=== PATIENT | female | born 1950 | race Caucasian/White ===

== ENCOUNTER → 2017-06-10 11:54 | Outpatient (CLI) | payer MEDICARE, OTHER, SELFPAY ==
[2017-06-10 15:52] LABS: Absolute Neutrophil Count 4.5 X10^3/uL (2.0-7.7); Basophil# 0.03 X10^3/uL; Basophil% 0.4 % (0-1); Eosinophils% 2.7 % (0-5); Hemoglobin 13.6 g/dl (12.0-15.0); Lymphocyte % 27.2 % (19-41); Mean Corp Hgb Conc 32.4 g/gl (32-36); Mean Corpuscular Volume 89.6 fL (81-99); Mean Platelet Vol. 10.3 fl (6.2-12.0); Monocyte# 0.62 X10^3/uL; Monocyte% 8.4 % (0-10); Neutrophil # 4.48 X10^3/uL (2.7-7.7); Platelet Count 332 K/mm3 (150-450); RBC Distribution Width SD 45.7 fl (35.1-43.9); Red Blood Count 4.69 M/mm3 (4.2-5.4); White Blood Count 7.4 K/mm3 (4.4-11.0)
[2017-06-10 16:01] LABS: POSITIVE COUNT NO; POSITIVE DIFFERENTIAL NO; POSITIVE MORPHOLOGY NO
[2017-06-10 16:07] LABS: Microalbumin,Random Urine < 5.0 mg/L (NO RANGE EST.)
[2017-06-10 16:19] LABS: Hemoglobin A1c 7.5 % (4.2-6.3)
[2017-06-10 16:20] LABS: ALB/GLOB Ratio 0.9 RATIO (0.9-2.4); AST(SGOT) 15 U/L (15-37); Alanine Aminotransfer ALT/SGPT 20 U/L (13-56); Albumin, Serum 3.7 g/dL (3.2-5.0); Alkaline Phosphatase 60 U/L (45-117); Anion Gap 7 (5-15); BUN 17 mg/dL (7-18); BUN/Creat Ratio 20.8 RATIO (10-20); Chloride 98 mmol/L (98-107); Cholesterol 151 mg/dL (200); Creatinine, Serum 0.82 mg/dL (0.55-1.02); EST Glomerular Filtration Rate 74 mL/min (>60); Est Glom Filt Rate - Afr Amer 89 mL/min (>60); Globulin 3.9 g/dL (2.2-4.2); Glucose 123 mg/dL (74-106); High Density Lipoprotein 41 mg/dL; Potassium 3.7 mmol/L (3.5-5.1); Protein, Total 7.6 g/dL (6.4-8.2); Sodium Level 137 mmol/L (136-145); Triglycerides 141 mg/dL; Very Low Density Lipoprotein 28 mg/dL (5-40)
[2017-06-10 16:26] LABS: Vitamin D,25 Hydroxy 48.4 ng/mL (29.95-100.01)
== END ==
PROVIDERS: Family Provider Family Medicine; PCP Family Medicine; Visit Provider Family Medicine
DX: E11.9 Type 2 diabetes mellitus without complications (principal); I10 Essential (primary) hypertension; E78.5 Hyperlipidemia, unspecified; E55.9 Vitamin D deficiency, unspecified
CPT/HCPCS: 36415; 80053; 80061; 82043; 82306; 82570; 83036; 85025

== ENCOUNTER 2017-10-20 21:53 | Emergency (ER) | payer MEDICARE, OTHER, SELFPAY ==
[2017-10-20 21:53] VITALS: BP 157/77; PULSE 89; RESP 16; TEMP 36.9; O2SAT 93; BMI 42.3
--- NOTE | 2017-10-20 22:11 | ED.VISSUMM ---
- ER Visit Summary Date of Service: 10/20/17 Chief Complaint: [Pain and swelling to left leg] History of Present Illness: The patient is a 67 F [presents the emergency department complaint of pain and swelling the left leg that she noticed 2 days ago. Patient states that she just got home from a bus trip where she was on a bus [address] Patient is concerned about blood clot. Patient states that both her daughter and her mother have had pulmonary emboli. Patient also gives history of travel to [place] at the end of August. Patient denies any chest pain or shortness of breath. Patient denies recent surgery. She herself is never had a blood clot before. Patient denies any trauma to her leg.] Physical Examination: [HEENT-PERRLA, EOMI. Cranial nerves II through XII grossly intact. TMs clear. Mucous membranes moist. No adenopathy. Cardiovascular-regular rate and rhythm without murmur or ectopy Lungs-clear to auscultation, chest wall stable without crepitus or subcu emphysema Abdomen-normoactive bowel sounds, soft, nontender, no rebound or rigidity, no peritoneal signs. Extremities-intact ?4, normal range of motion, normal pulses, atraumatic]. Left leg-patient has some trace edema noted. Patient does have some firmness in the soft tissues of the medial left leg along the venous distribution concerning for possible superficial phlebitis versus DVT. I do not palpate any ropes or cords behind the knee. There is no cellulitis. She is neurovascularly intact. Test Results: [None available at this time] Emergency Department Course and Treatment: [Patient was given 1 dose of Xarelto p.o. 20 mg and given a prescription to have ultrasound of left leg performed tomorrow] Treatment Plan: Patient to return to the hospital tomorrow to have venous duplex of the left lower extremity [] Disposition: [Discharged home in stable condition] Impression: [Left leg pain and swelling-rule out DVT] This note was generated with [employer] dictation software. It may contain incorrect words, spelling, and punctuation that were not noted in review of the chart prior to signing ED Disposition - Plan for ED Patient: Chief Complaint: Lower Extremity Injury Referrals: Dejuan Chavez DO [Primary Care Provider] -
--- NOTE | 2017-10-20 22:14 | ED.DEP ---
ED Disposition - Plan for ED Patient: Chief Complaint: Lower Extremity Injury Instructions: ED Leg Swelling Unilateral Referrals: Dejuan Chavez DO [Primary Care Provider] - As Needed Additional Instructions: have ultrasound of leg done tomorrow morning
[2017-10-20] MEDS: Rivaroxaban 20 MG Tablet PO (22:45)
== END 2017-10-20 22:47 | disposition home or self-care (01) ==
PROVIDERS: Emergency Provider Emergency Medicine; Family Provider Family Medicine; PCP Family Medicine
DX: M79.605 Pain in left leg (principal); M79.89 Other specified soft tissue disorders; I10 Essential (primary) hypertension; I27.20 Pulmonary hypertension, unspecified; E78.00 Pure hypercholesterolemia, unspecified; E11.9 Type 2 diabetes mellitus without complications; Z79.84 Long term (current) use of oral hypoglycemic drugs; Z79.899 Other long term (current) drug therapy
CPT/HCPCS: 99283

== ENCOUNTER → 2017-10-21 11:16 | Outpatient (CLI) | payer MEDICARE, OTHER, SELFPAY ==
--- NOTE | 2017-10-21 11:19 | VDLE_ITS ---
Reason For Study: LEG PAIN AND SWELLING RIGHT LEFT CFV is compressible, spontaneous, phasic, GSV is normal. competent and demonstrates normal CFV is compressible, spontaneous, phasic, augmentation. competent, and demonstrates normal Procedure augmentation. Exam performed in department. FV is compressible, spontaneous, phasic, A preliminary report was called and/or faxed competent and demonstrates normal to Dr. Chavez. augmentation. POP V is compressible, spontaneous, phasic, competent and demonstrates normal augmentation. T/P Trunk is compressible. PTV is compressible. LT PerV is compressible. Interpretation Summary Deep veins of the left lower extremity are patent and compressible segmentally. There is no evidence of left lower extremity deep vein thrombosis. Valvular competence appears intact within the proximal deep venous system on the left . The left greater saphenous vein appears patent and compressible segmentally. Ordering Physician: Shaylee Torres Referring Physician: Dejuan Chavez Performed By: Maria Elena Mclaughlin RVT
== END ==
PROVIDERS: Family Provider Family Medicine; PCP Family Medicine; Visit Provider Emergency Medicine
DX: M79.605 Pain in left leg (principal); M79.89 Other specified soft tissue disorders
CPT/HCPCS: 93971

== ENCOUNTER → 2018-08-15 10:56 | Outpatient (CLI) | payer MEDICARE, OTHER, SELFPAY ==
[2018-08-15 12:41] LABS: Absolute Lymphocyte Count 2.24 X10^3/ul (0.83-4.51); Absolute Neutrophil Count 5.3 X10^3/uL (2.0-7.7); Basophil# 0.06 X10^3/uL; Basophil% 0.7 % (0-1); Eosinophil# 0.22 X10^3/uL; Eosinophils% 2.6 % (0-5); Hematocrit 42.5 % (37-47); Hemoglobin 10.8 g/dl (12.0-15.0); Lymphocyte # 2.24 X10^3/ul (4.0); Lymphocyte % 26.5 % (19-41); Mean Corp Hgb Conc 25.4 g/gl (32-36); Mean Corpuscular Hgb 21.8 pg (27.0-32.0); Mean Corpuscular Volume 85.9 fL (81-99); Mean Platelet Vol. 10.2 fl (6.2-12.0); Monocyte# 0.61 X10^3/uL; Monocyte% 7.2 % (0-10); Neutrophil # 5.32 X10^3/uL (2.7-7.7); Neutrophil % 62.9 % (47-70); Platelet Count 326 K/mm3 (150-450); RBC Distribution Width CV 13.5 % (11.6-14.6); RBC Distribution Width SD 41.8 fl (35.1-43.9); Red Blood Count 4.95 M/mm3 (4.2-5.4); White Blood Count 8.5 K/mm3 (4.4-11.0)
[2018-08-15 12:47] LABS: POSITIVE COUNT NO; POSITIVE DIFFERENTIAL NO; POSITIVE MORPHOLOGY NO
[2018-08-15 13:17] LABS: Microalbumin:Creatinine Ratio 6.5 mg/g CRE (<30 mg/g CRE)
[2018-08-15 13:19] LABS: Vitamin D,25 Hydroxy 73.9 ng/mL (29.95-100.01)
[2018-08-15 13:20] LABS: ALB/GLOB Ratio 0.8 RATIO (0.9-2.4); AST(SGOT) 11 U/L (15-37); Alanine Aminotransfer ALT/SGPT 19 U/L (13-56); Albumin, Serum 3.4 g/dL (3.2-5.0); Alkaline Phosphatase 65 U/L (45-117); Anion Gap 9 (5-15); BUN 18 mg/dL (7-18); BUN/Creat Ratio 21.7 RATIO (10-20); Calcium,Total 9.1 mg/dL (8.5-10.1); Chloride 101 mmol/L (98-107); Cholesterol 150 mg/dL (200); Creatinine, Serum 0.83 mg/dL (0.55-1.02); EST Glomerular Filtration Rate 72 mL/min (>60); Est Glom Filt Rate - Afr Amer 88 mL/min (>60); Globulin 4.1 g/dL (2.2-4.2); Glucose 142 mg/dL (74-106); High Density Lipoprotein 43 mg/dL; Potassium 3.2 mmol/L (3.5-5.1); Protein, Total 7.5 g/dL (6.4-8.2); Sodium Level 141 mmol/L (136-145); Triglycerides 155 mg/dL; Very Low Density Lipoprotein 31 mg/dL (5-40)
[2018-08-15 13:29] LABS: Hemoglobin A1c 7.8 % (4.2-6.3)
== END ==
LOC: LAB.FUTURE 03-02 18:31 → BFHLAB 09-01 15:21
PROVIDERS: Family Provider Family Medicine; PCP Family Medicine; Visit Provider Family Medicine
DX: E11.9 Type 2 diabetes mellitus without complications (principal); I10 Essential (primary) hypertension; E78.5 Hyperlipidemia, unspecified; E55.9 Vitamin D deficiency, unspecified
CPT/HCPCS: 36415; 80053; 80061; 82043; 82306; 82570; 83036; 85025

== ENCOUNTER → 2018-09-16 13:03 | Outpatient (CLI) | payer MEDICARE, OTHER, SELFPAY ==
[2018-09-16 14:36] LABS: Absolute Lymphocyte Count 1.97 X10^3/ul (0.83-4.51); Absolute Neutrophil Count 4.3 X10^3/uL (2.0-7.7); Basophil# 0.05 X10^3/uL; Basophil% 0.7 % (0-1); Eosinophils% 2.8 % (0-5); Hematocrit 40.8 % (37-47); Hemoglobin 13.5 g/dl (12.0-15.0); Lymphocyte # 1.97 X10^3/ul (4.0); Mean Corp Hgb Conc 33.1 g/gl (32-36); Mean Corpuscular Volume 87.7 fL (81-99); Mean Platelet Vol. 10.1 fl (6.2-12.0); Monocyte# 0.55 X10^3/uL; Monocyte% 7.8 % (0-10); Neutrophil # 4.25 X10^3/uL (2.7-7.7); Neutrophil % 60.6 % (47-70); Platelet Count 277 K/mm3 (150-450); RBC Distribution Width CV 13.6 % (11.6-14.6); RBC Distribution Width SD 42.6 fl (35.1-43.9); Red Blood Count 4.65 M/mm3 (4.2-5.4)
[2018-09-16 14:41] LABS: POSITIVE COUNT NO; POSITIVE DIFFERENTIAL NO; POSITIVE MORPHOLOGY NO
[2018-09-16 15:10] LABS: Ferritin 78 ng/mL (8-252); Iron 78 ug/dL (50-170)
[2018-09-16 15:18] LABS: Vitamin B12 227 pg/mL (211-911)
== END ==
LOC: LAB.FUTURE 03-19 00:30 → BFHLAB 09-01 15:22
PROVIDERS: Family Provider Family Medicine; PCP Family Medicine; Visit Provider Family Medicine
DX: D64.9 Anemia, unspecified (principal)
CPT/HCPCS: 36415; 82607; 82728; 83540; 85025

== ENCOUNTER → 2019-04-06 12:27 | Outpatient (CLI) | payer MEDICARE, OTHER, SELFPAY ==
--- NOTE | 2019-04-06 12:33 | BI_ITS ---
MAMMOGRAPHY - BILATERAL SCREENING REASON FOR EXAM: Female, 68 years old. Routine annual screening examination. PERTINENT HISTORY: Sister with breast cancer. Aunt with breast cancer. TECHNIQUE: Digital bilateral breast joaquín (3D mammographic acquisition) in the CC and MLO projections. 2-D mediolateral oblique (MLO) and craniocaudad (CC) views of both breasts were obtained. CAD: Full Field Digital Mammography with Computer Added Detection was performed. COMPARISON: Comparison is made with prior study dated January 23, 2017 and outside examination dated July 21, 2014. FINDINGS: Breast Composition: The breasts are almost entirely fatty. There are no dominant masses or suspicious calcifications. No other significant abnormalities are identified. There has been no significant change since the prior study. BI/SCREEN MAMM (CAD) W/JOAQUÍN BILAT IMPRESSION: Stable bilateral screening mammogram. Yearly follow-up mammogram recommended. (A) ASSESSMENT CATEGORY: BIRADS Category 1: Negative. A letter regarding these results will be sent to the patient by the facility within 30 days. Approximately 10% of breast cancers are not detected by mammography. A normal mammogram should not delay biopsy of a clinically suspicious abnormality. [id number] Electronically Signed: Richard Doe, at 13:26 EST , Service support ,
== END ==
PROVIDERS: Family Provider Family Medicine; PCP Family Medicine; Referring Provider Family Medicine; Visit Provider Family Medicine
DX: Z12.31 Encounter for screening mammogram for malignant neoplasm of breast (principal); Z80.3 Family history of malignant neoplasm of breast
CPT/HCPCS: 77063; 77067

== ENCOUNTER → 2019-08-11 11:33 | Outpatient (CLI) | payer MEDICARE, OTHER, SELFPAY ==
[2019-08-11 15:04] LABS: Absolute Lymphocyte Count 2.22 X10^3/uL (0.83-4.51); Absolute Neutrophil Count 4.9 X10^3/uL (2.0-7.7); Basophil# 0.09 X10^3/uL; Basophil% 1.1 % (0-1); Eosinophil# 0.22 X10^3/uL; Eosinophils% 2.7 % (0-5); Hematocrit 41.6 % (37-47); Hemoglobin 13.5 g/dL (12.0-15.0); Lymphocyte # 2.22 X10^3/ul (4.0); Lymphocyte % 27.3 % (19-41); Mean Corp Hgb Conc 32.5 g/dL (32-36); Mean Corpuscular Hgb 29.9 pg (27.0-32.0); Mean Corpuscular Volume 92.2 fL (81-99); Mean Platelet Vol. 10.2 fl (6.2-12.0); Monocyte# 0.72 X10^3/uL; Monocyte% 8.9 % (0-10); NRBC Flagged by Analyzer 0 % (0-5); Neutrophil # 4.85 X10^3/uL (2.7-7.7); Neutrophil % 59.6 % (47-70); Platelet Count 302 K/mm3 (150-450); RBC Distribution Width CV 13.6 % (11.6-14.6); RBC Distribution Width SD 45.7 fl (35.1-43.9); Red Blood Count 4.51 M/mm3 (4.2-5.4); White Blood Count 8.1 K/mm3 (4.4-11.0)
[2019-08-11 15:26] LABS: Vitamin B12 1052 pg/mL (211-911); Vitamin D,25 Hydroxy 81.6 ng/mL
[2019-08-11 15:28] LABS: Microalbumin,Random Urine 14.3 mg/L (NO RANGE EST.); Microalbumin:Creatinine Ratio 9.7 mg/g CRE (<30 mg/g CRE)
[2019-08-11 15:31] LABS: ALB/GLOB Ratio 0.9 RATIO (0.9-2.4); AST(SGOT) 18 U/L (15-37); Alanine Aminotransfer ALT/SGPT 26 U/L (13-56); Albumin, Serum 3.4 g/dL (3.2-5.0); Alkaline Phosphatase 58 U/L (45-117); Anion Gap 7 (5-15); BUN 14 mg/dL (7-18); BUN/Creat Ratio 17.5 RATIO (10-20); Chloride 103 mmol/L (98-107); Cholesterol 165 mg/dL (200); EST Glomerular Filtration Rate 75 mL/min (>60); Est Glom Filt Rate - Afr Amer 91 mL/min (>60); Ferritin 111 ng/mL (8-252); Globulin 3.7 g/dL (2.2-4.2); Glucose 149 mg/dL (74-106); High Density Lipoprotein 45 mg/dL; Iron 90 ug/dL (50-170); Potassium 4.1 mmol/L (3.5-5.1); Protein, Total 7.1 g/dL (6.4-8.2); Sodium Level 139 mmol/L (136-145); Thyroid Stim Hormone (TSH) 4.01 uIU/mL (0.358-3.74); Triglycerides 189 mg/dL; Very Low Density Lipoprotein 38 mg/dL (5-40)
== END ==
PROVIDERS: PCP Family Medicine; Visit Provider Family Medicine
DX: E11.9 Type 2 diabetes mellitus without complications (principal); I10 Essential (primary) hypertension; D64.9 Anemia, unspecified; E78.5 Hyperlipidemia, unspecified; E53.8 Deficiency of other specified B group vitamins; E55.9 Vitamin D deficiency, unspecified; Z51.81 Encounter for therapeutic drug level monitoring
CPT/HCPCS: 36415; 80053; 80061; 82043; 82306; 82570; 82607; 82728; 83036; 83540; 84443; 85025

== ENCOUNTER → 2020-02-23 13:00 | Outpatient (CLI) | payer MEDICARE, OTHER, SELFPAY ==
[2020-02-23 15:33] LABS: Hemoglobin A1c 6.9 % (3.8-5.6)
== END ==
PROVIDERS: PCP Family Medicine; Visit Provider Family Medicine
DX: E11.9 Type 2 diabetes mellitus without complications (principal); E55.9 Vitamin D deficiency, unspecified
CPT/HCPCS: 36415; 82306; 83036

== ENCOUNTER → 2020-03-10 06:39 | Outpatient (CLI) | payer MEDICARE, OTHER, SELFPAY ==
--- NOTE | 2020-03-10 09:46 | STRESSREP_ITS ---
Stress Test Report Date: Procedure: Pharmacologic stress nuclear imaging study Indications: Shortness of breath/dyspnea on exertion; fatigue Consent: Per the patient Procedure: The patient underwent pharmacologic (Regadenoson) evaluation with a peak heart rate of 113 beats per minute (75%predicted maximal heart rate) and a peak blood pressure of 128/84 mmHg. The baseline ECG demonstrated sinus rhythm; PVCs; nonspecific ST/T wave abnormality. The peak pharmacologic ECG demonstrated no obvious ECG changes. There were occasional PVCs pretest, during infusion, and recovery. There was no complaint of chest discomfort during pharmacologic infusion or recovery. The examination was discontinued secondary to completion of protocol. Impression: 1. Pharmacologic (Regadenoson) evaluation 2. Peak pharmacologic ECG with with no obvious ECG changes. 3. There were occasional PVCs pretest, during infusion, and recovery. 4. Nuclear images pending Myocardial perfusion imaging study: Technique: The patient was injected with 14.8 millicuries of technetium 99m Cardiolite and subsequently rest SPECT Cardiolite nuclear imaging was obtained in the horizontal long, vertical long, and short axis views. The patient underwent pharmacologic (Regadenoson) evaluation with a peak heart rate of 113 beats per minute (75% percent predicted maximal heart rate) and a peak blood pressure of 128/84 mmHg. The patient was injected with 44.5 millicuries of technetium 99m Cardiolite and subsequently stress SPECT Cardiolite nuclear imaging was obtained in the horizontal long, vertical long, and short axis views. A gated Cardiolite study at peak stress was obtained. Interpretation: Rest and stress SPECT Cardiolite nuclear imaging status post realignment, normalization, and attenuation correction demonstrate relative uniform tracer uptake and myocardial perfusion appearing within normal limits. There is end systolic thickening and brightening. The gated Cardiolite study demonstrates myocardial thickening and inward wall motion. The reported LVEF is 15%. Impression: 1. Rest and stress SPECT Cardiolite nuclear imaging demonstrate relative uniform tracer uptake and myocardial perfusion appearing within normal limits. 2. The gated Cardiolite study reports an LVEF of 15%. Comment: Gated Cardiolite study reports an LVEF 15%: Question accuracy secondary to underlying ventricular ectopy: Consider further evaluation of left ventricular wall motion, systolic function, and estimated LVEF with a transthoracic echocardiogram if clinically indicated. This note was generated with [employer] software. It may contain incorrect words, spelling, and punctuation that were not noted in checking the note before signing.
== END ==
PROVIDERS: PCP Family Medicine; Referring Provider Family Medicine; Visit Provider Family Medicine
DX: R06.00 Dyspnea, unspecified (principal); R53.83 Other fatigue; E11.9 Type 2 diabetes mellitus without complications
CPT/HCPCS: 78452; 93017; A9500; A4216; J2785

== ENCOUNTER → 2020-03-23 08:23 | Outpatient (CLI) | payer MEDICARE, OTHER, SELFPAY ==
--- NOTE | 2020-03-23 08:24 | ECHOCS_ITS ---
Reason For Study: DYSPNEA ON EXERTION Procedure This was a 2D Doppler, Color Flow transthoracic echocardiogram. The study was technically difficult. Exam performed in department. Left Ventricle Normal LV size. Left ventricular systolic function is normal. The estimated ejection fraction is 65 %. Stage 1 diastolic dysfunction. No regional wall motion abnormalities noted. Right Ventricle Normal RV size. Normal systolic function. Atria Normal left atrium. Normal right atrium. Tricuspid Valve Normal tricuspid valve. Mild (1+) tricuspid valve insufficiency. Pulmonary artery systolic pressure is 26 mmHg. Aortic Valve Normal aortic valve. Pulmonic Valve The pulmonic valve is not well visualized. Great Vessels Normal aortic root. The pulmonary artery is normal size. Normal inferior vena cava. Pericardium/Pleural No pericardial effusion. Medication 22 gauge I.V. with prn adaptor inserted into right arm. Diluted definity 2ml given slow IV push to enhance endocardial definition. MMode/2D Measurements & Calculations LVIDd: 4.4 cm IVSd: 0.98 cm Ao root diam: 3.2 cm LVIDs: 2.9 cm LVPWd: 1.0 cm RVDd: 2.9 cm FS: 33.5 % LAV(MOD-bp): 38.4 ml LVAd ap4: 20.5 cm2 SV(MOD-sp4): 33.0 ml LAV(MOD-bp) Indexed: 19.5 ml/m2 EDV(MOD-sp4): 52.0 ml LAV(MOD-sp2): 40.2 ml EDV(sp4-el): 51.9 ml LAV(MOD-sp4): 36.9 ml LVAs ap4: 10.9 cm2 ESV(MOD-sp4): 19.0 ml ESV(sp4-el): 19.3 ml EF(MOD-sp4): 63.4 % EF(sp4-el): 62.7 % SV(sp4-el): 32.5 ml LA A4 area: 15.2 cm2 LA dimension(2D): 3.5 cm RA A4 area: 9.6 cm2 Time Measurements MV dec time: 0.29 sec Doppler Measurements & Calculations MV E max yoel: 45.4 cm/sec Lat Peak E' Yoel: 5.6 cm/sec Med Peak E' Yoel: 7.2 cm/sec MV A max yoel: 75.1 cm/sec E/E' lat: 8.1 E/E' med: 6.3 MV E/A: 0.60 Ao V2 max: 123.4 cm/sec LV V1 max: 98.6 cm/sec PA V2 max: 89.8 cm/sec Ao max P.1 mmHg LV V1 max P.9 mmHg TR max yoel: 237.5 cm/sec TR max P.1 mmHg Interpretation Summary Normal LV size. Left ventricular systolic function is normal. The estimated ejection fraction is 65 %. Stage 1 diastolic dysfunction. Contrast injection was performed. Ordering Physician: Dejuan Chavez Referring Physician: Dejuan Chavez Performed By: Haleigh Baron RDCS
== END ==
PROVIDERS: PCP Family Medicine; Referring Provider Family Medicine; Visit Provider Family Medicine
DX: R06.00 Dyspnea, unspecified (principal); R94.30 Abnormal result of cardiovascular function study, unspecified
CPT/HCPCS: 93306; Q9957; A4216; C8929

== ENCOUNTER → 2020-08-26 13:55 | Outpatient (CLI) | payer MEDICARE, OTHER, SELFPAY ==
[2020-08-26 15:38] LABS: Absolute Lymphocyte Count 2.11 X10^3/uL (0.83-4.51); Absolute Neutrophil Count 4.7 X10^3/uL (2.0-7.7); Basophil# 0.08 X10^3/uL; Eosinophil# 0.16 X10^3/uL; Eosinophils% 2.1 % (0-5); Hematocrit 41.6 % (37-47); Hemoglobin 13.4 g/dL (12.0-15.0); Lymphocyte # 2.11 X10^3/ul (0.83-4.51); Lymphocyte % 27.5 % (19-41); Mean Corp Hgb Conc 32.2 g/dL (32-36); Mean Corpuscular Hgb 28.8 pg (27.0-32.0); Mean Corpuscular Volume 89.3 fL (81-99); Monocyte# 0.63 X10^3/uL; Monocyte% 8.2 % (0-10); NRBC Flagged by Analyzer 0 % (0-5); Neutrophil # 4.69 X10^3/uL (2.7-7.7); Neutrophil % 61.1 % (47-70); Platelet Count 283 K/mm3 (150-450); RBC Distribution Width CV 13.2 % (11.6-14.6); RBC Distribution Width SD 43.2 fl (35.1-43.9); Red Blood Count 4.66 M/mm3 (4.2-5.4); White Blood Count 7.7 K/mm3 (4.4-11.0)
[2020-08-26 15:48] LABS: Hemoglobin A1c 7.1 % (3.8-5.6)
[2020-08-26 15:58] LABS: Microalbumin,Random Urine 6.2 mg/L (NO RANGE EST.); Microalbumin:Creatinine Ratio 6.8 mg/g CRE (<30 mg/g CRE)
[2020-08-26 16:45] LABS: Vitamin B12 346 pg/mL (211-911); Vitamin D,25 Hydroxy 48.3 ng/mL
[2020-08-26 16:58] LABS: ALB/GLOB Ratio 0.9 RATIO (0.9-2.4); AST(SGOT) 11 U/L (15-37); Alanine Aminotransfer ALT/SGPT 14 U/L (13-56); Albumin, Serum 3.4 g/dL (3.2-5.0); Alkaline Phosphatase 65 U/L (45-117); Anion Gap 6 (5-15); BUN 18 mg/dL (7-18); Calcium,Total 9.1 mg/dL (8.5-10.1); Chloride 106 mmol/L (98-107); Cholesterol 168 mg/dL (200); Creatinine, Serum 0.82 mg/dL (0.55-1.02); EST Glomerular Filtration Rate 73 mL/min (>60); Est Glom Filt Rate - Afr Amer 88 mL/min (>60); Globulin 3.7 g/dL (2.2-4.2); Glucose 122 mg/dL (74-106); High Density Lipoprotein 49 mg/dL; Potassium 4.1 mmol/L (3.5-5.1); Protein, Total 7.1 g/dL (6.4-8.2); Sodium Level 138 mmol/L (136-145); Thyroid Stim Hormone (TSH) 2.47 uIU/mL (0.358-3.74); Triglycerides 144 mg/dL; Very Low Density Lipoprotein 29 mg/dL (5-40)
== END ==
PROVIDERS: PCP Family Medicine; Referring Provider Family Medicine; Visit Provider Family Medicine
DX: E11.9 Type 2 diabetes mellitus without complications (principal); I10 Essential (primary) hypertension; E55.9 Vitamin D deficiency, unspecified; E53.8 Deficiency of other specified B group vitamins; R53.83 Other fatigue
CPT/HCPCS: 36415; 80053; 80061; 82043; 82306; 82570; 82607; 83036; 84443; 85025

== ENCOUNTER 2020-10-22 18:35 | Observation (INO) | payer MEDICARE, OTHER, SELFPAY ==
[2020-10-22] VITALS (7 sets, daily range): BP systolic 153–200; BP diastolic 75–110; PULSE 69–88; RESP 17–20; TEMP 35.8–36.8; O2SAT 94–96; BMI 36.5; BMI 38.8
--- NOTE | 2020-10-22 18:45 | EX.ED.DYSGE1 ---
HPI History of Present Illness Chief Complaint: Allergic Reaction Detail of Chief Complaint: Swollen tongue, on lisinopril for hypertension. Informant: patient Onset/Context/Timing Onset: Today and Hours Context: Gradual Onset Timing: Continuous Current Severity: Moderate Maximum Severity: Moderate Narrative Narrative: 70-year-old female history of hypertension, diabetes and depression. She is on lisinopril and has been for years. States about 3 hours ago she noticed swelling of her tongue. She has had this happen before but not this severe normally it went away on its own. She denies any other complaints. She is able to swallow and breathe currently. She denies any itching or skin rashes. Prior similar symptoms: Yes Recent Illness/Hospitalization: No [facility] Medical History (Updated 10/22/20 @ 18:51 by Azul Ken) Hypertension Home Medications clonidine HCl 0.1 mg PO DAILY 10/20/17 [History Last Taken Unknown] metformin 500 mg PO 4X/DAY 10/20/17 [History Last Taken Unknown] potassium chloride [K-Tab ER] 20 meq PO BID 10/20/17 [History Last Taken Unknown] pravastatin 20 mg PO DAILY 10/20/17 [History Last Taken Unknown] valsartan-hydrochlorothiazide 1 tab PO DAILY 10/20/17 [History Last Taken Unknown] venlafaxine [Effexor Xr] 75 mg PO DAILY 10/20/17 [History Last Taken Unknown] lisinopril-hydrochlorothiazide tab 10/22/20 [History Last Taken Unknown] Allergy/AdvReac Type Severity Reaction Status Date / Time No Known Allergies Allergy Verified 10/22/20 18:36 Social History Smoking Status: Never smoker ROS ROS ED ROS Narrative Denies recent illness. Review of Systems ROS Unobtainable: Denies due to encephalopathy Constitutional Constitutional ED: Denies fever(s) Eyes Eyes: Denies change in vision ENT ENT ED: Denies ear pain or rhinorrhea Cardiovascular Cardiovascular: Denies chest pain Respiratory/Chest Respiratory/Chest: Denies cough or dyspnea Gastrointestinal Gastrointestinal: Denies abdominal pain, diarrhea, nausea or vomiting Genitourinary Genitourinary ED: Denies dysuria Musculoskeletal Musculoskeletal: Denies myalgias Integumentary Denies rash Neurologic Neurologic: Denies headache(s) Psychiatric Psychiatric: Denies depression Endocrine Endocrinology: Denies polyuria Allergic/Immunologic Allergic/Immunologic ED: Denies urticaria EXAM Physical Exam Narrative Exam Narrative: Shows moderate swelling of her tongue. Currently airway is patent. She is not drooling. She is not tripoding. She is in no respiratory distress. Neck nontender no lymphadenopathy. Lungs clear to auscultation. Heart regular rhythm no murmur. Abdomen soft nontender. Moving all 4 extremities. No edema. Skin no rashes. Neurologically she is awake and alert.Elderly female vital signs are stable afebrile pulse ox 95% on room air. Const Vital Signs: 10/22/20 18:38 10/22/20 19:10 10/22/20 19:27 Temperature 96.4 F L Temperature Source Temporal Pulse Rate 81 75 74 Respiratory Rate 18 17 19 H Blood Pressure 153/110 H 173/75 H Blood Pressure Mean 124 107 Pulse Ox 95 94 95 Oxygen Delivery Method Room Air Room Air Room Air Positive well nourished and well developed General Appearance ED: well developed and NAD; Negative for cyanotic or diaphoretic HEENT Reports moist mucous membranes HEENT Narrative: Moderately swollen tongue. Airway intact. No drooling. No stridor. Negative for trauma or tenderness Eyes PERRL and EOMs intact bilaterally Neck no lymphadenopathy, supple and no JVD General: Negative for tenderness Chest Wall inspection of chest normal and palpation of chest normal Resp normal respiratory effort and clear to auscultation bilaterally Cardio regular rate, regular rhythm, S1 normal heart sound, S2 normal heart sound and no murmurs GI normal to inspection, nondistended, normoactive bowel sounds, non-tender, non-distended and no masses Auscultation: normoactive bowel sounds Palpation: soft; Negative for tender Back/Spine no CVA tenderness General Back: Negative for CVA tenderness Extremity normal to inspection General Extremety ED: Negative for edema or tenderness General Extremity: Negative for edema Neuro oriented x3, CN's II-XII intact bilaterally and no sensory deficits noted Sensorium / Orientation: alert; Negative for orientation impaired, lethargic or stuporous Motor Exam: strength 5/5 throughout Psych mental status grossly normal Skin no rashes or lesions noted and no wounds MDM MDM MDM Narrative Medical decision making narrative: Patient with swollen tongue most likely secondary to RONI inhibitor induced angioneurotic edema. She will be treated with IV Solu-Medrol, Benadryl and Pepcid. She will be observed very closely because if this gets worse we may have to make a decision on protecting her airway. She does not need that at this time. If she improves there is a small chance she may well go home if it stays in the same or gets worse she will definitely be admitted. Multiple repeat exams the last one being at 8:05 PM. Patient is no worse but she is also showed no signs of improvement. Given the amount of swelling she has in her tongue she will need to be watched closely in the hospital overnight. She does not need emergent airway intervention at this time. She is in no distress. Lab Data Attestation: I reviewed the patient's lab results. Lab results narrative: CBC unremarkable white count 8. Hemoglobin 13. Chemistries unremarkable gap 7. Creatinine 0.8. Glucose 158. Labs: Laboratory Results - last 24 hr 10/22/20 10/22/20 18:50 18:50 WBC 8.6 RBC 4.65 Hgb 13.3 Hct 42.1 MCV 90.5 MCH 28.6 MCHC 31.6 L RDW Std Deviation 44.6 H RDW Coeff of Leonora 13.5 Plt Count 320 MPV 10.0 Immature Gran % (Auto) 0.500 Neut % (Auto) 55.0 Lymph % (Auto) 31.4 [place] % (Auto) 9.7 Eos % (Auto) 2.6 Baso % (Auto) 0.8 Absolute Neuts (auto) 4.7 Absolute Lymphs (auto) 2.70 Nucleated RBC % 0 Sodium 138 Potassium 4.0 Chloride 105 Carbon Dioxide 26.0 Anion Gap 7 BUN 18 Creatinine 0.86 Estim Creat Clear Calc 49.63 Est GFR (MDRD) Af Amer 83 Est GFR (MDRD) Non-Af 69 BUN/Creatinine Ratio 20.8 H Glucose 158 H Calcium 9.0 Discharge Plan Triage Chief Complaint: Allergic Reaction Other Complaint: Edema ED Provider: Eleazar Oliveira Dx/Rx/DC Orders Clinical Impression: Angioneurotic edema Prescriptions: No Action clonidine HCl 0.1 MG tablet 0.1 mg PO DAILY RF: 0 venlafaxine [Effexor XR] 75 MG capsule,extended release 24hr 75 mg PO DAILY RF: 0 pravastatin 20 MG tablet 20 mg PO DAILY RF: 0 valsartan-hydrochlorothiazide 1 EACH tablet 1 tab PO DAILY RF: 0 metformin 500 MG tablet,ER ethan.retention 24 hr 500 mg PO 4X/DAY RF: 0 potassium chloride [K-Tab] 20 MEQ Tablet.Er 20 meq PO BID RF: 0 lisinopril-hydrochlorothiazide 20-12.5 mg tablet RF: 0 Primary Care Provider: Dejuan Chavez Referrals: Dejuan Chavez DO [Primary Care Provider] - Disposition Disposition: Acute Care Hospital [facility]
[2020-10-22] MEDS: DiphenhydrAMINE 50 MG/ML Syringe 25 MG IV (18:47)
[2020-10-22] MEDS: MethylPREDNISolone 125 MG/2 ML Vial IV (18:48)
[2020-10-22] MEDS: Famotidine 200 MG/20 ML MDV 20 MG in 0.9% Normal Saline (Pres. free 8 ML 300 MG IV (18:49)
[2020-10-22 19:17] LABS: Absolute Neutrophil Count 4.7 X10^3/uL (2.0-7.7); Basophil# 0.07 X10^3/uL; Basophil% 0.8 % (0-1); Eosinophil# 0.22 X10^3/uL; Eosinophils% 2.6 % (0-5); Hematocrit 42.1 % (37-47); Hemoglobin 13.3 g/dL (12.0-15.0); Lymphocyte % 31.4 % (19-41); Mean Corp Hgb Conc 31.6 g/dL (32-36); Mean Corpuscular Hgb 28.6 pg (27.0-32.0); Mean Corpuscular Volume 90.5 fL (81-99); Monocyte# 0.83 X10^3/uL; Monocyte% 9.7 % (0-10); NRBC Flagged by Analyzer 0 % (0-5); Neutrophil # 4.73 X10^3/uL (2.7-7.7); Platelet Count 320 K/mm3 (150-450); RBC Distribution Width CV 13.5 % (11.6-14.6); RBC Distribution Width SD 44.6 fl (35.1-43.9); Red Blood Count 4.65 M/mm3 (4.2-5.4); White Blood Count 8.6 K/mm3 (4.4-11.0)
[2020-10-22 19:27] LABS: Anion Gap 7 (5-15); BUN 18 mg/dL (7-18); BUN/Creat Ratio 20.8 RATIO (10-20); Chloride 105 mmol/L (98-107); Creatinine, Serum 0.86 mg/dL (0.55-1.02); EST Glomerular Filtration Rate 69 mL/min (>60); Est Glom Filt Rate - Afr Amer 83 mL/min (>60); Estimated Creatinine Clearance 49.63 ml/min; Glucose 158 mg/dL (74-106); Sodium Level 138 mmol/L (136-145)
--- NOTE | 2020-10-22 20:37 | CT_ITS ---
STUDY: CT SOFT TISSUE NECK WITH CONTRAST REASON FOR EXAM: Female, 70 years old. Swelling of base of tongue RADIATION DOSAGE (If Supplied By Facility): CTDIvol = ( 17.14 ) mGy, DLP = ( 470.88 ) mGycm TECHNIQUE: The patient was scanned in a multi-detector CT scanner. High resolution transaxial imaging was performed following intravenous administration of IV 75mL Isovue-370. Sagittal and coronal images were reconstructed. Individualized dose optimization techniques were used for this CT. COMPARISON: None. FINDINGS: Normal bilateral parotid glands. 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 Normal bilateral parapharyngeal spaces. Normal bilateral carotid spaces. There is subcutaneous edema around the submandibular glands, left more than right. Normal visualized nasopharynx. Normal retropharyngeal space. Normal perivertebral space. Normal visualized bilateral faucial tonsils. The visualized tongue, tongue base and oropharynx are normal. The visualized cervical lymph nodes (levels I-) are within normal size limits, and maintain normal morphology. There is questionable fullness at the right side of the tongue base with slight asymmetric hypoattenuation, Image 42 series 2. A collection cannot be excluded. There is no abnormal contrast enhancement. Normal epiglottis, bilateral vallecula and hypopharynx. The pre-epiglottic and paraglottic adipose spaces are normal. There is slight soft tissue fullness at the left piriform sinus. Normal subglottic trachea. Normal bilateral lobes of the thyroid gland. Limited evaluation of the pulmonary apices due to some motion. Patchy right upper lobe infiltrates cannot be excluded. Normal visualized paranasal sinuses. Normal visualized cervical spine. CT/Soft Tissue Neck WITH Contrast IMPRESSION: There is subcutaneous edema around the submandibular glands, left more than right. Slight soft tissue fullness at the left piriform sinus. There is questionable fullness at the right side of the tongue base with slight asymmetric hypoattenuation, Image 42 series 2. A collection cannot be excluded. Electronically Signed: Damon Campos DO at 23:49 EDT Tel [phone], Service support ,
--- NOTE | 2020-10-22 20:49 | HP.PCM_ITS ---
HPI - General HPI Narrative VARGAS RODRIGUEZ, is a 70 F who presents swollen tongue with muffling of her voice and difficulty speaking and difficulty swallowing. Presumed to be having angioneurotic edema and has been treated with steroids, antihistamines and PPI therapy systemically. Patient thinks symptoms are slightly better. Patient has been on lisinopril for many years. Had similar episode about a month ago that subsided on its own without any specific treatments. Patient denies any family history of angioedema. She denies any fever or chills. Denies any difficulty breathing. [facility] Medical History (Updated 10/22/20 @ 20:[address] Uriel Osborne MD) Hypertension Home Medications clonidine HCl 0.1 mg PO DAILY 10/20/17 [History Last Taken Unknown] metformin 500 mg PO 4X/DAY 10/20/17 [History Last Taken Unknown] potassium chloride [K-Tab ER] 20 meq PO BID 10/20/17 [History Last Taken Unknown] pravastatin 20 mg PO DAILY 10/20/17 [History Last Taken Unknown] valsartan-hydrochlorothiazide 1 tab PO DAILY 10/20/17 [History Last Taken Unknown] venlafaxine [Effexor Xr] 75 mg PO DAILY 10/20/17 [History Last Taken Unknown] lisinopril-hydrochlorothiazide tab 10/22/20 [History Last Taken Unknown] Allergy/AdvReac Type Severity Reaction Status Date / Time No Known Allergies Allergy Verified 10/22/20 18:36 Social History Smoking Status: Never smoker ROS ROS Narrative Denies any chest pain or shortness of breath. All other systems reviewed and essentially negative. Vital Signs Vital Signs Vital Signs: 10/22/20 18:38 10/22/20 19:10 10/22/20 19:27 Temperature 35.8 C L Temperature Source Temporal Pulse Rate 81 75 74 Respiratory Rate 18 17 19 H Blood Pressure 153/110 H 173/75 H Blood Pressure Mean 124 107 Pulse Ox 95 94 95 Oxygen Delivery Method Room Air Room Air Room Air 10/22/20 20:07 Temperature Temperature Source Pulse Rate 69 Respiratory Rate 18 Blood Pressure 180/83 H Blood Pressure Mean 115 Pulse Ox Oxygen Delivery Method Room Air Weight Weight: 93.44 kg Body Mass Index (BMI) 36.5 Physical Exam Narrative General. Elderly woman. Not in any obvious distress. Quite pleasant. HEENT. Examination of the oral cavity reveals a tongue that itself is not swelling about the base/floor of the tongue and mouth is quite swollen and boggy and edematous. Neck. Submental and anterior submandibular region is swollen and boggy. Nontender though. Lungs. Clear to auscultation. Heart. First and second heart sounds heard no murmurs. Abdomen. Obese. Moves with respiration. Extremities. No edema in extremities. 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 Conscious and alert. Oriented x3. Power 5 out of 5 in all extremities. Gait not tested. All other organ systems examined and essentially negative. Results Lab / Micro Data Result Diagrams: 10/22/20 18:50 10/22/20 18:50 Labs: Laboratory Results - last 24 hr 10/22/20 18:50: WBC 8.6, RBC 4.65, Hgb 13.3, Hct 42.1, MCV 90.5, MCH 28.6, MCHC 31.6 L, RDW Std Deviation 44.6 H, RDW Coeff of Leonora 13.5, Plt Count 320, MPV 10.0, Immature Gran % (Auto) 0.500, Neut % (Auto) 55.0, Lymph % (Auto) 31.4, Andrew % (Auto) 9.7, Eos % (Auto) 2.6, Baso % (Auto) 0.8, Absolute Neuts (auto) 4.7, Absolute Lymphs (auto) 2.70, Nucleated RBC % 0 10/22/20 18:50: Sodium 138, Potassium 4.0, Chloride 105, Carbon Dioxide 26.0, Anion Gap 7, BUN 18, Creatinine 0.86, Estim Creat Clear Calc 49.63, Est GFR (MDRD) Af Amer 83, Est GFR (MDRD) Non-Af 69, BUN/Creatinine Ratio 20.8 H, Glucose 158 H, Calcium 9.0 Assessment & Plan Assessment/Plan (1) Severe tongue swelling: PLAN: In the absence of normal-appearing lips without any swelling, quite unusual for angioedema. Also, swelling is mainly involving not the tongue itself to the floor of the mouth and base of the tongue. Quite unusual. Nonetheless we will presume this is angioneurotic edema. Continue treatment with steroids and antihistamines chemically. CT scan of the neck with contrast. Close monitoring. Hold RONI inhibitor use. Check C1 esterase inhibitor levels. (2) Hypertension: PLAN: Poorly controlled. Markedly elevated at this time. Anxiety likely contributing. Will modify antihypertensive regimen. (3) Morbid obesity: PLAN: Lifestyle modifications as able. (4) Type 2 diabetes mellitus: PLAN: Fair control. A1c of 7.1. Hold Metformin in anticipation of contrast exposure. Basal and mealtime insulin. Charges/Coding Visit Charges Inpatient E&M: 95772 Init Hosp L3
[2020-10-22] MEDS: cloNIDine HCl 0.1 MG Tablet PO (22:24)
[2020-10-22] MEDS: amLODIPine 10 MG Tablet PO (22:24)
[2020-10-22] MEDS: Insulin Lispro 100 UNIT/ML INSULN.PEN SC (22:34)
[2020-10-22 22:35] LABS: Bedside Glucose 240 mg/dL (70-110)
[2020-10-23 00:15] VITALS: BP 130/68; PULSE 84; RESP 18; TEMP 36.3; O2SAT 93
[2020-10-23 03:11] VITALS: PULSE 81
[2020-10-23] MEDS: DiphenhydrAMINE 50 MG/ML Syringe IV (05:24)
[2020-10-23 05:30] VITALS: BP 141/96; PULSE 90; RESP 18; TEMP 36.4; O2SAT 94
[2020-10-23 06:39] LABS: Absolute Neutrophil Count 9.9 X10^3/uL (2.0-7.7); Basophil# 0.03 X10^3/uL; Basophil% 0.3 % (0-1); Hematocrit 42.6 % (37-47); Hemoglobin 13.5 g/dL (12.0-15.0); Mean Corp Hgb Conc 31.7 g/dL (32-36); Mean Corpuscular Hgb 28.8 pg (27.0-32.0); Mean Platelet Vol. 9.9 fl (6.2-12.0); Monocyte# 0.13 X10^3/uL; Monocyte% 1.2 % (0-10); NRBC Flagged by Analyzer 0 % (0-5); Neutrophil # 9.85 X10^3/uL (2.7-7.7); Neutrophil % 88.8 % (47-70); Platelet Count 299 K/mm3 (150-450); RBC Distribution Width CV 13.2 % (11.6-14.6); RBC Distribution Width SD 44.1 fl (35.1-43.9); Red Blood Count 4.68 M/mm3 (4.2-5.4); White Blood Count 11.1 K/mm3 (4.4-11.0)
[2020-10-23 07:00] VITALS: PULSE 73
[2020-10-23] MEDS: Insulin Lispro 100 UNIT/ML INSULN.PEN SC ×2 (07:00→11:27)
[2020-10-23 07:05] LABS: Bedside Glucose 256 mg/dL (70-110)
[2020-10-23 07:09] LABS: ALB/GLOB Ratio 0.8 RATIO (0.9-2.4); AST(SGOT) 12 U/L (15-37); Alanine Aminotransfer ALT/SGPT 19 U/L (13-56); Albumin, Serum 3.2 g/dL (3.2-5.0); Alkaline Phosphatase 64 U/L (45-117); Anion Gap 9 (5-15); BUN 17 mg/dL (7-18); BUN/Creat Ratio 19.1 RATIO (10-20); Chloride 103 mmol/L (98-107); Creatinine, Serum 0.89 mg/dL (0.55-1.02); EST Glomerular Filtration Rate 67 mL/min (>60); Est Glom Filt Rate - Afr Amer 80 mL/min (>60); Estimated Creatinine Clearance 45.85 ml/min; Globulin 3.9 g/dL (2.2-4.2); Glucose 245 mg/dL (74-106); Potassium 4.1 mmol/L (3.5-5.1); Protein, Total 7.1 g/dL (6.4-8.2); Sodium Level 136 mmol/L (136-145)
[2020-10-23] MEDS: amLODIPine 10 MG Tablet PO (09:11)
[2020-10-23] MEDS: Enoxaparin 40 MG/0.4 ML Syringe SC (09:12)
[2020-10-23] MEDS: Venlafaxine XR 75 MG Capsule PO (09:13)
[2020-10-23] MEDS: cloNIDine HCl 0.1 MG Tablet PO (09:13)
[2020-10-23] MEDS: hydroCHLOROthiazide 25 MG Tablet PO (09:13)
[2020-10-23 10:06] VITALS: BP 144/90; PULSE 72; RESP 16; TEMP 36.3; O2SAT 94
--- NOTE | 2020-10-23 11:36 | PCM.DC ---
Discharge Instructions Diet Discharge Diet: No restrictions Activity Discharge Activity: Return to Normal Activity Weight Bearing Status: Weight bearing as tolerated Dressing / Incision Call your doctor if you observe: Fever of 101 or Higher, Numbness or Tingling, Shortness of breath, Dizziness, Chest pain, Increased palpitations (irregular heartbeat) and Calf discomfort Follow Up Care Please Follow Up With: Primary care provider When: Within the next two weeks. Test Results: Test results from this visit will be discussed in further detail at your follow-up appointment, if applicable. Discharge Plan Admission Admit Date/Time: 10/22/20 20:38 Primary Reason for Your Visit: Angioedema Attending Provider: Tushar Martinez Primary Care Provider: Dejuan Chavez Discharge Orders/Prescriptions Prescriptions: New amlodipine 10 mg Tablet 10 mg PO DAILY Qty: 30 RF: 0 hydrochlorothiazide 25 mg Tablet 25 mg PO DAILY Qty: 30 RF: 0 prednisone 20 mg tablet 40 mg PO DAILY Qty: 10 RF: 0 Continued clonidine HCl 0.1 MG tablet 0.1 mg PO DAILY RF: 0 venlafaxine [Effexor XR] 75 MG capsule,extended release 24hr 75 mg PO DAILY RF: 0 pravastatin 20 MG tablet 20 mg PO DAILY RF: 0 metformin 500 MG tablet,ER ethan.retention 24 hr 500 mg PO 4X/DAY RF: 0 potassium chloride [K-Tab] 20 MEQ tablet extended release 20 meq PO BID RF: 0 cholecalciferol (vitamin D3) [Vitamin D3] 125 mcg (5,000 unit) Tablet 125 mcg PO QMONTH RF: 0 Discontinued lisinopril-hydrochlorothiazide 20-12.5 mg tablet 1 tab PO DAILY RF: 0 Referrals / Follow Up: Dejuan Chavez DO [Primary Care Provider] - Within 2 Weeks Disposition Disposition (needs filled in before D/C Order can be placed): Home, Self Care
[2020-10-23 11:39] VITALS: BP 117/66; PULSE 83; RESP 16; TEMP 36.6; O2SAT 99
[2020-10-23 12:05] LABS: Bedside Glucose 249 mg/dL (70-110)
--- NOTE | 2020-10-23 12:41 | DS.PCM_ITS ---
Documented by User: Omer RUIZ 10/23/20 12:52 Providers Date of Admission: 10/22/20 Primary Care Physician: Dr. Dejuan Chavez, DO Reason For Visit: ANGIOEDEMA Diagnosis Discharge Diagnosis (1) Severe tongue swelling: Status: Acute Code(s): R22.0 - Localized swelling, mass and lump, head (2) Hypertension: Status: Chronic Code(s): I10 - Essential (primary) hypertension (3) Morbid obesity: Status: Acute Code(s): E66.01 - Morbid (severe) obesity due to excess calories (4) Type 2 diabetes mellitus: Status: Acute Code(s): E11.9 - Type 2 diabetes mellitus without complications Medications at Discharge Home Medications clonidine HCl 0.1 mg PO DAILY 10/20/17 metformin 500 mg PO 4X/DAY 10/20/17 potassium chloride [K-Tab] 20 meq PO BID 10/20/17 pravastatin 20 mg PO DAILY 10/20/17 venlafaxine [Effexor XR] 75 mg PO DAILY 10/20/17 cholecalciferol (vitamin D3) [Vitamin D3] 125 mcg PO QMONTH 10/22/20 amlodipine 10 mg PO DAILY #30 tab 10/23/20 hydrochlorothiazide 25 mg PO DAILY #30 tab 10/23/20 prednisone 40 mg PO DAILY #10 tab 10/23/20 Hospital Course Summary of Care Provided Minutes Spent on Discharge: 35 Hospital Course: Disposition: Patient to be discharged home, no home health care needs or additional therapies identified. 1) angioedema Swollen tongue on admission. Tongue swelling has resolved and tongue is of normal size, throat and lips also appear of normal size. Likely related to jayden ent's prescription of lisinopril, which will be discontinued at discharge. Soft tissue neck CT demonstrated slight soft tissue fullness at the left piriform sinus and questionable fullness at the right side of the tongue. Patient was initiated on methylprednisolone, while lisinopril was withheld and tongue swelling did improve throughout admission. Plan; discontinue lisinopril/hydrochlorothiazide, initiate amlodipine and hydrochlorothiazide on discharge, prednisone 40 mg x 5 days, follow-up with primary care provider within the next 2 weeks, C1 esterase level pending 2) HTN Discontinue lisinopril/hydrochlorothiazide due to #1, initiate amlodipine and hydrochlorothiazide on discharge, continue clonidine. Patient seen by Omer Otero PA-C, under the supervision of Dr. Martinez. Physical Exam Narrative Patient is a 70-year-old female comfortably resting in bed, alert and oriented x3. Tongue and throat swelling have improved from admission. Denies chest pain, shortness of breath, palpitations, hemoptysis, sputum production, fever, chills, N/V/D. Const alert, oriented x3 and no apparent distress HEENT normocephalic, head/scalp atraumatic and hearing grossly normal bilaterally Eyes PERRL, EOMs intact bilaterally and conjunctivae normal Neck no lymphadenopathy, supple and no JVD Resp normal respiratory effort, no retractions and no use of accessory muscles Cardio regular rate, regular rhythm, no murmurs and no JVD GI normal to inspection, nondistended, normoactive bowel sounds and soft to palpation Extremity normal to inspection, full ROM and no clubbing, cyanosis or edema Skin no rashes or lesions noted and no wounds Neuro CN's II-XII intact bilaterally Psych affect normal Weight / BMI Weight Weight: 212 lb 8.41 oz Body Mass Index (BMI) 38.8 ABG / Lab / Microbiology Data Result Diagrams: 10/23/20 05:44 10/23/20 05:44 Laboratory: Laboratory Results - last 24 hr 10/22/20 18:50: WBC 8.6, RBC 4.65, Hgb 13.3, Hct 42.1, MCV 90.5, MCH 28.6, MCHC 31.6 L, RDW Std Deviation 44.6 H, RDW Coeff of Leonora 13.5, Plt Count 320, MPV 10.0, Immature Gran % (Auto) 0.500, Neut % (Auto) 55.0, Lymph % (Auto) 31.4, [place] % (Auto) 9.7, Eos % (Auto) 2.6, Baso % (Auto) 0.8, Absolute Neuts (auto) 4.7, Absolute Lymphs (auto) 2.70, Nucleated RBC % 0 10/22/20 18:50: Sodium 138, Potassium 4.0, Chloride 105, Carbon Dioxide 26.0, Anion Gap 7, BUN 18, Creatinine 0.86, Estim Creat Clear Calc 49.63, Est GFR (MDRD) Af Amer 83, Est GFR (MDRD) Non-Af 69, BUN/Creatinine Ratio 20.8 H, Glucose 158 H, Calcium 9.0 10/22/20 22:31: POC Glucose 240 H 10/23/20 05:44: WBC 11.1 H, RBC 4.68, Hgb 13.5, Hct 42.6, MCV 91.0, MCH 28.8, MCHC 31.7 L, RDW Std Deviation 44.1 H, RDW Coeff of Leonora 13.2, Plt Count 299, MPV 9.9, Immature Gran % (Auto) 0.700, Neut % (Auto) 88.8 H, Lymph % (Auto) 9.0 L, [place] % (Auto) 1.2, Eos % (Auto) 0.0, Baso % (Auto) 0.3, Absolute Neuts (auto) 9.9 H, Absolute Lymphs (auto) 1.00, Nucleated RBC % 0 10/23/20 05:44: Sodium 136, Potassium 4.1, Chloride 103, Carbon Dioxide 24.0, Anion Gap 9, BUN 17, Creatinine 0.89, Estim Creat Clear Calc 45.85, Est GFR (MDRD) Af Amer 80, Est GFR (MDRD) Non-Af 67, BUN/Creatinine Ratio 19.1, Glucose 245 H, Calcium 9.0, Total Bilirubin 0.50, AST 12 L, ALT 19, Alkaline Phosphatase 64, Total Protein 7.1, Albumin 3.2, Globulin 3.9, Albumin/Globulin Ratio 0.8 L 10/23/20 06:59: POC Glucose 256 H 10/23/20 11:27: POC Glucose 249 H Radiography Diagnostic Testing: Radiology Impression Soft Tissue Neck CT 10/22/20 20:37 IMPRESSION: There is subcutaneous edema around the submandibular glands, left more than right. Slight soft tissue fullness at the left piriform sinus. There is questionable fullness at the right side of the tongue base with slight asymmetric hypoattenuation, Image 42 series 2. A collection cannot be excluded. Electronically Signed: Damon Campos DO at 23:49 EDT Tel [phone], Service support , D/C Instructions Discharge Diet: No restrictions Weight Bearing Status: Weight bearing as tolerated Call your doctor if you observe: Fever of 101 or Higher, Numbness or Tingling, Shortness of breath, Dizziness, Chest pain, Increased palpitations (irregular heartbeat) and Calf discomfort Please Follow Up With: Primary care provider When: Within the next two weeks. Meaningful Use Info Meaningful Use Diagnoses (Choose all that apply): None applicable Discharge Plan Admission Admit Date/Time: 10/22/20 20:38 Primary Reason for Your Visit: Angioedema Attending Provider: Tushar Martinez Primary Care Provider: Dejuan Chavez Discharge Orders/Prescriptions Prescriptions: New amlodipine 10 mg Tablet 10 mg PO DAILY Qty: 30 RF: 0 hydrochlorothiazide 25 mg Tablet 25 mg PO DAILY Qty: 30 RF: 0 prednisone 20 mg tablet 40 mg PO DAILY Qty: 10 RF: 0 Continued clonidine HCl 0.1 MG tablet 0.1 mg PO DAILY RF: 0 venlafaxine [Effexor XR] 75 MG capsule,extended release 24hr 75 mg PO DAILY RF: 0 pravastatin 20 MG tablet 20 mg PO DAILY RF: 0 metformin 500 MG tablet,ER ethan.retention 24 hr 500 mg PO 4X/DAY RF: 0 potassium chloride [K-Tab] 20 MEQ tablet extended release 20 meq PO BID RF: 0 cholecalciferol (vitamin D3) [Vitamin D3] 125 mcg (5,000 unit) Tablet 125 mcg PO QMONTH RF: 0 Discontinued lisinopril-hydrochlorothiazide 20-12.5 mg tablet 1 tab PO DAILY RF: 0 Referrals / Follow Up: Dejuan Chavez DO [Primary Care Provider] - Within 2 Weeks Disposition Disposition (needs filled in before D/C Order can be placed): Home, Self Care Documented by User: Dr. Tushar Martinez DO 10/23/20 14:25 Providers Date of Admission: 10/22/20 Reason For Visit: ANGIOEDEMA Medications at Discharge Home Medications clonidine HCl 0.1 mg PO DAILY 10/20/17 metformin 500 mg PO 4X/DAY 08/05/18 potassium chloride [K-Tab] 20 meq PO BID 10/20/17 pravastatin 20 mg PO DAILY 10/20/17 venlafaxine [Effexor XR] 75 mg PO DAILY 10/20/17 cholecalciferol (vitamin D3) [Vitamin D3] 125 mcg PO QMONTH 10/22/20 amlodipine 10 mg PO DAILY #30 tab 10/23/20 hydrochlorothiazide 25 mg PO DAILY #30 tab 10/23/20 prednisone 40 mg PO DAILY #10 tab 10/23/20 ABG / Lab / Microbiology Data Result Diagrams: 10/23/20 05:44 10/23/20 05:44 Discharge Plan Admission Admit Date/Time: 10/22/20 20:38 Primary Reason for Your Visit: Angioedema Attending Provider: Tushar Martinez Primary Care Provider: Dejuan Chavez Discharge Orders/Prescriptions Prescriptions: New amlodipine 10 mg Tablet 10 mg PO DAILY Qty: 30 RF: 0 hydrochlorothiazide 25 mg Tablet 25 mg PO DAILY Qty: 30 RF: 0 prednisone 20 mg tablet 40 mg PO DAILY Qty: 10 RF: 0 Continued clonidine HCl 0.1 MG tablet 0.1 mg PO DAILY RF: 0 venlafaxine [Effexor XR] 75 MG capsule,extended release 24hr 75 mg PO DAILY RF: 0 pravastatin 20 MG tablet 20 mg PO DAILY RF: 0 metformin 500 MG tablet,ER ethan.retention 24 hr 500 mg PO 4X/DAY RF: 0 potassium chloride [K-Tab] 20 MEQ tablet extended release 20 meq PO BID RF: 0 cholecalciferol (vitamin D3) [Vitamin D3] 125 mcg (5,000 unit) Tablet 125 mcg PO QMONTH RF: 0 Discontinued lisinopril-hydrochlorothiazide 20-12.5 mg tablet 1 tab PO DAILY RF: 0 Referrals / Follow Up: Djeuan Chavez DO [Primary Care Provider] - Within 2 Weeks Disposition Disposition (needs filled in before D/C Order can be placed): Home, Self Care Charges/Coding Addendum Addendum: Patient seen and examined independently. Data and vitals reviewed. I agree with the above note by the physician assistant press operator offset. Patient had been having issues in regards to some swelling left side of her tongue but never sought attention for that. Developed into profound swelling and trismus when she presented. Patient received methylprednisolone, diphenhydramine and the swelling has completely resolved. Patient developed angioedema due to RONI inhibitor. On exam, patient oropharynx is normal. Patient has no swelling of her tongue and able see the posterior pharynx. Assessment and plan 1. Angioedema Secondary to lisinopril. Patient advised to discontinue the lisinopril pill. Patient advised never to take RONI inhibitor's nor angiotensin receptor blockers in the future. 2. Hypertension: Patient on amlodipine and HCTZ. Follow-up with PCP for furthe r adjustments antihypertensives as necessary. Visit Charges OBSV E&M: [id number] Observation care discharge
[2020-10-27 13:31] LABS: C1 Esterase Inhibitor, Quant 41 mg/dL (21-39)
== END 2020-10-23 11:39 | disposition home or self-care (01) ==
LOC: ED 20:17 → PCU 21:27
PROVIDERS: Admitting Provider Internal Medicine; Emergency Provider Emergency Medicine; PCP Family Medicine
DX: T78.3XXA Angioneurotic edema, initial encounter (principal); I10 Essential (primary) hypertension; E11.9 Type 2 diabetes mellitus without complications; F32.9 Major depressive disorder, single episode, unspecified; Z79.899 Other long term (current) drug therapy; Z79.84 Long term (current) use of oral hypoglycemic drugs; E66.01 Morbid (severe) obesity due to excess calories; F41.9 Anxiety disorder, unspecified; Z68.38 Body mass index [BMI] 38.0-38.9, adult
CPT/HCPCS: 36415; 70491; 80048; 80053; 82962; 85025; 86160; 96365; 96372; 96375; 96376; 99218; 99285; Q9967; A4216; G0378; J3490

== ENCOUNTER 2020-12-08 10:33 | Emergency (ER) | payer MEDICARE, OTHER, SELFPAY ==
[2020-12-08] VITALS (7 sets, daily range): BP systolic 124–163; BP diastolic 74–101; PULSE 70–84; RESP 12–18; TEMP 35.8; O2SAT 92–97; BMI 36.8
--- NOTE | 2020-12-08 10:54 | EDS_ITS ---
HPI History of Present Illness Chief Complaint: Allergic Reaction Informant: patient Onset/Context/Timing Onset: Today (2 hrs ago) Context: Gradual Onset Timing: Continuous Quality: Swollen tongue Location: Tongue only Current Severity: Moderate Maximum Severity: Moderate Worsened by: Nothing Relieved by: Nothing. Tried Benadryl 50 mg prior to arrival. Associated Symptoms Associated Symptoms: None Narrative Narrative: Patient states she woke up this morning without swelling, but then it started several minutes afterwards, prior to doing anything other than simply getting out. She had nothing to eat or drink prior to this. She states it has progressed somewhat despite taking Benadryl so she presents here. This is similar to what happened when she was on lisinopril in the past, she recently was started on amlodipine and HCTZ as replaced medications for her blood pressure 1 month ago. Nothing else is changed. She denies any known food allergies. At this time she denies having any trouble swallowing or trouble breathing, she was able to swallow her pills despite the swelling. She denies any recent illness. No sore throat or pain in her mouth. She has had some mild swelling in both of her ankles since starting the new medications 1 month ago, but nothing new or acute or different. No lightheadedness, palpitations, chest pain, shortness of breath. [facility] Medical History BiPAP (biphasic positive airway pressure) dependence Depression Diabetes GERD (gastroesophageal reflux disease) Hypertension Hypertension Hypertension Morbid obesity Non-smoker Sleep apnea Type 2 diabetes mellitus Home Medications clonidine HCl 0.1 mg PO DAILY 10/20/17 [History Last Taken 10/21/20] metformin 500 mg PO 4X/DAY 10/20/17 [History Last Taken 10/22/20] potassium chloride [K-Tab] 20 meq PO BID 10/20/17 [History Last Taken 10/22/20 10:00] pravastatin 20 mg PO DAILY 10/20/17 [History Last Taken 10/21/20] venlafaxine [Effexor XR] 75 mg PO DAILY 10/20/17 [History Last Taken 10/22/20] cholecalciferol (vitamin D3) [Vitamin D3] 125 mcg PO QMONTH 10/22/20 [History Last Taken 10/17/20] amlodipine 10 mg PO DAILY #30 tab 10/23/20 [Rx Last Taken Unknown] hydrochlorothiazide 25 mg PO DAILY #30 tab 10/23/20 [Rx Last Taken Unknown] prednisone 40 mg PO DAILY #6 tab 12/08/20 [Rx Last Taken Unknown] Allergy/AdvReac Type Severity Reaction Status Date / Time lisinopril Allergy Angioedema Verified 12/08/20 10:35 Surgical History History of appendectomy History of cholecystectomy Social History Smoking Status: Never smoker ROS ROS ED Constitutional Constitutional ED: Denies chills or fever(s) Eyes Eyes: Denies change in vision or diplopia ENT ENT ED: Reports tongue swelling; Denies lip swelling, loss taste/smell, rhinorrhea or sore throat Cardiovascular Cardiovascular: Denies chest pain or palpitations Respiratory/Chest Respiratory/Chest: Denies cough or dyspnea Gastrointestinal Gastrointestinal: Denies abdominal pain, diarrhea, nausea or vomiting Genitourinary Genitourinary ED: Denies dysuria or hematuria Musculoskeletal Musculoskeletal: Denies back pain or neck pain Integumentary Denies abscess or rash Neurologic Neurologic: Denies headache(s), paresthesias or weakness Psychiatric Psychiatric: Denies anxiety or suicidal thoughts EXAM Physical Exam Const Vital Signs: 12/08/20 10:33 12/08/20 11:43 12/08/20 12:09 Temperature 96.4 F L Temperature Source Temporal Pulse Rate 84 70 70 Respiratory Rate 16 12 12 Blood Pressure 163/101 H 135/82 H 124/74 H Blood Pressure Mean 121 99 90 Pulse Ox 97 94 96 Oxygen Delivery Method Room Air 12/08/20 13:09 12/08/20 13:26 12/08/20 14:41 Temperature Temperature Source Pulse Rate 72 74 77 Respiratory Rate 12 14 16 Blood Pressure 135/84 H 135/77 H 148/78 H Blood Pressure Mean 101 96 101 Pulse Ox 94 92 Oxygen Delivery Method Room Air Room Air 12/08/20 15:08 Temperature Temperature Source Pulse Rate 75 Respiratory Rate 18 Blood Pressure 140/84 H Blood Pressure Mean 102 Pulse Ox 93 Oxygen Delivery Method Room Air Positive well nourished and well developed General Appearance ED: well developed and NAD HEENT Reports moist mucous membranes HEENT Narrative: Mildly garbled voice but able to understand the patient without difficulty. No stridor. No difficulty breathing. Diffusely mildly swollen tongue. Not able to see posterior oropharynx and patient opens mouth. No trismus. normocephalic and atraumatic Eyes PERRL and EOMs intact bilaterally Neck full ROM and supple Resp normal respiratory effort and clear to auscultation bilaterally Cardio regular rate, regular rhythm and no murmurs Rate: Negative for tachycardic GI non-tender and non-distended Auscultation: normoactive bowel sounds Palpation: soft Back/Spine no CVA tenderness General Back: other FROM Extremity normal to inspection General Extremety ED: Yes edema; Negative for pulses abnormal or tenderness General Extremity: edema bilateral lower extremity Details: mild (Nonpitting); Negative for pulses abnormal Neuro oriented x3, CN's II-XII intact bilaterally and no sensory deficits noted Sensorium / Orientation: awake and alert Motor Exam: strength 5/5 throughout Skin no rashes or lesions noted and no wounds MDM MDM MDM Narrative Medical decision making narrative: Patient was given Solu-Medrol 125 IV, she had already taken Benadryl, she was observed. After couple hours she did not notice a big difference so I continue to observe her because it was unclear whether she needed to be admitted or not, and it is morning so I thought it was reasonable to observe her. After 4-5 hours, she is feeling it is better and her voice is back to normal. Objectively her tongue is less edematous and it does not look swollen to me now compared to earlier. She is comfortable going home and I am comfortable allowing her. The etiology of this is unknown. She is asking about an EpiPen, I am not sure that will be of value. If he gets worse she just needs to return to the ER immediately. I think putting her on a few days of prednisone is reasonable, and at this time since I do not know the cause I would have her stop the new medications and ask her doctor about replacements or whether to continue them or not. I think they are less likely the cause, but they are the only thing that is different. Lab Data Attestation: I reviewed the patient's lab results. Labs: Laboratory Results - last 24 hr 12/08/20 12/08/20 10:55 10:55 WBC 8.1 RBC 4.75 Hgb 13.7 Hct 42.1 MCV 88.6 MCH 28.8 MCHC 32.5 RDW Std Deviation 42.9 RDW Coeff of Leonora 13.2 Plt Count 341 MPV 9.3 Immature Gran % (Auto) 0.500 Neut % (Auto) 63.1 Lymph % (Auto) 25.2 [place] % (Auto) 9.0 Eos % (Auto) 1.2 Baso % (Auto) 1.0 Absolute Neuts (auto) 5.1 Absolute Lymphs (auto) 2.05 Nucleated RBC % 0 Sodium 137 Potassium 3.5 Chloride 99 Carbon Dioxide 31.0 Anion Gap 7 BUN 18 Creatinine 0.90 Estim Creat Clear Calc 47.43 Est GFR (MDRD) Af Amer 79 Est GFR (MDRD) Non-Af 66 BUN/Creatinine Ratio 20.0 Glucose 202 H Calcium 9.3 Discharge Plan Triage Chief Complaint: Allergic Reaction ED Provider: Darwin Perkins Dx/Rx/DC Orders Clinical Impression: Angioneurotic edema Instructions: ED Angioedema Prescriptions: New prednisone 20 mg tablet 40 mg PO DAILY Qty: 6 RF: 0 Continued clonidine HCl 0.1 MG tablet 0.1 mg PO DAILY RF: 0 venlafaxine [Effexor XR] 75 MG capsule,extended release 24hr 75 mg PO DAILY RF: 0 pravastatin 20 MG tablet 20 mg PO DAILY RF: 0 metformin 500 MG tablet,ER ethan.retention 24 hr 500 mg PO 4X/DAY RF: 0 potassium chloride [K-Tab] 20 MEQ tablet extended release 20 meq PO BID RF: 0 cholecalciferol (vitamin D3) [Vitamin D3] 125 mcg (5,000 unit) Tablet 125 mcg PO QMONTH RF: 0 Held amlodipine 10 mg Tablet 10 mg PO DAILY Qty: 30 RF: 0 Hold Instructions: Hold until you discuss with your doctor hydrochlorothiazide 25 mg Tablet 25 mg PO DAILY Qty: 30 RF: 0 Hold Instructions: Hold until you discuss with your doctor Primary Care Provider: Dejuan Chavez Referrals: Dejuan Chavez DO [Primary Care Provider] - (Call for further instructions regarding your blood pressure medications) Disposition Disposition: Home, Self Care
[2020-12-08 11:02] LABS: Absolute Lymphocyte Count 2.05 X10^3/uL (0.83-4.51); Absolute Neutrophil Count 5.1 X10^3/uL (2.0-7.7); Basophil# 0.08 X10^3/uL; Eosinophils% 1.2 % (0-5); Hematocrit 42.1 % (37-47); Hemoglobin 13.7 g/dL (12.0-15.0); Lymphocyte # 2.05 X10^3/ul (0.83-4.51); Lymphocyte % 25.2 % (19-41); Mean Corp Hgb Conc 32.5 g/dL (32-36); Mean Corpuscular Hgb 28.8 pg (27.0-32.0); Mean Corpuscular Volume 88.6 fL (81-99); Mean Platelet Vol. 9.3 fl (6.2-12.0); Monocyte# 0.73 X10^3/uL; NRBC Flagged by Analyzer 0 % (0-5); Neutrophil # 5.13 X10^3/uL (2.7-7.7); Neutrophil % 63.1 % (47-70); Platelet Count 341 K/mm3 (150-450); RBC Distribution Width CV 13.2 % (11.6-14.6); RBC Distribution Width SD 42.9 fl (35.1-43.9); Red Blood Count 4.75 M/mm3 (4.2-5.4); White Blood Count 8.1 K/mm3 (4.4-11.0)
[2020-12-08] MEDS: MethylPREDNISolone 125 MG/2 ML Vial IV (11:04)
[2020-12-08 11:13] LABS: Anion Gap 7 (5-15); BUN 18 mg/dL (7-18); Calcium,Total 9.3 mg/dL (8.5-10.1); Chloride 99 mmol/L (98-107); EST Glomerular Filtration Rate 66 mL/min (>60); Est Glom Filt Rate - Afr Amer 79 mL/min (>60); Estimated Creatinine Clearance 47.43 ml/min; Glucose 202 mg/dL (74-106); Potassium 3.5 mmol/L (3.5-5.1); Sodium Level 137 mmol/L (136-145)
== END 2020-12-08 15:56 | disposition home or self-care (01) ==
PROVIDERS: Emergency Provider Emergency Medicine; PCP Family Medicine
DX: T78.3XXA Angioneurotic edema, initial encounter (principal); I10 Essential (primary) hypertension; E11.9 Type 2 diabetes mellitus without complications; K21.9 Gastro-esophageal reflux disease without esophagitis; G47.30 Sleep apnea, unspecified; F32.9 Major depressive disorder, single episode, unspecified; E66.01 Morbid (severe) obesity due to excess calories; Z79.84 Long term (current) use of oral hypoglycemic drugs; Z79.52 Long term (current) use of systemic steroids; Z79.899 Other long term (current) drug therapy
CPT/HCPCS: 80048; 85025; 96374; 99283; A4216

== ENCOUNTER → 2020-12-21 10:59 | Outpatient (CLI) | payer MEDICARE, OTHER, SELFPAY ==
[2020-12-25 00:07] LABS: Almond <0.10 kU/L (Class 0); Barley, Whole Grain <0.10 kU/L (Class 0); Beef <0.10 kU/L (Class 0); Carrot <0.10 kU/L (Class 0); Casein <0.10 kU/L (Class 0); Cashew <0.10 kU/L (Class 0); Chicken <0.10 kU/L (Class 0); Chocolate <0.10 kU/L (Class 0); Clam <0.10 kU/L (Class 0); Codfish <0.10 kU/L (Class 0); Corn <0.10 kU/L (Class 0); Crab <0.10 kU/L (Class 0); Egg, White <0.10 kU/L (Class 0); Egg, Whole <0.10 kU/L (Class 0); Egg, Yolk <0.10 kU/L (Class 0); Garlic <0.10 kU/L (Class 0); Gluten <0.10 kU/L (Class 0); Hazelnut/Filbert <0.10 kU/L (Class 0); Lobster <0.10 kU/L (Class 0); Milk (Cow) <0.10 kU/L (Class 0); Oat <0.10 kU/L (Class 0); Onion <0.10 kU/L (Class 0); Orange <0.10 kU/L (Class 0); Pea <0.10 kU/L (Class 0); Pecan <0.10 kU/L (Class 0); Pork <0.10 kU/L (Class 0); Potato, White <0.10 kU/L (Class 0); Rice <0.10 kU/L (Class 0); Rye <0.10 kU/L (Class 0); Salmon <0.10 kU/L (Class 0); Shrimp <0.10 kU/L (Class 0); Soybean <0.10 kU/L (Class 0); Strawberry <0.10 kU/L (Class 0); Tomato <0.10 kU/L (Class 0); Tuna <0.10 kU/L (Class 0); Walnut, (Food) <0.10 kU/L (Class 0); Wheat <0.10 kU/L (Class 0); Yeast <0.10 kU/L (Class 0)
[2020-12-25 08:38] LABS: Apple <0.10 kU/L (Class 0); Peanut <0.10 kU/L (Class 0)
[2020-12-27 16:09] LABS: Banana <0.10 kU/L (Class 0); Celery <0.10 kU/L (Class 0); Cheddar Cheese <0.10 kU/L (Class 0); Lettuce <0.10 kU/L (Class 0); Peach <0.10 kU/L (Class 0)
[2020-12-27 19:53] LABS: Lactalbumin, Alpha <0.10 kU/L (Class 0); Turkey <0.10 kU/L (Class 0)
== END ==
PROVIDERS: PCP Family Medicine; Referring Provider Family Medicine; Visit Provider Family Medicine
DX: T78.3XXA Angioneurotic edema, initial encounter (principal)
CPT/HCPCS: 36415; 86003

== ENCOUNTER → 2021-03-14 13:12 | Outpatient (CLI) | payer MEDICARE, OTHER, SELFPAY ==
--- NOTE | 2021-03-16 10:03 | PFT ---
INTRODUCTION: The patient is a 70-year-old female that presents for pulmonary function studies secondary to a diagnosis of dyspnea on exertion. Respiratory therapy reported good patient effort. Bronchodilators were used during testing. INTERPRETATION: Forced expiration spirometry demonstrates no evidence of a large airways obstructive ventilatory defect. There was no significant response to aerosolized bronchodilators. Spirograms are of good quality and plateau normally. The respiratory flow volume loop is normal. Body plethysmography was performed and reveals lung volumes to be within normal limits. Diffusing capacity by single breath CO is likewise within normal limits. IMPRESSION: Grossly normal pulmonary function studies.
== END ==
PROVIDERS: PCP Family Medicine; Referring Provider Family Medicine; Visit Provider Family Medicine
DX: R06.00 Dyspnea, unspecified (principal)
CPT/HCPCS: 94060; 94726; 94729

== ENCOUNTER 2021-04-01 18:14 | Emergency (ER) | payer MEDICARE, OTHER, SELFPAY ==
[2021-04-01 18:15] VITALS: BP 217/136; PULSE 86; RESP 15; TEMP 36.4; O2SAT 96; BMI 33.3
[2021-04-01 18:20] VITALS: BP 184/86
--- NOTE | 2021-04-01 18:20 | EX.ED.DYSGE1 ---
HPI History of Present Illness Chief Complaint: Allergic Reaction Informant: patient Narrative Narrative: 70-year-old female presenting to the emergency department with tongue swelling. Patient was noted to have angioedema in October and November of last year the first requiring a hospitalization. At that time she was on lisinopril and she has not been on it since. She has not seen an devops solutions architect. She states that the symptoms of tongue swelling and difficulty swallowing began approximately 1-1/2 hours prior to arrival. She took 2 [id number] Benadryl and unknown amount of prednisone. She states that this is not helped her so she came to emergency. [facility] Medical History BiPAP (biphasic positive airway pressure) dependence Depression Diabetes GERD (gastroesophageal reflux disease) Hypertension Hypertension Hypertension Morbid obesity Non-smoker Sleep apnea Type 2 diabetes mellitus Home Medications clonidine HCl 0.1 mg PO BID 10/20/17 [History Last Taken 10/21/20] metformin 1,000 mg PO BID 10/20/17 [History Last Taken 10/22/20] potassium chloride [K-Tab] 20 meq PO DAILY 10/20/17 [History Last Taken 10/22/20 10:00] pravastatin 20 mg PO DAILY 10/20/17 [History Last Taken 10/21/20] venlafaxine [Effexor XR] 75 mg PO DAILY 10/20/17 [History Last Taken 10/22/20] cholecalciferol (vitamin D3) [Vitamin D3] 125 mcg PO QMONTH 10/22/20 [History Last Taken 10/17/20] hydrochlorothiazide 25 mg PO DAILY #30 tab 10/23/20 [Rx Last Taken Unknown] prednisone 40 mg PO DAILY PRN 04/01/21 [History Last Taken Unknown] prednisone 50 mg PO DAILY #5 tab 04/01/21 [Rx Last Taken Unknown] Allergy/AdvReac Type Severity Reaction Status Date / Time lisinopril Allergy Angioedema Verified 04/01/21 18:15 Surgical History History of appendectomy History of cholecystectomy Social History Smoking Status: Never smoker ROS ROS ED Constitutional Constitutional ED: Denies chills, fever(s) or weight loss Eyes Eyes: Denies change in vision or diplopia ENT ENT ED: Reports other Details: See history of present illness ; Denies ear pain, rhinorrhea or sore throat Cardiovascular Cardiovascular: Denies chest pain, orthopnea, palpitations or racing heartbeat Respiratory/Chest Respiratory/Chest: Denies cough, dyspnea or orthopnea Gastrointestinal Gastrointestinal: Denies abdominal pain, diarrhea, nausea or vomiting Genitourinary Genitourinary ED: Denies dysuria, hematuria or urinary frequency Musculoskeletal Musculoskeletal: Denies arthralgias or myalgias Integumentary Denies abscess or rash Neurologic Neurologic: Denies headache(s) or weakness Psychiatric Psychiatric: Denies anxiety, depression, suicidal ideation or suicidal thoughts Endocrine Endocrinology: Denies polydipsia, polyphagia or polyuria Allergic/Immunologic Allergic/Immunologic ED: Denies mouth swelling, tongue swelling or urticaria EXAM Physical Exam Const Vital Signs: 04/01/21 18:15 04/01/21 18:20 04/01/21 20:04 Temperature 97.6 F L Temperature Source Temporal Pulse Rate 86 78 Respiratory Rate 15 17 Blood Pressure 217/136 H 184/86 H 192/119 H Blood Pressure Mean 163 118 143 Pulse Ox 96 98 Oxygen Delivery Method Room Air Room Air 04/01/21 20:39 Temperature Temperature Source Pulse Rate 74 Respiratory Rate 16 Blood Pressure 186/115 H Blood Pressure Mean 138 Pulse Ox Oxygen Delivery Method Positive well nourished, well developed and obese General Appearance ED: well developed Nutritional Appearance: obese HEENT Reports normocephalic, head/scalp atraumatic, TM's clear and moist mucous membranes HEENT Narrative: There is tongue swelling left side greater than right. There is no significant lip swelling. She is not drooling. Her voice is slightly muffled. There is no stridor. Negative for trauma Tympanic Membrane ED: Yes TM's clear Eyes PERRL and EOMs intact bilaterally Neck no lymphadenopathy, supple and no JVD Resp normal respiratory effort and clear to auscultation bilaterally Cardio regular rate, regular rhythm and no murmurs GI normal to inspection, nondistended, normoactive bowel sounds and non-tender Palpation: soft Back/Spine no CVA tenderness and normal ROM Extremity normal to inspection General Extremety ED: Negative for edema General Extremity: Negative for edema Neuro oriented x3 and CN's II-XII intact bilaterally Sensorium / Orientation: alert Motor Exam: strength 5/5 throughout Psych mental status grossly normal Mood & Affect: Negative for depressed or tearful Skin no rashes or lesions noted and no wounds MDM MDM MDM Narrative Medical decision making narrative: Patient was observed for 4 hours. She received Benadryl Pepcid and Solu-Medrol. She also needed her dosing of clonidine and HCTZ. Patient was observed and her tongue swelling is significantly improved. At this point patient be discharged home. I have asked that she follow-up with her primary care or with an computer equipment installer. She notes return instructions. Lab Data Attestation: I reviewed the patient's lab results. Labs: Laboratory Results - last 24 hr 04/01/21 04/01/21 18:17 18:17 WBC 11.6 H RBC 4.94 Hgb 14.3 Hct 43.0 MCV 87.0 MCH 28.9 MCHC 33.3 RDW Std Deviation 42.1 RDW Coeff of Leonora 13.3 Plt Count 325 MPV 9.8 Immature Gran % (Auto) 0.300 Neut % (Auto) 66.6 Lymph % (Auto) 23.1 [place] % (Auto) 7.6 Eos % (Auto) 1.6 Baso % (Auto) 0.8 Absolute Neuts (auto) 7.8 H Absolute Lymphs (auto) 2.69 Nucleated RBC % 0 Sodium 138 Potassium 4.0 Chloride 103 Carbon Dioxide 28.0 Anion Gap 7 BUN 24 H Creatinine 1.06 H Estim Creat Clear Calc 45.57 Est GFR (MDRD) Af Amer 66 Est GFR (MDRD) Non-Af 54 L BUN/Creatinine Ratio 22.6 H Glucose 215 H Calcium 9.3 Total Bilirubin 0.30 AST 10 L ALT 18 Alkaline Phosphatase 68 Total Protein 7.6 Albumin 3.6 Globulin 4.0 Albumin/Globulin Ratio 0.9 Discharge Plan Triage Chief Complaint: Allergic Reaction ED Provider: Jake Atkins Dx/Rx/DC Orders Clinical Impression: Angioneurotic edema Instructions: ED Angioedema Prescriptions: New prednisone 50 mg tablet 50 mg PO DAILY Qty: 5 RF: 0 No Action clonidine HCl 0.1 MG tablet 0.1 mg PO BID RF: 0 venlafaxine [Effexor XR] 75 MG capsule,extended release 24hr 75 mg PO DAILY RF: 0 pravastatin 20 MG tablet 20 mg PO DAILY RF: 0 metformin 500 MG tablet,ER ethan.retention 24 hr 1,000 mg PO BID RF: 0 potassium chloride [K-Tab] 20 MEQ tablet extended release 20 meq PO DAILY RF: 0 cholecalciferol (vitamin D3) [Vitamin D3] 125 mcg (5,000 unit) Tablet 125 mcg PO QMONTH RF: 0 hydrochlorothiazide 25 mg Tablet 25 mg PO DAILY Qty: 30 RF: 0 Hold Instructions: Hold until you discuss with your doctor prednisone 20 mg tablet 40 mg PO DAILY PRN (Reason: swelling) RF: 0 Primary Care Provider: Dejuan Chavez Referrals: Dejuan Chavez, [Primary Care Provider] - As soon as possible Activity Restrictions/Additional Instructions: I would strongly advise you to have an evaluation from an computer equipment installer. Please continue Benadryl every 6 hours. Prednisone daily as directed Disposition Disposition: Home, Self Care
[2021-04-01 18:24] LABS: Absolute Lymphocyte Count 2.69 X10^3/uL (0.83-4.51); Absolute Neutrophil Count 7.8 X10^3/uL (2.0-7.7); Basophil# 0.09 X10^3/uL; Basophil% 0.8 % (0-1); Eosinophil# 0.19 X10^3/uL; Eosinophils% 1.6 % (0-5); Hemoglobin 14.3 g/dL (12.0-15.0); Lymphocyte # 2.69 X10^3/ul (0.83-4.51); Lymphocyte % 23.1 % (19-41); Mean Corp Hgb Conc 33.3 g/dL (32-36); Mean Corpuscular Hgb 28.9 pg (27.0-32.0); Mean Platelet Vol. 9.8 fl (6.2-12.0); Monocyte# 0.89 X10^3/uL; Monocyte% 7.6 % (0-10); NRBC Flagged by Analyzer 0 % (0-5); Neutrophil # 7.75 X10^3/uL (2.7-7.7); Neutrophil % 66.6 % (47-70); Platelet Count 325 K/mm3 (150-450); RBC Distribution Width CV 13.3 % (11.6-14.6); RBC Distribution Width SD 42.1 fl (35.1-43.9); Red Blood Count 4.94 M/mm3 (4.2-5.4); White Blood Count 11.6 K/mm3 (4.4-11.0)
[2021-04-01] MEDS: DiphenhydrAMINE 50 MG/ML Syringe 25 MG IV (18:25)
[2021-04-01] MEDS: MethylPREDNISolone 125 MG/2 ML Vial IV (18:27)
[2021-04-01] MEDS: Famotidine 200 MG/20 ML MDV 20 MG in 0.9% Normal Saline (Pres. free 8 ML 300 MG IV (18:28)
[2021-04-01 18:48] LABS: ALB/GLOB Ratio 0.9 RATIO (0.9-2.4); AST(SGOT) 10 U/L (15-37); Alanine Aminotransfer ALT/SGPT 18 U/L (13-56); Albumin, Serum 3.6 g/dL (3.2-5.0); Alkaline Phosphatase 68 U/L (45-117); Anion Gap 7 (5-15); BUN 24 mg/dL (7-18); BUN/Creat Ratio 22.6 RATIO (10-20); Calcium,Total 9.3 mg/dL (8.5-10.1); Chloride 103 mmol/L (98-107); Creatinine, Serum 1.06 mg/dL (0.55-1.02); EST Glomerular Filtration Rate 54 mL/min (>60); Est Glom Filt Rate - Afr Amer 66 mL/min (>60); Estimated Creatinine Clearance 45.57 ml/min; Glucose 215 mg/dL (74-106); Protein, Total 7.6 g/dL (6.4-8.2); Sodium Level 138 mmol/L (136-145)
[2021-04-01 20:04] VITALS: BP 192/119; PULSE 78; RESP 17; O2SAT 98
[2021-04-01] MEDS: hydroCHLOROthiazide 25 MG Tablet PO (20:20)
[2021-04-01] MEDS: cloNIDine HCl 0.1 MG Tablet PO (20:20)
[2021-04-01 20:39] VITALS: BP 186/115; PULSE 74; RESP 16
[2021-04-01 21:48] VITALS: BP 168/95; PULSE 70; RESP 18; O2SAT 95
== END 2021-04-01 21:49 | disposition home or self-care (01) ==
PROVIDERS: Emergency Provider Emergency Medicine; PCP Family Medicine; Visit Provider Emergency Medicine
DX: T78.3XXA Angioneurotic edema, initial encounter (principal); E66.01 Morbid (severe) obesity due to excess calories; E11.9 Type 2 diabetes mellitus without complications; X58.XXXA Exposure to other specified factors, initial encounter; I10 Essential (primary) hypertension; F32.A Depression, unspecified; Z68.33 Body mass index [BMI] 33.0-33.9, adult; Z79.84 Long term (current) use of oral hypoglycemic drugs; Z79.899 Other long term (current) drug therapy
CPT/HCPCS: 80053; 85025; 96365; 96366; 99284; A4216; J3490

== ENCOUNTER 2021-05-08 14:50 | Outpatient (CLI) | payer MEDICARE, OTHER, SELFPAY ==
--- NOTE | 2021-05-08 14:53 | BI_ITS ---
MAMMOGRAPHY - BILATERAL SCREENING REASON FOR EXAM: Female, 70 years old. Routine annual screening examination. PERTINENT HISTORY: Sister with breast cancer. Aunt with breast cancer. TECHNIQUE: Digital bilateral breast joaquín (3D mammographic acquisition) in the CC and MLO projections. 2-D mediolateral oblique (MLO) and craniocaudad (CC) views of both breasts were obtained. CAD: Full Field Digital Mammography with Computer Added Detection was performed. COMPARISON: Comparison is made with prior examination dated 04/06/2019. FINDINGS: Breast Composition: The breasts are almost entirely fatty. There are no dominant masses or suspicious calcifications. No other significant abnormalities are identified. There has been no significant change since the prior study. BI/SCRN MAMM (CAD)W/JOAQUÍN BILAT IMPRESSION: Stable bilateral screening mammogram. Yearly follow-up mammogram recommended. (A) ASSESSMENT CATEGORY: BIRADS Category 1: Negative. A letter regarding these results will be sent to the patient by the facility within 30 days. Approximately 10% of breast cancers are not detected by mammography. A normal mammogram should not delay biopsy of a clinically suspicious abnormality. [id number] Electronically Signed: Richard Doe MD at 15:46 EST ,
== END 2021-05-08 23:59 | disposition home or self-care (01) ==
LOC: OPBI 14:51
PROVIDERS: PCP Family Medicine; Referring Provider Family Medicine; Visit Provider Family Medicine
DX: Z12.31 Encounter for screening mammogram for malignant neoplasm of breast (principal); Z80.3 Family history of malignant neoplasm of breast
CPT/HCPCS: 77063; 77067

== ENCOUNTER 2021-05-22 13:19 | Outpatient (CLI) | payer MEDICARE, OTHER, SELFPAY ==
[2021-05-22 15:01] LABS: Absolute Lymphocyte Count 2.36 X10^3/uL (0.83-4.51); Absolute Neutrophil Count 5.3 X10^3/uL (2.0-7.7); Basophil# 0.08 X10^3/uL; Basophil% 0.9 % (0-1); Eosinophil# 0.27 X10^3/uL; Eosinophils% 3.1 % (0-5); Hematocrit 43.7 % (37-47); Hemoglobin 14.7 g/dL (12.0-15.0); Lymphocyte # 2.36 X10^3/ul (0.83-4.51); Lymphocyte % 27.3 % (19-41); Mean Corp Hgb Conc 33.6 g/dL (32-36); Mean Corpuscular Hgb 29.1 pg (27.0-32.0); Mean Corpuscular Volume 86.5 fL (81-99); Mean Platelet Vol. 11.1 fl (6.2-12.0); Monocyte# 0.66 X10^3/uL; Monocyte% 7.6 % (0-10); NRBC Flagged by Analyzer 0 % (0-5); Neutrophil # 5.26 X10^3/uL (2.7-7.7); Neutrophil % 60.8 % (47-70); Platelet Count 284 K/mm3 (150-450); RBC Distribution Width CV 13.7 % (11.6-14.6); RBC Distribution Width SD 42.6 fl (35.1-43.9); Red Blood Count 5.05 M/mm3 (4.2-5.4); White Blood Count 8.7 K/mm3 (4.4-11.0)
[2021-05-22 15:30] LABS: Vitamin D,25 Hydroxy 31.6 ng/mL
[2021-05-26 13:31] LABS: C1 EST Inhibitor, Functional >100 (.)
== END 2021-05-22 23:59 | disposition home or self-care (01) ==
LOC: LAB 13:21
PROVIDERS: PCP Family Medicine; Referring Provider Specialist; Visit Provider Specialist
DX: T78.3XXD Angioneurotic edema, subsequent encounter (principal); E55.9 Vitamin D deficiency, unspecified; X58.XXXD Exposure to other specified factors, subsequent encounter
CPT/HCPCS: 36415; 82306; 83520; 85025; 86160; 86161

== ENCOUNTER → 2021-08-21 | Outpatient (CLI) | payer MEDICARE, OTHER, SELFPAY ==
[2021-08-21 10:35] LABS: Erythrocyte Sedimentation Rate 12 mm/hr (0-30)
[2021-08-21 10:54] LABS: Microalbumin,Random Urine 20.9 mg/L (NO RANGE EST.); Microalbumin:Creatinine Ratio 8.3 mg/g CRE (<30 mg/g CRE)
[2021-08-21 10:59] LABS: Anion Gap 8 (5-15); BUN 22 mg/dL (7-18); BUN/Creat Ratio 26.9 RATIO (10-20); Calcium,Total 9.2 mg/dL (8.5-10.1); Chloride 103 mmol/L (98-107); Cholesterol 162 mg/dL (200); Creatinine, Serum 0.82 mg/dL (0.55-1.02); EST Glomerular Filtration Rate 73 mL/min (>60); Est Glom Filt Rate - Afr Amer 88 mL/min (>60); Glucose 179 mg/dL (74-106); High Density Lipoprotein 44 mg/dL; Potassium 3.8 mmol/L (3.5-5.1); Sodium Level 139 mmol/L (136-145); Triglycerides 130 mg/dL; Very Low Density Lipoprotein 26 mg/dL (5-40)
[2021-08-21 11:07] LABS: Hemoglobin A1c 7.6 % (3.8-5.6)
== END | disposition home or self-care (01) ==
LOC: LAB 09:17
PROVIDERS: PCP Family Medicine; Visit Provider Family Medicine
DX: E11.9 Type 2 diabetes mellitus without complications (principal); I10 Essential (primary) hypertension; R53.1 Weakness
CPT/HCPCS: 36415; 80048; 80061; 82043; 82570; 83036; 85652

== ENCOUNTER → 2021-08-28 | Outpatient (CLI) | payer MEDICARE, OTHER, SELFPAY ==
--- NOTE | 2021-08-28 08:01 | CT_ITS ---
STUDY: CT CHEST WITH CONTRAST REASON FOR EXAM: Female, 71 years old. DYSPNEA RADIATION DOSAGE (If Supplied By Facility): CTDIvol = ( 16.03 ) mGy, DLP = ( 525.49 ) mGycm. Individualized dose optimization techniques were used for this CT.? TECHNIQUE: 2.5 mm helical cuts were performed through the chest with 100 mL ISOVUE 300 contrast. MPR performed COMPARISON: None. FINDINGS: The lung windows show chronic interstitial changes in both lung camara with nonspecific pleural thickening and some subtle interstitial edema. There is no organized infiltrate or effusion. Soft tissue windows show normal-appearing thyroid gland. Scattered subcentimeter axillary and mediastinal lymph nodes. No pleural or pericardial effusions. Heart size is normal. No coronary artery calcifications noted. Bony structures show degenerative change. Limited cuts through the upper abdomen do not show a suspicious abnormality, there has been a previous cholecystectomy CT/Chest WITH Contrast IMPRESSION: Chronic interstitial changes in both lung camara with subtle interstitial edema. No organized infiltrate or effusion No calcified coronary vessels No suspicious adenopathy Degenerative bony changes Electronically Signed: El Wong MD at 10:34 EDT ,
== END | disposition home or self-care (01) ==
LOC: CT 08:00
PROVIDERS: PCP Family Medicine; Referring Provider Family Medicine; Visit Provider Family Medicine
DX: R06.09 Other forms of dyspnea (principal)
CPT/HCPCS: 71260; Q9967

== ENCOUNTER → 2021-09-14 | Outpatient (CLI) | payer MEDICARE, OTHER, SELFPAY ==
[2021-09-14 12:44] VITALS: PULSE 104; PULSE 116; PULSE 118; PULSE 119; PULSE 120; PULSE 83; PULSE 85; O2SAT 93; O2SAT 94; O2SAT 95; O2SAT 96; O2SAT 97
--- NOTE | 2021-09-14 12:48 | CPS ---
PATIENT DID NOT REQUEST ANY REST BREAKS DURING WALK TESTING. A BRIEF BREAK WAS TAKEN AT 2 MIN INTO TEST TO ASSESS PT'S HR/RHYTHM DUE TO SHARP INCREASE WHILE WALKING. PATIENT DID EXPERIENCE INCREASED WOB TESTING PROGRESSED, SP02 MAINTAINED ABOVE 88% AND HR REMAINED AROUND 120 FOR DURATION OF TESTING, WITH QUICK RETURN TO NORMAL RESTING HR AT CONCLUSION OF EXERCISE.
--- NOTE | 2021-09-15 06:59 | PCM.PSN.6M ---
PSN 6 Minute Walk Test 6 Minute Walk Test 6 Minute Walk Test: 6 Minute Walk Test PSN:6-Minute Walk Test Start: 09/14/21 12:44 Freq: Status: Active Protocol: RESP.6MINW Document 09/14/21 12:44 [facility] (Rec: 09/14/21 12:55 [facility] [id number]) 6 Minute Walk Test Date Performed 09/14/21 Time Performed 12:30 Height 5 ft 2 in Weight: 203 lb Weight in Pounds 203.[address]: Sriram Avalos Assistive device used: None Pre-test Oxygen Delivery Method Room Air Pulse Ox (%) 97 Pulse Rate (60-100 beats/min) 83 Dyspnea Elan Scale (0-10) 0 1st minute Oxygen Delivery Method Room Air Pulse Ox (%) 95 Pulse Rate (60-100 beats/min) 104 H Dyspnea Elan Scale (0-10) 2 Number of Rests Taken 0 Reported Symptoms Increased Work of Breathing 2nd minute Oxygen Delivery Method Room Air Pulse Ox (%) 94 Pulse Rate (60-100 beats/min) 120 H Dyspnea Elan Scale (0-10) 3 Number of Rests Taken 1 Reported Symptoms Increased Work of Breathing 3rd minute Oxygen Delivery Method Room Air Pulse Ox (%) 93 Pulse Rate (60-100 beats/min) 118 H Dyspnea Elan Scale (0-10) 5 Number of Rests Taken 0 Reported Symptoms Increased Work of Breathing 4th minute Oxygen Delivery Method Room Air Pulse Ox (%) 93 Pulse Rate (60-100 beats/min) 116 H Dyspnea Elan Scale (0-10) 4 Number of Rests Taken 0 Reported Symptoms Increased Work of Breathing 5th minute Oxygen Delivery Method Room Air Pulse Ox (%) 93 Pulse Rate (60-100 beats/min) 119 H Dyspnea Elan Scale (0-10) 4 Number of Rests Taken 0 Reported Symptoms Increased Work of Breathing 6th minute Oxygen Delivery Method Room Air Pulse Ox (%) 93 Pulse Rate (60-100 beats/min) 120 H Dyspnea Elan Scale (0-10) 5 Number of Rests Taken 0 Reported Symptoms Increased Work of Breathing Post-test Oxygen Delivery Method Room Air Pulse Ox (%) 96 Pulse Rate (60-100 beats/min) 85 Dyspnea Elan Scale (0-10) 0 Full Laps Walked 15 Partial Lap, Number of Tiles Walked 36 Total Distance Walked (ft) 921 09/14/21 12:48 Cardiopulmonary Services by Lauren Durand PATIENT DID NOT REQUEST ANY REST BREAKS DURING WALK TESTING. A BRIEF BREAK WAS TAKEN AT 2 MIN INTO TEST TO ASSESS PT'S HR/RHYTHM DUE TO SHARP INCREASE WHILE WALKING. PATIENT DID EXPERIENCE INCREASED WOB TESTING PROGRESSED, SP02 MAINTAINED ABOVE 88% AND HR REMAINED AROUND 120 FOR DURATION OF TESTING, WITH QUICK RETURN TO NORMAL RESTING HR AT CONCLUSION OF EXERCISE. Initialized on 09/14/21 12:48 - END OF NOTE Interpretation Interpretation: The patient ambulated 921 feet over the course of 6 minutes beginning on room air without assistive devices. Pretesting oxygen saturation was noted to be 97% on room air. With ambulation, the nitin oxygen saturation was 93%. There was no significant exertional oxygen desaturation. Recommendations Recommendations: There is no indication for the use of supplemental oxygen at this time.
== END | disposition home or self-care (01) ==
LOC: PSN 12:06
PROVIDERS: PCP Family Medicine; Referring Provider Internal Medicine Critical Care Medicine; Visit Provider Internal Medicine Critical Care Medicine
DX: R06.02 Shortness of breath (principal)
CPT/HCPCS: 94618

== ENCOUNTER 2021-11-01 10:55 | Outpatient (CLI) | payer MEDICARE, OTHER, SELFPAY ==
[2021-11-01 11:23] LABS: Absolute Lymphocyte Count 2.46 X10^3/uL (0.83-4.51); Absolute Neutrophil Count 5.5 X10^3/uL (2.0-7.7); Basophil# 0.09 X10^3/uL; Eosinophil# 0.23 X10^3/uL; Eosinophils% 2.5 % (0-5); Hematocrit 41.8 % (37-47); Hemoglobin 14.5 g/dL (12.0-15.0); Lymphocyte # 2.46 X10^3/ul (0.83-4.51); Lymphocyte % 27.1 % (19-41); Mean Corp Hgb Conc 34.7 g/dL (32-36); Mean Corpuscular Hgb 30.1 pg (27.0-32.0); Mean Corpuscular Volume 86.9 fL (81-99); Mean Platelet Vol. 9.5 fl (6.2-12.0); Monocyte% 8.8 % (0-10); NRBC Flagged by Analyzer 0 % (0-5); Neutrophil # 5.46 X10^3/uL (2.7-7.7); Neutrophil % 60.3 % (47-70); Platelet Count 313 K/mm3 (150-450); RBC Distribution Width CV 13.2 % (11.6-14.6); RBC Distribution Width SD 41.7 fl (35.1-43.9); Red Blood Count 4.81 M/mm3 (4.2-5.4); White Blood Count 9.1 K/mm3 (4.4-11.0)
[2021-11-01 11:51] LABS: ALB/GLOB Ratio 0.9 RATIO (0.9-2.4); AST(SGOT) 12 U/L (15-37); Alanine Aminotransfer ALT/SGPT 21 U/L (13-56); Albumin, Serum 3.6 g/dL (3.2-5.0); Alkaline Phosphatase 57 U/L (45-117); Amylase 40 U/L (25-115); Anion Gap 6 (5-15); BUN 20 mg/dL (7-18); BUN/Creat Ratio 21.8 RATIO (10-20); CRP 9.39 mg/L (0.0-3.0); Chloride 100 mmol/L (98-107); Creatinine, Serum 0.92 mg/dL (0.55-1.02); EST Glomerular Filtration Rate 64 mL/min (>60); Est Glom Filt Rate - Afr Amer 77 mL/min (>60); Globulin 4.1 g/dL (2.2-4.2); Glucose 190 mg/dL (74-106); Lipase 227 U/L (73-393); Potassium 3.4 mmol/L (3.5-5.1); Protein, Total 7.7 g/dL (6.4-8.2); Sodium Level 138 mmol/L (136-145)
[2021-11-02 12:08] LABS: Anti-Centromere B Ab <0.2 AI (0.0-0.9); Anti-Chromatin <0.2 AI (0.0-0.9); Anti-Jo <0.2 AI (0.0-0.9); Anti-Scleroderma-70 AB <0.2 AI (0.0-0.9); RNP Ab <0.2 AI (0.0-0.9); SJOGREN'S Anti-SS-A test < 0.2 AI (0.0-0.9); SJOGREN'S Anti-SS-B test < 0.2 AI (0.0-0.9); Smith Ab <0.2 AI (0.0-0.9)
[2021-11-03 11:57] LABS: Anti-dsDNA Ab <1 IU/mL (0-9)
[2021-11-03 16:09] LABS: Cytoplasmic Ab (C-ANCA) <1:20 titer (Neg:<1:20); Endomysial Antibody IgA Negative (Negative); Immunoglobulin A 172 mg/dL (64-422)
[2021-11-04 14:27] LABS: Perinuclear Ab (P-ANCA) <1:20 titer (Neg:<1:20); t-Transglutaminase IgA <2 U/mL (0-3)
== END 2021-11-01 23:59 | disposition home or self-care (01) ==
PROVIDERS: PCP Family Medicine; Referring Provider Nurse Practitioner Adult Health; Visit Provider Nurse Practitioner Adult Health
DX: R19.7 Diarrhea, unspecified (principal); K58.9 Irritable bowel syndrome, unspecified
CPT/HCPCS: 36415; 80053; 82150; 82784; 83516; 83630; 83690; 85025; 86140; 86225; 86235; 86255; 86256; 87493; 87506

== ENCOUNTER → 2021-11-10 | Outpatient (CLI) | payer MEDICARE, OTHER, SELFPAY ==
--- NOTE | 2021-11-10 12:59 | CT_ITS ---
STUDY: CT ABDOMEN AND PELVIS WITH CONTRAST REASON FOR EXAM: Female, 71 years old. Lower abd pain, diarrhea -- oral and IV RADIATION DOSAGE (If Supplied By Facility): CTDIvol = ( 17.66 ) mGy, DLP = ( 1158.46 ) mGycm TECHNIQUE: Transaxial images were obtained from the dome of the diaphragm to the symphysis pubis with oral contrast. Oral and amp; IV Readi-CAT and amp; 100mL Isovue-300 was administered. Sagittal and coronal images were reconstructed. Individualized dose optimization techniques were used for this CT. COMPARISON: None. FINDINGS: The visualized lung bases are unremarkable. Coronary artery calcification. There is decreased attenuation of the liver consistent with steatosis. There are surgical clips in the gallbladder fossa consistent with a prior cholecystectomy. Normal spleen. There is diffuse atrophy of the pancreas. Normal bilateral adrenal glands. Normal right kidney. Normal left kidney. Normal visualized stomach. There is a 2.7 cm diverticulum in the second portion of the duodenum. There is evidence of inflammatory change and thickening of the transverse colon suggestive of a colitis. There are multiple colonic diverticula consistent with diverticulosis. The appendix is visualized and appears normal. Normal abdominal aorta. Normal inferior vena cava. Normal retroperitoneum. Normal urinary bladder. Small bilateral inguinal hernias larger on the left side. Disc space narrowing and disc degeneration at the L5-S1 level. CT/Abdomen/Pelvis WITH Contrast IMPRESSION: Findings suggestive of colitis of the transverse colon. Sigmoid diverticulosis. Diffuse fatty infiltration of the liver. Electronically Signed: Richard Doe MD at 14:42 EDT ,
== END | disposition home or self-care (01) ==
LOC: CT 12:54
PROVIDERS: PCP Family Medicine; Referring Provider Nurse Practitioner Adult Health; Visit Provider Nurse Practitioner Adult Health
DX: K76.0 Fatty (change of) liver, not elsewhere classified (principal); K57.30 Diverticulosis of large intestine without perforation or abscess without bleeding; R10.30 Lower abdominal pain, unspecified; R19.7 Diarrhea, unspecified
CPT/HCPCS: 74177; Q9967; A4216

== ENCOUNTER → 2021-11-17 | Outpatient (CLI) | payer MEDICARE, OTHER, SELFPAY | END | disposition home or self-care (01) | LOC: LAB 11:12 | PROVIDERS: PCP Family Medicine; Referring Provider Nurse Practitioner Adult Health; Visit Provider Nurse Practitioner Adult Health | DX: Z00.00 Encounter for general adult medical examination without abnormal findings (principal) ==

== ENCOUNTER → 2021-11-23 | Outpatient (CLI) | payer MEDICARE, OTHER, SELFPAY ==
--- NOTE | 2021-11-23 10:28 | NM_ITS ---
CLINICAL: 71-year-old diabetic female with history of morning nausea and early satiety. SEMI-SOLID PHASE 99m Tc SULFUR COLLOID GASTRIC EMPTYING STUDY COMPARISON: CT of the abdomen-pelvis report 11/10/2021 FINDINGS: The patient was administered 1.0 mCi of 99m Tc sulfur colloid mixed with oatmeal and consumed per os. Image acquisitions in the anterior-posterior projections were obtained for 60 minutes. There is prompt visualization of the stomach. There is no gastroesophageal reflux identified. The T ? emptying was calculated to be 28.86 minutes, (Normal: 12-56 minutes). NM/Gastric Emptying Study IMPRESSION: 1. NORMAL 99m Tc sulfur colloid semi-solid phase (oatmeal) gastric emptying imaging examination. A. There is normal and preserved semi-solid phase gastric emptying compared to normal controls. (Adal et al, J Nucl Med Tech 38: 186, 2010). Electronically Signed: Jemal Loyd, at 21:18 EDT ,
== END | disposition home or self-care (01) ==
LOC: NM 10:25
PROVIDERS: PCP Family Medicine; Referring Provider Nurse Practitioner Adult Health; Visit Provider Nurse Practitioner Adult Health
DX: R68.81 Early satiety (principal)
CPT/HCPCS: 78264; A9541

== ENCOUNTER 2021-11-24 20:00 | Outpatient (CLI) | payer MEDICARE, OTHER, SELFPAY | END 2021-11-24 23:59 | disposition home or self-care (01) | LOC: SL 20:17 | PROVIDERS: PCP Family Medicine; Visit Provider Nurse Practitioner Acute Care | DX: G47.30 Sleep apnea, unspecified (principal); K76.0 Fatty (change of) liver, not elsewhere classified; Z90.49 Acquired absence of other specified parts of digestive tract | CPT/HCPCS: 76705; 76981; 95811 ==

== ENCOUNTER → 2021-11-24 | Outpatient (CLI) | payer MEDICARE, OTHER, SELFPAY ==
--- NOTE | 2021-11-24 09:50 | US_ITS ---
STUDY: ABDOMINAL ULTRASOUND - ELASTOGRAPHY REASON FOR VISIT: Female, 71 years old. Fatty infiltration of the liver. TECHNIQUE: Liver stiffness measurements were obtained on a [employer] RS 85 ultrasound machine using a CA 1-7 probe following the SRU guidelines. 3 measurements were obtained using a 2-D-SWE method. The IQR/M was 20 % suggesting a quality data set. TECHNICAL QUALITY: Adequate. COMPARISON: None. FINDINGS: Liver: Fatty infiltration of the liver. Median liver stiffness measured 9.1 kPa. US/Elastography Parenchyma/Organ IMPRESSION: Liver stiffness measures 9.1 kPa compatible with F2-F3 (Mild to moderate liver fibrosis) Metavir score. Electronically Signed: Richard Doe MD at 15:40 EDT ,
--- NOTE | 2021-11-24 09:50 | US_ITS ---
STUDY: ABDOMINAL ULTRASOUND - RIGHT UPPER QUADRANT REASON FOR VISIT: Female, 71 years old fatty liver TECHNIQUE: Ultrasound evaluation of the right upper quadrant was performed with real-time and static huddleston-scale imaging. TECHNICAL QUALITY: Adequate. COMPARISON: None. FINDINGS: Liver: The liver measures 15.9 cm. There is increased echogenicity consistent with fatty infiltration. The bile ducts are within normal limits. There is hepatic color flow. The direction of portal flow is hepatopetal. There is no demonstrated mass lesion. Gallbladder: The patient is status post cholecystectomy. Common Bile Duct (C.B.D.): The common bile duct measures 2.8 mm. Pancreas: Normal size of the head, body and tail of the pancreas. There is normal echogenicity of the pancreas. There is no demonstrated pancreatic mass or cyst. Right Kidney: Normal size of the right kidney. The right kidney measures 9.4 cm x 5 cm x 5.4 cm. Normal renal cortex. The right cortex measures 1.6 cm. There is no demonstrated renal mass or cyst. There is no right hydronephrosis. US/Abdomen Limited IMPRESSION: Fatty infiltration of the liver. Status post cholecystectomy. Electronically Signed: Richard Doe MD at 15:41 EDT ,
== END | disposition home or self-care (01) ==
PROVIDERS: PCP Family Medicine; Referring Provider Nurse Practitioner Adult Health; Visit Provider Nurse Practitioner Adult Health
DX: K76.0 Fatty (change of) liver, not elsewhere classified (principal); Z90.49 Acquired absence of other specified parts of digestive tract
CPT/HCPCS: 76705; 76981

== ENCOUNTER → 2021-12-07 | Outpatient (CLI) | payer MEDICARE, OTHER, SELFPAY ==
[2021-12-13 10:55] LABS: Pancreatic Elastase, Fecal 195 (>200)
[2021-12-17 09:08] LABS: Fats, Neutral Normal (.); Fats, Total Increased (.)
== END | disposition home or self-care (01) ==
LOC: LAB 14:57
PROVIDERS: PCP Family Medicine; Referring Provider Nurse Practitioner Adult Health; Visit Provider Nurse Practitioner Adult Health
DX: R19.7 Diarrhea, unspecified (principal)
CPT/HCPCS: 82653; 82705

== ENCOUNTER 2021-12-21 10:20 | Day surgery (SDC) | payer MEDICARE, OTHER, SELFPAY ==
[2021-12-21] VITALS (8 sets, daily range): BP systolic 136–151; BP diastolic 65–88; PULSE 68–86; RESP 16–18; TEMP 36.6–37; O2SAT 92–98; BMI 36.3
--- NOTE | 2021-12-21 | GASB_PTH ---
PATIENT: VARGAS RODRIGUEZ LOC: EN U#:[id number] AGE/SX: 71/F ROOM: RE12/21/[address]: Dr. Constantine Piña DO : 1950 BED: DIS: 12/21/2021 SPEC #: [id number] RECD: 12/21/21 15:04 STATUS: ANNIA MUJICA #: [id number] SHAN: 12/21/21 00:[address]: Constantine Piña DEPT: SURGICAL PATHOLOGY RECD BY: Ismael Ascencio ENTERED: 12/22/21 10:36 SP TYPE: Gastric Bx OTHR DR: Dr. Dejuan Chavez DO Tissues: A - Gastric mucous membrane B - Duodenum, NOS C - Ascending colon D - COLON BIOPSY Procedures: Surgery Specimen Level IV HEADER OPERATION: Colonoscopy, EGD ([facility] [place]), biopsies, polypectomy PRE-OP DIAGNOSIS: Diarrhea, early satiety, heartburn, nausea TISSUE SUBMITTED: A ? Gastric body biopsy, B ? Duodenum biopsy, C ? Ascending colon polyp, D ? Random colonic biopsies MICROSCOPIC DIAGNOSIS A. Gastric body, biopsy: Chronic gastritis. See comment. B. 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 Minimal nonspecific chronic inflammation. C. Ascending colon polyp, biopsy: Fragments of tubular adenoma. D. Colon, random biopsy: No pathologic change. AM:shahida 12/25/2021 COMMENT A. The results of immunohistochemistry for Helicobacter pylori will be reported separately ([id number]). MICROSCOPIC DESCRIPTION Slides are reviewed. GROSS DESCRIPTION A - Received in fixative is one container labeled with the patient's name and designated gastric body biopsy. The specimen consists of two irregular fragments of light green soft tissue that in aggregate measure 0.8 x 0.4 x 0.1 cm. The specimen is totally submitted in one cassette. B - Received in fixative is one container labeled with the patient's name and designated duodenum biopsy. The specimen consists of multiple irregular fragments of light green soft tissue that in aggregate measure 1.5 x 0.4 x 0.1 cm. The specimen is totally submitted in one cassette. C - Received in fixative is one container labeled with the patient's name and designated ascending colon polyp. The specimen consists of multiple irregular fragments of light green soft tissue that in aggregate measure 1.5 x 1 x 0.3 cm. The specimen is totally submitted in one cassette. D - Received in fixative is one container labeled with the patient's name and designated random colonic biopsy. The specimen consists of multiple irregular fragments of light green soft tissue that in aggregate measure 2 x 0.5 x 0.1 cm. The specimen is totally submitted in one cassette. / SJ:rg 12/22/2021 TC:5 CPT: 64645 x4
--- NOTE | 2021-12-21 10:43 | HP.PCM_ITS ---
History and Physical Date of Admission: 12/21/21 71 F who presents to the office today for heartburn, loose stools Heartburn bothers her when she lies down, this has gotten more bothersome, approx 4 nights a week, takes TUMS prn which relieves the burning. Wonders about a hiatal hernia. No prior EGD. No hx prescription medication for acid reflux. Denies cough, hoarse voice, dysphagia. No vomiting. She has nausea about 2x per month when she wakes up, then it resolves when she sneezes.? Occas gets full quickly. Normal appetite. For several years her bowels have been loose, urgent, has accidents, might start soft (but never formed) and then watery, has to have BM soon after eating, 3 BMs in a row then in quick succession, cramping across lower abd before BM. No nocturnal BMs. Uses to be only after eating, now first thing in morning too. No melena or hematochezia. No treatment for the bowels. Can also have pain in the back when she eats, between the shoulder blades. Last colonoscopy about [address] Fernandes at [facility]. Hx one polyp on her first colonoscopy about 20 yrs ago, no polyps since. She reports she has diverticula. Daughter used to work as GI nurse Comorbidities include anxiety, depression, angioedema (prn benedryl and prednisone), DM2, hyperlipidemia, HTN, obesity, CLARY PSH appy, cholecystectomy ROS Const Constitutional: No fatigue ENT ENT: No difficulty swallowing Gastro GI: Positive for bloating, diarrhea, heartburn and excessive flatus; No abdominal pain, belching, change in bowel habits, change in stool character, coffee ground emesis, constipation, cramping, difficulty swallowing, feeling full early, incontinent of stools, Vomiting blood/hematemesis, Blood in stool, loose stools, Black,tarry stools, nausea/dyspepsia, pain with swallowing, vomiting or other Musc Musculoskeletal: No joint pain Skin Skin: No yellowing of the eye or itchy eyes Psych Psychiatric: No anxiety and No depression Endo Endocrine: No fatigue Aller/Imm Allergy/Immunologic: No itchy eyes Hemant/Lymp Hematologic/Lymphatic: No easy bleeding or easy bruising Exam Const General: cooperative and comfortable Nutritional Appearance: obese Orientation: alert, awake and oriented x3 HENMT Head: normal to inspection Eyes General: appearance normal, both eyes and all related structures Resp Effort & Inspection: normal respiratory effort GI Palpation: soft, no masses and nontender Skin General: no jaundice Neuro Speech: speech normal Gait: normal gait Quality Reporting Tobacco Screening ([facility] 138) Smoking Status: Never smoker Assessment and Plan Assessment and Plan (1) Diarrhea: ?Status:?Acute (2) Early satiety: ?Status:?Acute (3) Heartburn: ?Status:?Acute (4) Nausea: ?Status:?Acute ?Plan: 71 yr old female with heartburn, morning nausea, early satiety, post prandial infrascapular pain, lower abdominal cramping, diarrhea Pantoprazole 40 mg QAM for heartburn Creon samples 1 with snack, 2 with meals for ?EPI, will check fecal elastase Gastric emptying test to eval for gastroparesis that could cause her early satiety, nausea, increased acid reflux CT abd pel w/ oral and IV to evaluate lower abd pain, chronic diarrhea, and check pancreas considering postprandial infrascapular pain in the setting of DM Stool tests for infection, inflammation, pancreas insufficiency Blood tests today, will notify her of results as available EGD and colonoscopy f/u 2 wks after endoscopy ? ? ? Orders: Orders Pancreatic Elastase, Fecal Today R19.7 - Diarrhea, unspecified ? Fecal Fat, Qualitative Today R19.7 - Diarrhea, unspecified ? Ova and Parasites 8623 Today K58.9 - Irritable bowel syndrome without diarrhea, R19.7 - Diarrhea, unspecified ? Stool Lactoferrin/WBC Today K58.9 - Irritable bowel syndrome without diarrhea, R19.7 - Diarrhea, unspecified ? ENTERIC PATHOGEN PANEL STOOL Today D84.9 - Immunodeficiency, unspecified, K58.9 - Irritable bowel syndrome without diarrhea, R19.7 - Diarrhea, unspecified ? CDIFF (PCR) Today R19.7 - Diarrhea, unspecified ? Calprotectin, Stool Today R19.7 - Diarrhea, unspecified ? Gastric Emptying Study Today R68.81 - Early satiety ? CRP Today R19.7 - Diarrhea, unspecified ? Amylase Today R19.7 - Diarrhea, unspecified ? Comprehensive Metabolic Profil Today R19.7 - Diarrhea, unspecified ? Lipase Today R19.7 - Diarrhea, unspecified ? CBC W/Diff, Automated Today K58.9 - Irritable bowel syndrome without diarrhea, R19.7 - Diarrhea, unspecified ? RUY Comprehensive Panel Today R19.7 - Diarrhea, unspecified ? Celiac Disease Profile Today R19.7 - Diarrhea, unspecified ? ANCA Today R19.7 - Diarrhea, unspecified ? Abdomen/Pelvis WITH Contrast Today R10.30 - Lower abdominal pain, unspecified ? Medications: New pantoprazole 40 mg? PO QAM 90 tabs 1RF ? ? I have re-examined the patient. There are no clinical changes since date of exam.
[2021-12-21] MEDS: Lactated Ringers 1,000 ML 15 ML IV (11:02)
[2021-12-21 11:25] LABS: Bedside Glucose 168 mg/dL (74-106)
--- NOTE | 2021-12-21 11:45 | IMM_PTH ---
PATIENT: VARGAS RODRIGUEZ LOC: EN U#:[id number] AGE/SX: 71/F ROOM: RE12/21/[address]: Dr. Constantine Piña DO : 1950 BED: DIS: 12/21/2021 SPEC #: [id number] RECD: 12/22/21 09:34 STATUS: ANNIA REQ #: [id number] SHAN: 12/21/21 11:[address]: Constantine Piña DEPT: IMMUNOHISTOCHEMISTRY RECD BY: Laura Rubio ENTERED: 12/22/21 09:35 SP TYPE: IMMUNO OTHR DR: Dr. Dejuan Chavez DO Tissues: A - Stomach, NOS Procedures: H Pylori (initial) PHYSICIAN & INSTITUTION [place] [id number] SPECIMEN INFORMATION: Tissue Source: A ? Gastric body biopsy Clinical Info: Diarrhea, early satiety, heartburn, nausea Specimen Number: [id number] CPT code: 01772 METHODOLOGY: Deparaffinized sections of prefer/formalin-fixed tissue or PAP/DQ stained slides are incubated with monoclonal/polyclonal antibodies/oligonucleotide probes. Localization is made via biotin free immunoperoxidase method. Appropriate controls are performed and reacted as expected. Results on target cell population are indicated in the following table: RESULTS: ANTIBODY / CLONE RESULT Block A H Pylori (polyclonal) negative These tests were developed and their performance characteristics determined by [facility]. They may not have been cleared or approved by the U.S. Food and Drug Administration. The FDA has determined that such clearance or approval is not necessary. The above immunohistochemical/dualISH markers are ordered and reviewed by the Pathologist. INTERPRETATION: A. Gastric body, biopsy: Negative for Helicobacter pylori organisms. AM:shahida 12/25/2021
--- NOTE | 2021-12-21 12:58 | OP.EGD_ITS ---
Patient Name: Magda Arciniega Procedure Date: 12/21/2021 12:02 PM Date of : 1950 Age: 71 Procedure: Upper GI endoscopy Indications: Epigastric abdominal pain, Functional Dyspepsia Providers: Constantine Piña DO Medicines: Monitored Anesthesia Care Patient Profile: This is a 71 year old female. Refer to note in patient chart for documentation of history and physical. Patient has symptoms of chronic abdominal cramping, chronic abdominal distention, chronic epigastric abdominal pain and chronic dyspepsia. Complications: No immediate complications. Procedure: Pre-Anesthesia Assessment: - Prior to the procedure, a History and Physical was performed, and patient medications and allergies were reviewed. The risks and benefits of the procedure and the sedation options and risks were discussed with the patient. All questions were answered and informed consent was obtained. Patient identification and proposed procedure were verified by the physician in the pre-procedure area. Mental Status Examination: alert and oriented. Airway Examination: normal oropharyngeal airway and neck mobility. Respiratory Examination: clear to auscultation. CV Examination: normal. Prophylactic Antibiotics: The patient does not require prophylactic antibiotics. Prior Anticoagulants: The patient has taken no previous anticoagulant or antiplatelet agents. ASA Grade Assessment: II - A patient with mild systemic disease. After reviewing the risks and benefits, the patient was deemed in satisfactory condition to undergo the procedure. The anesthesia plan was to use monitored anesthesia care (MAC). Immediately prior to administration of medications, the patient was re-assessed for adequacy to receive sedatives. The heart rate, respiratory rate, oxygen saturations, blood pressure, adequacy of pulmonary ventilation, and response to care were monitored throughout the procedure. The physical status of the patient was re-assessed after the procedure. After obtaining informed consent, the endoscope was passed under direct vision. Throughout the procedure, the patient's blood pressure, pulse, and oxygen saturations were monitored continuously. The colonoscope was introduced through the mouth, and advanced to the second part of duodenum. The upper GI endoscopy was accomplished without difficulty. The patient tolerated the procedure well. Scope In: 12:12:41 PM Scope Out: 12:16:26 PM Total Procedure Duration Time 0 hours 3 minutes 45 seconds Findings: The examined esophagus was normal. A small hiatal hernia was present. Patchy mild inflammation characterized by erosions and erythema was found in the gastric body. Biopsies were taken with a cold forceps for histology. Verification of patient identification for the specimen was done. Estimated blood loss was minimal. Patchy mildly erythematous mucosa without active bleeding and with no stigmata of bleeding was found in the duodenal bulb. Biopsies were taken with a cold forceps for histology. Verification of patient identification for the specimen was done. Estimated blood loss was minimal. Impression: - Normal esophagus. - Small hiatal hernia. - Gastritis. Biopsied. - Erythematous duodenopathy. Biopsied. Recommendation: - Discharge patient to home. - Resume previous diet. - Continue present medications. - Await pathology results. Procedure Code(s): --- Professional --- 88666, Esophagogastroduodenoscopy, flexible, transoral; with biopsy, single or multiple CPT copyright 2017 [employer]. All rights reserved. The codes documented in this report are preliminary and upon equipment maint tech review may be revised to meet current compliance requirements. Constantine Piña DO 12/21/2021 12:58:12 PM This report has been signed electronically. Number of Addenda: 0 Note Initiated On: 12/21/2021 12:02 PM
--- NOTE | 2021-12-21 12:59 | OP.CCLET_ITS ---
12/21/2021 Dejuan Chavez [address] [facility] [place] [address] Re : Upper GI endoscopy procedure for Magda Arciniega Dear Dr. Chavez This procedure was performed on December. My impressions and recommendations are as follows: Impressions : - Normal esophagus. - Small hiatal hernia. - Gastritis. Biopsied. - Erythematous duodenopathy. Biopsied. Recommendations : - Discharge patient to home. - Resume previous diet. - Continue present medications. - Await pathology results. My findings are described in the full procedure note, which is enclosed. If I can be of further assistance, please feel free to contact me at . Sincerely, Constantine Friend, 12/21/2021 12:58:12 PM This report has been signed electronically.
--- NOTE | 2021-12-21 13:05 | SUR.PHASEI ---
QUESTIONABLE SINUS ARRHYTHMIA VS. ATRIAL FIB. PATIENT STATES SHE HAS Hx OF ARRHYTHMIA. DENIES ANY CHEST PAIN, SOB, DIFFICULTY BREATHING, PALPITATIONS, NAUSEA, OR ANY OTHER C/O. DR KANG NOTIFIED. 12-LEAD EKG OBTAINED & REVIEWED BY DR KANG WHO WILL SHARE WITH CLEANER.
--- NOTE | 2021-12-21 13:05 | OP.COLON_ITS ---
Patient Name: Magda Arciniega Procedure Date: 12/21/2021 12:16 PM Date of : 1950 Age: 71 Procedure: Colonoscopy Indications: Chronic diarrhea Providers: Constantine Piña DO Medicines: Monitored Anesthesia Care Patient Profile: This is a 71 year old female. Refer to note in patient chart for documentation of history and physical. Patient has symptoms of chronic abdominal cramping, chronic abdominal distention, chronic epigastric abdominal pain and chronic dyspepsia. Last Colonoscopy: date unknown. Unable to locate last colonoscopy report. Complications: No immediate complications. Procedure: Pre-Anesthesia Assessment: - Prior to the procedure, a History and Physical was performed, and patient medications and allergies were reviewed. The risks and benefits of the procedure and the sedation options and risks were discussed with the patient. All questions were answered and informed consent was obtained. Patient identification and proposed procedure were verified by the physician in the pre-procedure area. Mental Status Examination: alert and oriented. Airway Examination: normal oropharyngeal airway and neck mobility. Respiratory Examination: clear to auscultation. CV Examination: normal. Prophylactic Antibiotics: The patient does not require prophylactic antibiotics. Prior Anticoagulants: The patient has taken no previous anticoagulant or antiplatelet agents. ASA Grade Assessment: II - A patient with mild systemic disease. After reviewing the risks and benefits, the patient was deemed in satisfactory condition to undergo the procedure. The anesthesia plan was to use monitored anesthesia care (MAC). Immediately prior to administration of medications, the patient was re-assessed for adequacy to receive sedatives. The heart rate, respiratory rate, oxygen saturations, blood pressure, adequacy of pulmonary ventilation, and response to care were monitored throughout the procedure. The physical status of the patient was re-assessed after the procedure. After I obtained informed consent, the scope was passed under direct vision. Throughout the procedure, the patient's blood pressure, pulse, and oxygen saturations were monitored continuously. The colonoscope was introduced through the anus and advanced to the terminal ileum. The colonoscopy was performed without difficulty. The patient tolerated the procedure well. The quality of the bowel preparation was good. Moderate Sedation: Moderate (conscious) sedation was personally administered by an anesthesia professional. The following parameters were monitored: oxygen saturation, heart rate, blood pressure, respiratory rate, EKG, adequacy of pulmonary ventilation, and response to care. Scope In: 12:19:24 PM Scope Withdrawal Time 0 hours 26 minutes 43 seconds Scope Out: 12:51:51 PM Total Procedure Duration Time 0 hours 32 minutes 27 seconds Findings: The perianal and digital rectal examinations were normal. Multiple small and large-mouthed diverticula were found in the entire colon. There was no evidence of diverticular bleeding. A 25 mm polyp was found in the ascending colon. The polyp was sessile. The polyp was removed with a hot snare. The polyp was removed with a saline injection-lift technique using a hot snare. The polyp was removed with a piecemeal technique using a hot snare. Resection and retrieval were complete. Area was successfully injected with 5 mL of a 1:10,000 solution of epinephrine for lesion assessment, and this injection appeared to lift the lesion adequately. Estimated blood loss was minimal. An area of mildly congested mucosa was found in the descending colon, at the splenic flexure, in the transverse colon and at the hepatic flexure. Biopsies were taken with a cold forceps for histology. Verification of patient identification for the specimen was done. Estimated blood loss was minimal. Impression: - Severe diverticulosis in the entire examined colon. There was no evidence of diverticular bleeding. - One 25 mm polyp in the ascending colon, removed with a hot snare, removed using injection-lift and a hot snare and removed piecemeal using a hot snare. Resected and retrieved. Injected. - Congested mucosa in the descending colon, at the splenic flexure, in the transverse colon and at the hepatic flexure. Biopsied. Recommendation: - Discharge patient to home. - Resume previous diet. - Continue present medications. - Await pathology results. - Repeat colonoscopy in 1 year for surveillance after piecemeal polypectomy. Procedure Code(s): --- Professional --- 71274, Colonoscopy, flexible; with removal of tumor(s), polyp(s), or other lesion(s) by snare technique 35792, Colonoscopy, flexible; with directed submucosal injection(s), any substance 72970, 59, Colonoscopy, flexible; with biopsy, single or multiple CPT copyright 2017 [employer]. All rights reserved. The codes documented in this report are preliminary and upon director of academic support review may be revised to meet current compliance requirements. Constantine Piña DO 12/21/2021 1:05:05 PM This report has been signed electronically. Number of Addenda: 0 Note Initiated On: 12/21/2021 12:16 PM
--- NOTE | 2021-12-21 13:06 | OP.CCLET_ITS ---
12/21/2021 Dejuan Chavez [address] [facility] [place] [address] Re : Colonoscopy procedure for Magda Arciniega Dear Dr. Chavez This procedure was performed on December. My impressions and recommendations are as follows: Impressions : - Severe diverticulosis in the entire examined colon. There was no evidence of diverticular bleeding. - One 25 mm polyp in the ascending colon, removed with a hot snare, removed using injection-lift and a hot snare and removed piecemeal using a hot snare. Resected and retrieved. Injected. - Congested mucosa in the descending colon, at the splenic flexure, in the transverse colon and at the hepatic flexure. Biopsied. Recommendations : - Discharge patient to home. - Resume previous diet. - Continue present medications. - Await pathology results. - Repeat colonoscopy in 1 year for surveillance after piecemeal polypectomy. My findings are described in the full procedure note, which is enclosed. If I can be of further assistance, please feel free to contact me at . Sincerely, Constantine Piña, 12/21/2021 1:05:05 PM This report has been signed electronically.
== END 2021-12-21 12:47 | disposition home or self-care (01) ==
LOC: EN 10:21 → AC 10:27
PROVIDERS: PCP Family Medicine; Referring Provider Family Medicine; Visit Provider Internal Medicine Gastroenterology
PROC: 0DJD8ZZ Inspection of Lower Intestinal Tract, Via Natural or Artificial Opening Endoscopic (ICD-10-PCS; CPT 45378; principal; 2021-12-21 11:40)
DX: D12.2 Benign neoplasm of ascending colon (principal); E66.01 Morbid (severe) obesity due to excess calories; E11.9 Type 2 diabetes mellitus without complications; K57.30 Diverticulosis of large intestine without perforation or abscess without bleeding; K58.0 Irritable bowel syndrome with diarrhea; K44.9 Diaphragmatic hernia without obstruction or gangrene; K30 Functional dyspepsia; K31.89 Other diseases of stomach and duodenum; K29.50 Unspecified chronic gastritis without bleeding; K21.9 Gastro-esophageal reflux disease without esophagitis; I10 Essential (primary) hypertension; E78.5 Hyperlipidemia, unspecified; E55.9 Vitamin D deficiency, unspecified; G47.33 Obstructive sleep apnea (adult) (pediatric); R68.81 Early satiety; Z68.36 Body mass index [BMI] 36.0-36.9, adult; Z90.49 Acquired absence of other specified parts of digestive tract; Z79.84 Long term (current) use of oral hypoglycemic drugs; Z79.899 Other long term (current) drug therapy
CPT/HCPCS: 45385; 45380; 45381; 43239; 82962; 88305; 88342; 93005; J7120; A4648; J2405; J3490

== ENCOUNTER → 2022-06-14 | Outpatient (CLI) | payer MEDICARE, OTHER, SELFPAY ==
--- NOTE | 2022-06-14 10:04 | BI_ITS ---
MAMMOGRAPHY - BILATERAL SCREENING REASON FOR EXAM: Female, 72 years old. Routine annual screening examination. PERTINENT HISTORY: Sister with breast cancer. Aunt with breast cancer. TECHNIQUE: Digital bilateral breast joaquín (3D mammographic acquisition) in the CC and MLO projections. 2-D mediolateral oblique (MLO) and craniocaudad (CC) views of both breasts were obtained. CAD: Full Field Digital Mammography with Computer Added Detection was performed. COMPARISON: Comparison is made with prior study dated May 08, 2021 and April 06, 2019. FINDINGS: Breast Composition: The breasts are almost entirely fatty. There are no dominant masses or suspicious calcifications. Stable small benign-appearing bilateral axillary lymph nodes. No other significant abnormalities are identified. There has been no significant change since the prior study. BI/SCRN MAMM (CAD)W/JOAQUÍN BILAT IMPRESSION: Stable bilateral screening mammogram. Yearly follow-up mammogram recommended. (A) ASSESSMENT CATEGORY: BIRADS Category 2: Benign. A letter regarding these results will be sent to the patient by the facility within 30 days. Approximately 10% of breast cancers are not detected by mammography. A normal mammogram should not delay biopsy of a clinically suspicious abnormality. [id number] Electronically Signed: Richard Doe MD at 12:17 EDT ,
== END | disposition home or self-care (01) ==
LOC: OPBI 10:02
PROVIDERS: PCP Family Medicine; Referring Provider Family Medicine; Visit Provider Family Medicine
DX: Z12.31 Encounter for screening mammogram for malignant neoplasm of breast (principal); Z80.3 Family history of malignant neoplasm of breast
CPT/HCPCS: 77063; 77067

== ENCOUNTER → 2022-07-12 | Outpatient (CLI) | payer MEDICARE, OTHER, SELFPAY ==
--- NOTE | 2022-07-12 09:57 | US_ITS ---
STUDY: ABDOMINAL ULTRASOUND - RIGHT UPPER QUADRANT REASON FOR VISIT: Female, 72 years old elastography, fatty liver TECHNIQUE: Ultrasound evaluation of the right upper quadrant was performed with real-time and static huddleston-scale imaging. TECHNICAL QUALITY: Adequate. COMPARISON: Comparison is made with prior study of November 24, 2021. FINDINGS: Liver: The liver measures 16 cm. There is increased echogenicity consistent with fatty infiltration. The bile ducts are within normal limits. There is hepatic color flow. The direction of portal flow is hepatopetal. There is no demonstrated mass lesion. Gallbladder: The patient is status post cholecystectomy. Common Bile Duct (C.B.D.): The common bile duct measures 5 mm. Pancreas: Normal size of the head, body and tail of the pancreas. There is normal echogenicity of the pancreas. There is no demonstrated pancreatic mass or cyst. Right Kidney: Normal size of the right kidney. The right kidney measures 10.2 cm x 5.2 cm x 4.8 cm. Normal renal cortex. The right cortex measures 1.2 cm. There is no demonstrated renal mass or cyst. There is no right hydronephrosis. IMPRESSION: Fatty infiltration of the liver. Status post cholecystectomy. Electronically Signed: Richard Doe MD at 11:05 EDT , STUDY: ABDOMINAL ULTRASOUND - ELASTOGRAPHY REASON FOR VISIT: Female, 72 years old. Fatty infiltration of the liver. TECHNIQUE: Liver stiffness measurements were obtained on a [employer] 85 ultrasound machine using a CA 1-7 probe following the SRU guidelines. 3 measurements were obtained using a 2-D-SWE method. TheIQR/M was 18 % suggesting a quality data set. TECHNICAL QUALITY: Adequate. COMPARISON: Comparison is made with prior study done earlier in the day. FINDINGS: Liver: Fatty infiltration of the liver. Median liver stiffness measured 8.2 kPa. Abdomen: There is no demonstrated mass lesion. US/ABD Limited w/ Elastography IMPRESSION: Liver stiffness measures 8.2 kPa compatible with F2-F3 (Mild to moderate liver fibrosis) Metavir score. Electronically Signed: Richard Doe MD at 11:06 EDT ,
== END | disposition home or self-care (01) ==
LOC: US 09:56
PROVIDERS: PCP Family Medicine; Referring Provider Nurse Practitioner Adult Health; Visit Provider Nurse Practitioner Adult Health
DX: K76.0 Fatty (change of) liver, not elsewhere classified (principal); Z90.49 Acquired absence of other specified parts of digestive tract
CPT/HCPCS: 76705; 76981

== ENCOUNTER → 2022-08-10 | Outpatient (CLI) | payer MEDICARE, SELFPAY | END | disposition home or self-care (01) | PROVIDERS: PCP Family Medicine; Referring Provider Nurse Practitioner Acute Care; Visit Provider Nurse Practitioner Acute Care | DX: G47.30 Sleep apnea, unspecified (principal) | CPT/HCPCS: 95811 ==

== ENCOUNTER → 2022-08-27 | Outpatient (CLI) | payer MEDICARE, SELFPAY ==
[2022-08-27 12:23] LABS: Absolute Lymphocyte Count 2.11 X10^3/uL (0.83-4.51); Absolute Neutrophil Count 4.4 X10^3/uL (2.0-7.7); Basophil# 0.08 X10^3/uL; Basophil% 1.1 % (0-1); Eosinophil# 0.24 X10^3/uL; Eosinophils% 3.2 % (0-5); Hematocrit 41.1 % (37-47); Hemoglobin 13.3 g/dL (12.0-15.0); Lymphocyte # 2.11 X10^3/ul (0.83-4.51); Lymphocyte % 27.9 % (19-41); Mean Corp Hgb Conc 32.4 g/dL (32-36); Mean Corpuscular Hgb 29.4 pg (27.0-32.0); Mean Corpuscular Volume 90.7 fL (81-99); Mean Platelet Vol. 9.8 fl (6.2-12.0); Monocyte# 0.73 X10^3/uL; Monocyte% 9.7 % (0-10); NRBC Flagged by Analyzer 0 % (0-5); Neutrophil # 4.39 X10^3/uL (2.7-7.7); Platelet Count 315 K/mm3 (150-450); RBC Distribution Width CV 13.5 % (11.6-14.6); RBC Distribution Width SD 44.7 fl (35.1-43.9); Red Blood Count 4.53 M/mm3 (4.2-5.4); White Blood Count 7.6 K/mm3 (4.4-11.0)
[2022-08-27 13:07] LABS: AST(SGOT) 13 U/L (15-37); Alanine Aminotransfer ALT/SGPT 16 U/L (13-56); Albumin, Serum 3.5 g/dL (3.2-5.0); Alkaline Phosphatase 51 U/L (45-117); Anion Gap 7 (5-15); BUN 17 mg/dL (7-18); BUN/Creat Ratio 20.5 RATIO (10-20); Calcium,Total 8.8 mg/dL (8.5-10.1); Chloride 103 mmol/L (98-107); Cholesterol 156 mg/dL (200); Creatinine, Serum 0.83 mg/dL (0.55-1.02); EST Glomerular Filtration Rate 72 mL/min (>60); Est Glom Filt Rate - Afr Amer 87 mL/min (>60); Globulin 3.6 g/dL (2.2-4.2); Glucose 174 mg/dL (74-106); High Density Lipoprotein 44 mg/dL; Potassium 3.3 mmol/L (3.5-5.1); Protein, Total 7.1 g/dL (6.4-8.2); Sodium Level 140 mmol/L (136-145); Triglycerides 241 mg/dL; Very Low Density Lipoprotein 48 mg/dL (5-40)
[2022-08-27 13:15] LABS: Microalbumin,Random Urine 34.6 mg/L (NO RANGE EST.); Microalbumin:Creatinine Ratio 13.4 mg/g CRE (<30 mg/g CRE)
== END | disposition home or self-care (01) ==
LOC: BFHLAB 09:45
PROVIDERS: PCP Family Medicine; Referring Provider Family Medicine; Visit Provider Family Medicine
DX: E11.9 Type 2 diabetes mellitus without complications (principal); I10 Essential (primary) hypertension; E78.5 Hyperlipidemia, unspecified
CPT/HCPCS: 36415; 80053; 80061; 82043; 82570; 83036; 85025

== ENCOUNTER 2023-01-28 05:57 | Day surgery (SDC) | payer MEDICARE, OTHER, SELFPAY ==
[2023-01-28 06:20] VITALS: BP 151/95; PULSE 70; RESP 16; TEMP 36.6; O2SAT 96; BMI 37.3
[2023-01-28] MEDS: Lactated Ringers 1,000 ML 15 ML IV (06:22)
--- NOTE | 2023-01-28 06:25 | PCM.HP.BLA ---
History and Physical Date of Admission: 01/28/23 72 F who presents to the office today for follow up. PMH anxiety/depression, angioedema, DMII, HLD, HTN, obesity, CLARY?PSH appendectomy, cholecystectomy? *BGI established 11.01.21 nocturnal heartburn when she lies down 4 times/week; TUMs PRN helpful. Postprandial loose stools with urgency and intermittent incontinence with lower abdominal cramping.?Biochemical?CBC, CMP (K+3.4), LDH, amylase, lipase, RUY comp, celiac without pertinent abnormality?CRP H9.39, apANCA H1:80?Stool calprotectin, elastase, c.difficile, lactoferrin, EP WNL?Elastase L195, total fats elevated?CT abd/pel 11.10.21?hepatic steatosis; s/p cholecystectomy; pancreatic atrophy; duodenal diverticulum 2.7cm; transverse colon inflammatory changes, ?colitis; colonic diverticulosis?GET 9.8.22?28.86 minutes (12-56)?US/elastography 11.24.21?hepatic measurement 15.9cm with fatty infiltration stiffness 9.1kPa?EGD and colonoscopy 12.21.21?EGD small hiatal hernia; gastritis; duodenitis, Denise gland hyperplasia?Colonoscopy diverticulosis; 25mm TA polyp, submucosal lift; congested mucosa.? OV 01.11.22?Ursodiol?recommended but too expensive.?Start Vit E,?continue PPI, start metamucil?US/elastography 07.12.22?hepatic measurement 16cm with fatty infiltration, stiffness 8.2kPa? OV 9.8.23 Pt reports doing very well since last visit. HB under control. No longer takes Pantoprazole. No abdominal pain, cramping, bloating. Bowels are normal. No other concerns. ROS Const Constitutional: No fatigue ENT ENT: No difficulty swallowing Gastro GI: No abdominal pain, belching, bloating, change in bowel habits, change in stool character, coffee ground emesis, constipation, cramping, diarrhea, heartburn, difficulty swallowing, feeling full early, excessive flatus, incontinent of stools, Vomiting blood/hematemesis, Blood in stool, loose stools, Black,tarry stools, nausea/dyspepsia, pain with swallowing, vomiting or other Musc Musculoskeletal: No joint pain Skin Skin: No yellowing of the eye or itchy eyes Psych Psychiatric: No anxiety and No depression Endo Endocrine: No fatigue Aller/Imm Allergy/Immunologic: No itchy eyes Hemant/Lymp Hematologic/Lymphatic: No easy bleeding or easy bruising Exam Const General: cooperative, comfortable and no acute distress Nutritional Appearance: obese Orientation: alert, awake and oriented x3 HENMT Head: normal to inspection Eyes Sclera: sclerae normal Resp Effort & Inspection: normal respiratory effort Quality Reporting Tobacco Screening ([facility]) Smoking Status: Never smoker Assessment and Plan Assessment and Plan (1) NAFLD (nonalcoholic fatty liver disease): Status: Acute Plan: We discussed her EGD and colonoscopy results, as well as reviewing her lab work-up and other test results. Repeat colonoscopy in 1 year due to the large tubular adenoma removed piecemeal. For NAFLD, ursodiol cost prohibitive, she will start vitamin E 800 IU daily, repeat elastography in 6 mos, follow-up 7 months I repeat elastography does show improvement in her liver stiffness from 9.5 down to 8.8. I told her that this is a direct correlation with her decrease in hemoglobin A1c From 7.5-7.0. That gives her average blood sugar 154. She said that she will try to do better and regarding her diet. (2) Heartburn: Status: Acute Plan: She stopped her pantoprazole because she did not like the side effect profile. She says that she is okay taking Tums as needed. (3) Diverticular disease: Status: Acute Plan: Add daily metamucil since that has helped with diverticular disease in the past. Hopefully that will bulk up the stool to help with her intermittent diarrhea. Consider possibility of SCAD, could consider treating with mesalamine, but she prefers no further medications at this time which I think is reasonable. (4) P-ANCA titer positive: Status: Acute Plan: Positive atypical p-ANCA. No evidence of ulcerative colitis. No abnormal labs that would indicate primary sclerosing cholangitis or autoimmune hepatitis. There is no indication for MRCP or liver biopsy at this time. We will continue to follow. (5) Tubular adenoma of colon: Status: Acute Plan: as above I have examined the patient and the H&P has been reviewed. There are no clinical changes since date of exam.
[2023-01-28 06:58] LABS: Bedside Glucose 206 mg/dL (74-106)
--- NOTE | 2023-01-28 07:30 | OP.COLON_ITS ---
Patient Name: Magda Arciniega Procedure Date: 01/28/2023 7:04 AM Date of : 1950 Age: 72 Procedure: Colonoscopy Indications: Screening for colorectal malignant neoplasm Providers: Constantine Piña DO Medicines: Monitored Anesthesia Care Patient Profile: This is a 72 year old female. Refer to note in patient chart for documentation of history and physical. Last Colonoscopy: more than 10 years ago. Complications: No immediate complications. Procedure: Pre-Anesthesia Assessment: - Prior to the procedure, a History and Physical was performed, and patient medications and allergies were reviewed. The patient is competent. The risks and benefits of the procedure and the sedation options and risks were discussed with the patient. All questions were answered and informed consent was obtained. Patient identification and proposed procedure were verified by the physician in the pre-procedure area. Mental Status Examination: alert and oriented. Airway Examination: normal oropharyngeal airway and neck mobility. Respiratory Examination: clear to auscultation. CV Examination: normal. Prophylactic Antibiotics: The patient does not require prophylactic antibiotics. Prior Anticoagulants: The patient has taken no anticoagulant or antiplatelet agents. ASA Grade Assessment: II - A patient with mild systemic disease. After reviewing the risks and benefits, the patient was deemed in satisfactory condition to undergo the procedure. The anesthesia plan was to use monitored anesthesia care (MAC). Immediately prior to administration of medications, the patient was re-assessed for adequacy to receive sedatives. The heart rate, respiratory rate, oxygen saturations, blood pressure, adequacy of pulmonary ventilation, and response to care were monitored throughout the procedure. The physical status of the patient was re-assessed after the procedure. After I obtained informed consent, the scope was passed under direct vision. Throughout the procedure, the patient's blood pressure, pulse, and oxygen saturations were monitored continuously. The Colonoscope was introduced through the anus and advanced to the terminal ileum. The colonoscopy was performed without difficulty. The patient tolerated the procedure well. The quality of the bowel preparation was adequate. The terminal ileum, ileocecal valve, appendiceal orifice, and rectum were photographed. Scope In: 7:11:43 AM Scope Withdrawal Time 0 hours 8 minutes 10 seconds Scope Out: 7:25:02 AM Total Procedure Duration Time 0 hours 13 minutes 19 seconds Findings: The perianal and digital rectal examinations were normal. Multiple small and large-mouthed diverticula were found in the entire colon. The terminal ileum appeared normal. Impression: - Diverticulosis in the entire examined colon. - The examined portion of the ileum was normal. - No specimens collected. Recommendation: - Discharge patient to home. - Resume previous diet. - Continue present medications. - Repeat colonoscopy in 10 years for screening purposes. Procedure Code(s): --- Professional --- G0121, Colorectal cancer screening; colonoscopy on individual not meeting criteria for high risk CPT copyright 2021 [employer]. All rights reserved. The codes documented in this report are preliminary and upon twister doffer review may be revised to meet current compliance requirements. Constantine Piña DO 01/28/2023 7:30:08 AM This report has been signed electronically. Number of Addenda: 0 Note Initiated On: 01/28/2023 7:04 AM
--- NOTE | 2023-01-28 07:30 | OP.CCLET_ITS ---
01/28/2023 Dejuan Chavez [address] [place] [address] Re : [facility] This procedure was performed on Saturday, January 28, 2023. My impressions and recommendations are as follows: Impressions : - Diverticulosis in the entire examined colon. - The examined portion of the ileum was normal. - No specimens collected. Recommendations : - Discharge patient to home. - Resume previous diet. - Continue present medications. - Repeat colonoscopy in 10 years for screening purposes. My findings are described in the full procedure note, which is enclosed. If I can be of further assistance, please feel free to contact me at . Sincerely, Constantine Piña, 01/28/2023 7:30:08 AM This report has been signed electronically.
[2023-01-28 07:31] VITALS: BP 118/65; BP 151/75; PULSE 80; RESP 18; TEMP 36.6; O2SAT 95
[2023-01-28 07:35] VITALS: BP 125/66; BP 151/75; PULSE 72; RESP 18; O2SAT 95
[2023-01-28 07:40] VITALS: BP 130/65; BP 151/75; PULSE 70; RESP 18; O2SAT 95
[2023-01-28 07:46] VITALS: BP 133/77; BP 151/75; PULSE 60; RESP 18; TEMP 36.3; O2SAT 95
[2023-01-28 08:06] VITALS: BP 151/75
== END 2023-01-28 08:07 | disposition home or self-care (01) ==
LOC: EN 05:58 → AC 06:00
PROVIDERS: PCP Family Medicine; Referring Provider Family Medicine; Visit Provider Internal Medicine Gastroenterology
PROC: 0DJD8ZZ Inspection of Lower Intestinal Tract, Via Natural or Artificial Opening Endoscopic (ICD-10-PCS; CPT 45378; principal; 2023-01-28 06:55)
DX: Z12.11 Encounter for screening for malignant neoplasm of colon (principal); E11.9 Type 2 diabetes mellitus without complications; K57.30 Diverticulosis of large intestine without perforation or abscess without bleeding; K76.0 Fatty (change of) liver, not elsewhere classified; G47.33 Obstructive sleep apnea (adult) (pediatric); E66.9 Obesity, unspecified; G89.29 Other chronic pain; F41.9 Anxiety disorder, unspecified; F32.A Depression, unspecified; K21.9 Gastro-esophageal reflux disease without esophagitis; I10 Essential (primary) hypertension; Z79.84 Long term (current) use of oral hypoglycemic drugs; Z79.899 Other long term (current) drug therapy
CPT/HCPCS: G0121; 82962; J7120; J2405

== ENCOUNTER → 2023-05-03 | Outpatient (CLI) | payer MEDICARE, OTHER, SELFPAY ==
--- NOTE | 2023-05-03 06:19 | ECHOD_ITS ---
Reason For Study: SOB Procedure This was a 2D Doppler, Color Flow transthoracic echocardiogram. Exam performed in department. Left Ventricle Normal LV size. Mild concentric left ventricular hypertrophy. The left ventricular ejection fraction is 65 %. Normal diastology for age. Right Ventricle Normal right ventricle. Atria The left atrium is moderately enlarged. Normal right atrium. Mitral Valve Mild (1+) mitral valve insufficiency. Tricuspid Valve Trivial tricuspid valve insufficiency. Normal pulmonary artery pressure. Aortic Valve Trisinus/trileaflet aortic valve. Pulmonic Valve The pulmonic valve is not well visualized. Great Vessels Normal sized aortic root. Pericardium/Pleural No pericardial effusion. MMode/2D Measurements & Calculations LVIDd: 4.3 cm IVSd: 1.4 cm Ao root diam: 3.4 cm RVDd: 3.0 cm LVPWd: 1.4 cm LAV(MOD-bp): 45.9 ml LVAd ap4: 21.9 cm2 LVAd ap2: 21.6 cm2 LAV(MOD-bp) Indexed: 22.8 ml/m2 LVLd ap4: 7.0 cm LVLd ap2: 7.2 cm LAV(MOD-sp2): 29.2 ml EDV(MOD-sp4): 57.4 ml EDV(MOD-sp2): 54.6 ml LAV(MOD-sp4): 61.3 ml EDV(sp4-el): 58.4 ml EDV(sp2-el): 55.1 ml LVAs ap4: 10.6 cm2 LVAs ap2: 10.4 cm2 LVLs ap4: 5.7 cm LVLs ap2: 6.6 cm ESV(MOD-sp4): 17.7 ml ESV(MOD-sp2): 15.0 ml ESV(sp4-el): 16.8 ml ESV(sp2-el): 14.0 ml EF(MOD-sp4): 69.2 % EF(MOD-sp2): 72.6 % EF(sp4-el): 71.2 % SV(MOD-sp4): 39.8 ml SV(MOD-sp2): 39.6 ml SV(sp4-el): 41.6 ml LA dimension(2D): 4.9 cm LA A4 area: 21.1 cm2 RA A4 area: 11.0 cm2 TAPSE: 1.9 cm Time Measurements MV dec time: 0.20 sec Doppler Measurements & Calculations MV E max yoel: 66.8 cm/sec Lat Peak E' Yoel: 8.5 cm/sec Med Peak E' Yoel: 7.1 cm/sec MV A max yoel: 83.1 cm/sec E/E' lat: 7.8 E/E' med: 9.4 MV E/A: 0.80 MV dec slope: 335.6 cm/sec2 Ao V2 max: 121.0 cm/sec LV V1 max: 89.5 cm/sec Ao max P.9 mmHg LV V1 max P.2 mmHg Ao V2 mean: 74.9 cm/sec LV V1 mean P.6 mmHg Ao mean P.6 mmHg LV V1 mean: 59.1 cm/sec Ao V2 VTI: 26.5 cm LV V1 VTI: 22.5 cm AV (velocity ratio): 0.85 PA V2 max: 71.2 cm/sec TR max yoel: 263.8 cm/sec TR max P.8 mmHg ECHO/Echo Complete Interpretation Summary Mild concentric left ventricular hypertrophy. The left ventricular ejection fraction is 65 %. The left atrium is moderately enlarged. Mild (1+) mitral valve insufficiency. Ordering Physician: Suzie Yu Referring Physician: Dejuan Chavez Performed By: Winter Gonzalez RDCS
--- NOTE | 2023-05-06 10:38 | STRESSREP ---
Stress Test Report Date: 05/03/2023 Procedure: Pharmacologic stress nuclear imaging study Indications: Dyspnea on exertion Consent: Per the patient Procedure: The patient underwent pharmacologic (Regadenoson 0.4mg ) evaluation with a peak heart rate of 86 beats per minute (58%predicted maximal heart rate) and a peak blood pressure of 144/84 mmHg. The baseline ECG demonstrated sinus rhythm with nonspecific ST changes. The peak pharmacologic ECG demonstrated no diagnostic ischemic changes. Frequent PACs noted at rest. There was no complaint of chest discomfort during pharmacologic infusion or recovery. The patient was injected with 13.2 millicuries of technetium 99m Cardiolite and subsequently rest SPECT Cardiolite nuclear imaging was obtained in the horizontal long, vertical long, and short axis views. The patient underwent pharmacologic (Regadenoson) evaluation. The patient was injected with 43.2 millicuries of technetium 99m Cardiolite and subsequently stress SPECT Cardiolite nuclear imaging was obtained in the horizontal long, vertical long, and short axis views. A gated Cardiolite study at peak stress was obtained. The examination was stopped secondary to completion of protocol. Rest and stress SPECT Cardiolite nuclear imaging status post realignment, normalization, and attenuation correction demonstrate no fixed or reversible perfusion defects. There is end systolic thickening and brightening. The gated Cardiolite study demonstrates myocardial thickening and inward wall motion. The reported LVEF is 72%. Impression: 1. Pharmacologic (Regadenoson) evaluation 2. Peak pharmacologic ECG with no diagnostic ischemic changes. 3. Frequent PACs noted pretest. 5. Rest and stress SPECT Cardiolite nuclear imaging demonstrate relative uniform tracer uptake and myocardial perfusion appearing within normal limits. 6. The gated Cardiolite study reports an LVEF of 72%. This note was generated with [employer] software. It may contain incorrect words, spelling, and punctuation that were not noted in checking the note before signing.
== END | disposition home or self-care (01) ==
LOC: CVS 06:18
PROVIDERS: PCP Family Medicine; Referring Provider Internal Medicine Cardiovascular Disease; Visit Provider Internal Medicine Cardiovascular Disease
DX: R06.09 Other forms of dyspnea (principal); R07.89 Other chest pain; I49.3 Ventricular premature depolarization; I10 Essential (primary) hypertension; Z86.79 Personal history of other diseases of the circulatory system
CPT/HCPCS: 78452; 93017; 93306; A9500; A4216; J2785

== ENCOUNTER → 2023-06-18 | Outpatient (CLI) | payer MEDICARE, OTHER, SELFPAY | END | disposition home or self-care (01) | LOC: PSN 10:34 | PROVIDERS: PCP Family Medicine; Referring Provider Internal Medicine Critical Care Medicine; Visit Provider Internal Medicine Critical Care Medicine | DX: R06.09 Other forms of dyspnea (principal) | CPT/HCPCS: 94060; 94726; 94729 ==

== ENCOUNTER → 2023-06-19 | Outpatient (CLI) | payer MEDICARE, OTHER, SELFPAY ==
--- NOTE | 2023-06-19 12:54 | BI_ITS ---
MAMMOGRAPHY - BILATERAL SCREENING REASON FOR EXAM: Female, 73 years old. Routine annual screening examination. PERTINENT HISTORY: Sister with breast cancer. Aunt with breast cancer. TECHNIQUE: Digital bilateral breast joaquín (3D mammographic acquisition) in the CC and MLO projections. 2-D mediolateral oblique (MLO) and craniocaudad (CC) views of both breasts were obtained. CAD: Full Field Digital Mammography with Computer Added Detection was performed. COMPARISON: Comparison is made with prior study June 14, 2022 and May 08, 2021. FINDINGS: Breast Composition: The breasts are almost entirely fatty. There are no dominant masses or suspicious calcifications. Stable small benign appearing bilateral axillary lymph nodes. No other significant abnormalities are identified. There has been no significant change since the prior study. BI/SCRN MAMM (CAD)W/JOAQUÍN BILAT IMPRESSION: Stable bilateral screening mammogram. Yearly follow-up mammogram recommended. (A) ASSESSMENT CATEGORY: BIRADS Category 2: Benign. A letter regarding these results will be sent to the patient by the facility within 30 days. Approximately 10% of breast cancers are not detected by mammography. A normal mammogram should not delay biopsy of a clinically suspicious abnormality. [id number] Electronically Signed: Richard Doe MD at 13:36 EDT ,
== END | disposition home or self-care (01) ==
LOC: OPBI 12:51
PROVIDERS: PCP Family Medicine; Referring Provider Family Medicine; Visit Provider Family Medicine
DX: Z12.31 Encounter for screening mammogram for malignant neoplasm of breast (principal); Z80.3 Family history of malignant neoplasm of breast
CPT/HCPCS: 77063; 77067

== ENCOUNTER → 2023-06-20 | Outpatient (CLI) | payer MEDICARE, OTHER, SELFPAY ==
[2023-06-20 12:30] VITALS: PULSE 114; PULSE 120; PULSE 123; PULSE 124; PULSE 129; PULSE 83; PULSE 86; PULSE 92; O2SAT 91; O2SAT 92; O2SAT 96; O2SAT 97
--- NOTE | 2023-06-21 10:59 | PCM.PSN.6M ---
PSN 6 Minute Walk Test 6 Minute Walk Test 6 Minute Walk Test: 6 Minute Walk Test PSN:6-Minute Walk Test Start: 06/20/23 13:19 Freq: Status: Active Protocol: RESP.6MINW Document 06/20/23 12:30 CHLOELORNA (Rec: 06/20/23 13:23 [place] [id number]) 6 Minute Walk Test Date Performed 06/20/23 Time Performed 12:30 Height 5 ft 2.5 in Weight: 216 lb Weight in Pounds 216.[address]: Sriram Avalos Assistive device used: None Pre-test Oxygen Delivery Method Room Air Pulse Ox 97 Pulse Rate (60-100) 83 Dyspnea Elan Scale (0-10) 0 Exertion Elan Scale (6-20) 6 1st minute Oxygen Delivery Method Room Air Pulse Ox 96 Pulse Rate (60-100) 92 2nd minute Oxygen Delivery Method Room Air Pulse Ox 92 Pulse Rate (60-100) 120 H 3rd minute Oxygen Delivery Method Room Air Pulse Ox 91 Pulse Rate (60-100) 114 H 4th minute Oxygen Delivery Method Room Air Pulse Ox 91 Pulse Rate (60-100) 123 H 5th minute Oxygen Delivery Method Room Air Pulse Ox 91 Pulse Rate (60-100) 124 H 6th minute Oxygen Delivery Method Room Air Pulse Ox 92 Pulse Rate (60-100) 129 H Dyspnea Elan Scale (0-10) 4 Exertion Elan Scale (6-20) 13 Post-test Oxygen Delivery Method Room Air Pulse Ox 96 Pulse Rate (60-100) 86 Full Laps Walked 16 Partial Lap, Number of Tiles Walked 21 Total Distance Walked (ft) 965 Interpretation Interpretation: The patient ambulated 965 feet over the course of 6 minutes beginning on room air without assistive devices. Pretesting oxygen saturation was noted to be 97% on room air. With ambulation, the nitin oxygen saturation was 91%. This represents a significant exertional oxygen desaturation. Recommendations Recommendations: There is no indication for the use of supplemental oxygen at this time. However, post interval follow-up was recommended, given the degree of oxygen desaturation noted during this study.
== END | disposition home or self-care (01) ==
LOC: PSN 12:22
PROVIDERS: PCP Family Medicine; Referring Provider Internal Medicine Critical Care Medicine; Visit Provider Internal Medicine Critical Care Medicine
DX: R06.09 Other forms of dyspnea (principal)
CPT/HCPCS: 94618

== ENCOUNTER → 2023-08-06 | Outpatient (CLI) | payer MEDICARE, OTHER, SELFPAY ==
[2023-08-06 12:45] VITALS: BP 153/82; PULSE 64; RESP 16; TEMP 36.6; O2SAT 94; BMI 32.9
[2023-08-06 13:07] LABS: Hematocrit 41.2 % (37-47); Hemoglobin 13.4 g/dL (12.0-15.0); Mean Corp Hgb Conc 32.5 g/dL (32-36); Mean Corpuscular Hgb 29.2 pg (27.0-32.0); Mean Corpuscular Volume 89.8 fL (81-99); Mean Platelet Vol. 9.5 fl (6.2-12.0); Platelet Count 284 K/mm3 (150-450); RBC Distribution Width CV 13.4 % (11.6-14.6); RBC Distribution Width SD 43.8 fl (35.1-43.9); Red Blood Count 4.59 M/mm3 (4.2-5.4); White Blood Count 7.3 K/mm3 (4.4-11.0)
[2023-08-06 13:11] LABS: CREATININE FINGERSTICK < 1.0 mg/dL (0.55-1.02); EGFR FINGERSTICK > 60.0000 mL/min (>60)
[2023-08-06 13:32] LABS: ALB/GLOB Ratio 0.9 RATIO (0.9-2.4); AST(SGOT) 12 U/L (15-37); Alanine Aminotransfer ALT/SGPT 16 U/L (13-56); Albumin, Serum 3.3 g/dL (3.2-5.0); Alkaline Phosphatase 46 U/L (45-117); Anion Gap 8 (5-15); BUN 18 mg/dL (7-18); BUN/Creat Ratio 22.2 RATIO (10-20); Calcium,Total 9.1 mg/dL (8.5-10.1); Chloride 100 mmol/L (98-107); Cholesterol 174 mg/dL (200); Creatinine, Serum 0.81 mg/dL (0.55-1.02); EST Glomerular Filtration Rate 74 mL/min (>60); Est Glom Filt Rate - Afr Amer 89 mL/min (>60); Globulin 3.6 g/dL (2.2-4.2); Glucose 174 mg/dL (74-106); High Density Lipoprotein 43 mg/dL; Potassium 3.7 mmol/L (3.5-5.1); Protein, Total 6.9 g/dL (6.4-8.2); Sodium Level 137 mmol/L (136-145); Triglycerides 179 mg/dL; Very Low Density Lipoprotein 36 mg/dL (5-40)
[2023-08-06 13:42] LABS: BNP,B-Type NATRIURETIC PEPTIDE 23.3 pg/mL (0-100)
--- NOTE | 2023-08-06 13:43 | NURSING ---
Pt's HR irregular during check-in process. Rhythm strip printed, unable to do CTA due to heart rhythm. KATIE Harp contacted [facility] to inform them test could not be completed due to irregular heart rhythm. Pt understanding of reasoning that test is unable to be completed.
== END | disposition home or self-care (01) ==
LOC: CT 12:13
PROVIDERS: PCP Family Medicine; Referring Provider Internal Medicine Cardiovascular Disease; Visit Provider Internal Medicine Cardiovascular Disease
DX: R06.02 Shortness of breath (principal); E11.9 Type 2 diabetes mellitus without complications; I10 Essential (primary) hypertension; R07.89 Other chest pain; E78.5 Hyperlipidemia, unspecified
CPT/HCPCS: 36415; 80053; 80061; 83880; 85027

== ENCOUNTER → 2023-08-14 | Outpatient (CLI) | payer MEDICARE, OTHER, SELFPAY | END | disposition home or self-care (01) | LOC: PSN 07:54 | PROVIDERS: PCP Family Medicine; Referring Provider Nurse Practitioner Gerontology; Visit Provider Nurse Practitioner Gerontology | DX: I49.9 Cardiac arrhythmia, unspecified (principal) | CPT/HCPCS: 93225; 93226 ==

== ENCOUNTER 2023-11-25 16:49 | Inpatient (IN) | payer MEDICARE, OTHER, SELFPAY ==
[2023-11-25] VITALS (9 sets, daily range): BP systolic 159–217; BP diastolic 84–133; PULSE 73–100; RESP 12–23; TEMP 36.2–36.8; O2SAT 92–100; BMI 40.1; BMI 40.3; BMI 39.6
--- NOTE | 2023-11-25 16:57 | CT_ITS ---
INDICATION: Neuro deficit, acute, stroke suspected EXAMINATION: CT BRAIN - CT Head Stroke Protocol W/O Contrast Injection TECHNIQUE: Multiple axial images were obtained of the head without intravenous contrast. The protocol utilizes one or more of the following dose reduction techniques: automated exposure control, adjustment of mA and/or kV according to patient size,and/or use of iterative reconstruction technique. IV Contrast dosage and agent: None. COMPARISON: No relevant prior comparison study available FINDINGS: BRAIN PARENCHYMA: No intra- or extra-axial hemorrhage. No evidence of acute infarct. No intracranial mass or mass effect. There is preservation of the huddleston/white matter interface. Incidental 8 mm right neuroepithelial cyst of the hippocampal fissure. Posterior fossa structures are unremarkable. CSF SPACES: Appropriate for age. No hydrocephalus. Basal cisterns are patent. CALVARIUM, SKULL BASE, PARANASAL SINUSES AND MASTOID AIR CELLS: Clear. No discrete lytic or blastic abnormalities. ORBITS: Both globes, extraocular muscles, optic nerves and retrobulbar fat appear unremarkable. ASPECTS Score for Acute Strokes: 10 CT/STROKE Brain/Head without Cont IMPRESSION: Negative Brain CT without contrast. N.B. : The above Results were Read Back by Morro Rader MD to Taran Bruce DO, and understanding confirmed on 11/25/2023 17:15:08 (ET). Electronically Signed: Morro Rader MD at 17:17 EDT ,
--- NOTE | 2023-11-25 16:57 | EKG12_ITS ---
Test Reason : STROKE TEAM Blood Pressure : / mmHG Vent. Rate : 080 BPM Atrial Rate : 080 BPM P-R Int : 000 ms QRS Dur : 076 ms QT Int : 388 ms P-R-T Axes : 000 005 039 degrees QTc Int : 447 ms Normal sinus rhythm with PAC's Nonspecific T wave abnormality Abnormal ECG Confirmed by AMANDA ARCEO, COLLIN ([id number]), society editor IAM RIVERO ([id number]) on 11/26/2023 7:41:55 AM Referred By: Confirmed By:COLLIN PATEL MD
--- NOTE | 2023-11-25 16:58 | CT_ITS ---
All STUDY: CTA HEAD AND NECK WITH CONTRAST REASON FOR EXAM: Female, 73 years old. Neuro deficit, acute, stroke suspected RADIATION DOSAGE (If Supplied By Facility): CTDIvol = ( 16.74 ) mGy, DLP = ( 947.11 ) mGycm TECHNIQUE: CT angiography was performed with a multi-detector CT scanner. Data acquisition was obtained from the skull base through the vertex following intravenous administration of IV 100mL Isovue-370. MIP images were reconstructed from the axial data set. Post-processing of the angiographic images was performed, with multiplanar reformation and 3D reconstruction. Individualized dose optimization techniques were used for this CT. COMPARISON: No relevant priors. FINDINGS: Normal bilateral petrous carotid arteries. Normal right cavernous carotid artery with a normal supraclinoid bifurcation. Normal left cavernous carotid artery with a normal supraclinoid bifurcation. Normal right A1 segments of the anterior cerebral artery. Normal left A1 segments of the anterior cerebral artery. Normal intact anterior communicating artery (ACOM). Normal bilateral A2 segments of the anterior cerebral arteries. Normal right M1 and M2 segments of the middle cerebral arteries, with a normal M1 bifurcation. Normal left M1 and M2 segments of the middle cerebral arteries, with a normal M1 bifurcation. Normal right posterior communicating artery (PCOM). Normal left posterior communicating artery (PCOM). Normal bilateral vertebral arteries. Normal basilar artery with a normal basilar bifurcation. The visualized bilateral superior cerebellar (SCA) arteries are normal. Normal bilateral P1, P2 and visualized P3 segments of the posterior cerebral arteries. There is no demonstrated aneurysm of the [place]. There is no demonstrated abnormality of the visualized brain. AORTIC ARCH: Normal visualized aortic arch. Normal origins of the brachiocephalic, left common carotid, and left subclavian arteries. RIGHT CAROTID ARTERIES: There is atherosclerotic tortuous elongation of the right common carotid artery. Normal right common carotid bulb. Normal origin of the right internal carotid (ICA) artery without a hemodynamically significant stenosis. There is atherosclerotic tortuous elongation of the cervical portion of the right internal carotid artery. Normal origin of the right external carotid artery (ECA). LEFT CAROTID ARTERIES: There is atherosclerotic tortuous elongation of the left common carotid artery. Normal left common carotid bulb. Normal origin of the left internal carotid (ICA) artery without a hemodynamically significant stenosis. There is atherosclerotic tortuous elongation of the cervical portion of the left internal carotid artery. Normal origin of the left external carotid artery (ECA). VERTEBRAL ARTERIES: Normal bilateral vertebral arteries. CT/STROKE CTA Head AND Neck W/Con IMPRESSION: No acute abnormality. No large vessel occlusion. No hemodynamically significant stenosis. Tortuous carotid arteries. N.B. : The above Results were Read Back by Morro Rader MD to Taran Bruce DO, and understanding confirmed on 11/25/2023 17:38:46 (ET). Electronically Signed: Morro Rader MD at 17:38 EDT ,
--- NOTE | 2023-11-25 16:58 | ED.VIS.STROK ---
HPI History of Present Illness Chief Complaint: Neuro S/Sx Informant: patient and family Narrative Narrative: Brought in by daughter for not acting right and not remembering things. Patient lives with her mother, she reports she had appointment to get her hair done at 1230 however she was late. Daughter here present states she got a text from her mother around 415 which noted to be off. She brought her here, is currently 1700. Patient with no stroke history. Hypertension, hyperlipidemia, diabetes. Prior similar symptoms: No PFSH PFSH Medical History PAC (premature atrial contraction) Dyspnea on exertion Chest pressure Vitamin B12 deficiency PVC (premature ventricular contraction) Chronic dyspnea Liver fibrosis Post-menopausal Alcohol use High cholesterol BiPAP (biphasic positive airway pressure) dependence DM type 2, goal HbA1c < 7% Recent weight loss Family history of breast cancer Intertrigo Left shoulder pain Right shoulder pain Chronic thoracic back pain Chronic neck pain Macromastia Gallstones Cataracts, bilateral Back problem Sleep apnea CLARY (obstructive sleep apnea) Tubular adenoma of colon P-ANCA titer positive Diverticular disease NAFLD (nonalcoholic fatty liver disease) Wears glasses Low iron Dietary restriction Difficulty swallowing History of hiatal hernia History of diverticulitis Shortness of breath on exertion History of edema History of echocardiogram History of stress test History of irregular heartbeat CPAP (continuous positive airway pressure) dependence Fatty liver Angioedema Vitamin D deficiency Nausea Heartburn Early satiety Diarrhea Anxiety Phantosmia Hypokalemia Hyperlipidemia Functional dyspepsia Obesity SOB (shortness of breath) Depression Diabetes GERD (gastroesophageal reflux disease) Non-smoker Sleep apnea Hypertension Morbid obesity Severe tongue swelling Home Medications ?Medication ?Instructions ?Recorded ?Last Taken ?Type pravastatin 20 mg tablet 20 mg PO DAILY cholesterol 10/20/17 10/21/20 History vitamin E mixed 400 unit capsule 800 unit PO HS 01/24/22 Unknown History hydrochlorothiazide 25 mg tablet 25 mg PO DAILY 01/23/23 Unknown History potassium chloride 20 mEq 20 meq PO DAILY 01/23/23 Unknown History tablet,extended release(part/cryst) (Klor-Con M) venlafaxine 75 mg capsule,extended 75 mg PO DAILY 01/23/23 Unknown History release 24 hr glipizide 5 mg tablet 10 mg PO .AM 03/22/23 Unknown History metformin 500 mg tablet 500 mg PO 4X/DAY 03/22/23 Unknown History clonidine HCl 0.1 mg tablet 0.1 mg PO BID bp 04/10/23 Unknown History metoprolol succinate 50 mg 50 mg PO DAILY 11/25/23 Unknown History tablet,extended release 24 hr Allergy/AdvReac Type Severity Reaction Status Date / Time aspirin Allergy Severe Tongue Verified 11/25/23 17:03 Swelling lisinopril Allergy Angioedema Verified 11/25/23 17:03 Family History Mother Myocardial infarction Abnormality of hormone Father Hypertension Cancer skin Sister Breast cancer Daughter History of blood clots Surgical History History of esophagogastroduodenoscopy (EGD) History of cataract surgery (~02/2021) History of tubal ligation Hx of colonoscopy History of tonsillectomy and adenoidectomy History of cholecystectomy History of appendectomy Social History Smoking Status: Former smoker alcohol intake: current alcohol intake frequency: holidays/special occasions only substance use type: does not use caffeine: Yes (diet pop) Type: carbonated beverages additional social history: Does Not Take Aspirin Does Take Ibuprofen As Needed ROS ROS ED Constitutional Constitutional ED: Denies chills, fever(s) or sweats Eyes Eyes: Denies change in vision ENT ENT ED: Denies dysphagia or sore throat Cardiovascular Cardiovascular: Denies chest pain, leg edema, palpitations or racing heartbeat Respiratory/Chest Respiratory/Chest: Denies cough, dyspnea or dyspnea on exertion Gastrointestinal Gastrointestinal: Denies abdominal pain, diarrhea, nausea or vomiting Genitourinary Genitourinary ED: Denies dysuria, hematuria or urinary frequency Musculoskeletal Musculoskeletal: Denies back pain, extremity pain or neck pain Integumentary Denies rash or wounds Neurologic Neurologic: Reports headache(s) and other Details: Receptive dysphagia ; Denies paresthesias or weakness EXAM Physical Exam Const Vital Signs: 11/25/23 16:50 11/25/23 17:20 11/25/23 17:23 Temperature 97.2 F L Temperature Source Temporal Pulse Rate 100 90 Respiratory Rate 16 12 Blood Pressure 217/133 H 181/92 H Blood Pressure Mean 161 121 Pulse Ox 100 94 Oxygen Delivery Method Room Air Room Air Room Air 11/25/23 17:30 11/25/23 18:00 Temperature Temperature Source Pulse Rate 80 75 Respiratory Rate 23 H 20 H Blood Pressure 178/106 H 190/99 H Blood Pressure Mean 130 129 Pulse Ox 93 93 Oxygen Delivery Method Room Air Room Air Positive well nourished and well developed General Appearance ED: well developed and NAD HEENT Reports moist mucous membranes normocephalic and atraumatic Eyes EOMs intact bilaterally and conjunctivae normal General Eye ED: Yes normal appearance of both eyes Neck no lymphadenopathy and supple General: Negative for tenderness Chest Wall Chest: Negative for tenderness Resp normal respiratory effort and normal air movement Effort and Inspection: symmetric chest movement; Negative for respiratory distress Cardio regular rate, regular rhythm and no murmurs Peripheral Pulses: pulses 2+ throughout GI normal to inspection, nondistended, normoactive bowel sounds and non-tender Palpation: Negative for guarding or rebound tenderness present Back/Spine no CVA tenderness and no thoracic nor lumbar tenderness Extremity normal to inspection General Extremety ED: Negative for edema or tenderness General Extremity: Negative for edema Neuro oriented x3 and no sensory deficits noted Neuro Narrative: NIH of 3 for slight left lip droop, left upper extremity ataxia, receptive dysphagia. Sensorium / Orientation: awake and alert Skin no rashes or lesions noted and no wounds NIHSS NIHSS Initial: 1a Level of Consciousness: 0 1b LOC Questions (Score 2 if aphasic/stupor): 0 1c LOC Commands (Only score 1st attempt): 0 2 Best Gaze (If aphasic, use reflexive mvmts.): 0 3 Visual: 0 4 Facial Palsy: 1 5 Motor Arm Right (UN = amputation/fusion): 0 5 Motor Arm Left: 0 6 Motor Leg Right: 0 6 Motor Leg Left: 0 7 Limb ataxia (Only + if out of proportion): 1 8 Sensory (Aphasia/stupor=0 or 1, coma=2): 0 9 Best Language: 0 10 Dysarthria (mute, coma=2, intubated=UN): 1 11 Extinction and Inattention (only scored if +): 0 Total Score: 3 MDM MDM MDM Narrative Medical decision making narrative: Interventions / MDM: Differential diagnosis: Acute CVA, dysphasia Diagnosis considered but do not suspect: N/A My EKG interpretation: Indeterminate rhythm electronically however my review tenderness for possible Mobitz 1 block rate of 80. Comparison EKG March 2023 was similar read as frequent PACs. Imaging independently reviewed and interpreted by myself: CT brain: No acute process. CT angiogram head and neck: No acute process in discussion with radiologist. 1 view chest x-ray: No acute process. External documents reviewed: N/A Test considered but not ordered:N/A ED course: Patient has an NIH of 3, unclear exactly her last well time. Daughter will call her grandmother who was at home with the patient, she had her appointment at 1230 for which she states she was late. Stroke team was activated in the meantime with CT head and CT angiogram as she is within the 24-hour window. Blood glucose 221. 1720: CT brain discussion with radiologist negative. Repeat NIH is a 1 for very minimal left lip droop. 1735: Discussion with stroke neurologist on color television console monitor Dr. Llamas, symptoms resolved for him. He is concern for possible cortical region for stroke not seen on CT's. Discussing with radiologist on CT angiogram also negative. Patient allergic to aspirin he recommended loading with Plavix at 300 mg along with stroke workup in the hospital. I discussed with hospitalist Dr. Cedeño for admission to PCU. EKG noting possible Mobitz 1 block versus frequent PACs with similar findings on her EKG in March 2023. Re-evaluation: stable Disposition discussed with patient/family/significant other: Patient and daughter Case discussed with consulting clinician: Telemetry stroke neurologist, hospitalist This note was generated with [employer] dictation software. It may contain incorrect words, spelling, and punctuation that were not noted in checking the note before signing. Lab Data Attestation: I reviewed the patient's lab results. Labs: Laboratory Results - last 24 hr 11/25/23 11/25/23 16:54 17:15 WBC 10.9 RBC 4.73 Hgb 13.7 Hct 41.7 MCV 88.2 MCH 29.0 MCHC 32.9 RDW Std Deviation 42.7 RDW Coeff of Leonora 13.2 Plt Count 325 MPV 9.9 Immature Gran % (Auto) 0.600 Neut % (Auto) 64.5 Lymph % (Auto) 23.4 [place] % (Auto) 8.5 Eos % (Auto) 2.0 Baso % (Auto) 1.0 Absolute Neuts (auto) 7.0 Absolute Lymphs (auto) 2.55 Nucleated RBC % 0 PT 13.3 INR 1.0 APTT 31.1 Sodium 137 Potassium 3.4 L Chloride 100 Carbon Dioxide 32.0 Anion Gap 5 BUN 13 Creatinine 0.93 Estim Creat Clear Calc 58.51 Est GFR (MDRD) Af Amer 76 Est GFR (MDRD) Non-Af 63 BUN/Creatinine Ratio 14.0 Glucose 225 H Calcium 9.5 Troponin I High Sens 7 POC Glucose 221 H Radiography Diagnostic Testing: Clinical Impression(s) from Imaging Studies Brain CT 11/25/23 16:57 IMPRESSION: Negative Brain CT without contrast. N.B. : The above Results were Read Back by Morro Rader MD to Taran Bruce DO, and understanding confirmed on 11/25/2023 17:15:08 (ET). Electronically Signed: Morro Rader MD at 17:17 EDT Reading Location ID and State: [facility] / [place] , Service support , ADDENDUM: 11/25/23 1724 IMPRESSION: Negative Brain CT without contrast. N.B. : The above Results were Read Back by Morro Rader MD to Taran Bruce DO, and understanding confirmed on 11/25/2023 17:15:08 (ET). Electronically Signed: Morro Rader MD at 17:17 EDT Reading Location ID and State: [facility] / [place] , Service support , Head/Neck CTA 11/25/23 16:58 IMPRESSION: No acute abnormality. No large vessel occlusion. No hemodynamically significant stenosis. Tortuous carotid arteries. N.B. : The above Results were Read Back by Morro Rader MD to Taran Bruce DO and richa confirmed on 11/25/2023 17:38:46 (ET). Electronically Signed: Morro Rader MD at 17:38 EDT , ADDENDUM: 11/25/23 1745 IMPRESSION: No acute abnormality. No large vessel occlusion. No hemodynamically significant stenosis. Tortuous carotid arteries. N.B. : The above Results were Read Back by Morro Rader MD to Taran Bruce DO, and understanding confirmed on 11/25/2023 17:38:46 (ET). Electronically Signed: Morro Rader MD at 17:38 EDT , Chest X-Ray 11/25/23 17:42 IMPRESSION: Mild diffuse interstitial prominence consistent with mild fibrosis also present previously. No definite acute abnormalities. Electronically Signed: Morro Rader MD at 18:56 EDT , Stroke Documentation Questions Stroke Team Activated: Yes Reviewed Inclusion/Exclusion criteria: Yes Was Patient considered for Endovascular Intervention?: No-CTA negative, determined not to be an endovascular candidate IV Thrombolytic Administered: No Critical Care Time Critical Care Time: Yes Critical care time (excluding procedures): 30-74 minutes, Discussing w/Patient &/or Family/Customer Acquisition Manager, Discussing w/Consultants, Arranging Admission or Transfer, Performing Direct Patient Care at Bedside and - (31 minutes) Discharge Plan Dx/Rx/DC Orders Clinical Impression: Acute cerebrovascular accident (CVA), Dysphasia, Ataxia Disposition Disposition: Acute Care Hospital [facility] Discharge Date/Time: 11/25/23 20:09
[2023-11-25 17:13] LABS: Bedside Glucose 221 mg/dL (74-106)
[2023-11-25 17:37] LABS: Absolute Lymphocyte Count 2.55 X10^3/uL (0.83-4.51); Basophil# 0.11 X10^3/uL; Eosinophil# 0.22 X10^3/uL; Hematocrit 41.7 % (37-47); Hemoglobin 13.7 g/dL (12.0-15.0); Lymphocyte # 2.55 X10^3/ul (0.83-4.51); Lymphocyte % 23.4 % (19-41); Mean Corp Hgb Conc 32.9 g/dL (32-36); Mean Corpuscular Volume 88.2 fL (81-99); Mean Platelet Vol. 9.9 fl (6.2-12.0); Monocyte# 0.93 X10^3/uL; Monocyte% 8.5 % (0-10); NRBC Flagged by Analyzer 0 % (0-5); Neutrophil # 7.03 X10^3/uL (2.7-7.7); Neutrophil % 64.5 % (47-70); Platelet Count 325 K/mm3 (150-450); RBC Distribution Width CV 13.2 % (11.6-14.6); RBC Distribution Width SD 42.7 fl (35.1-43.9); Red Blood Count 4.73 M/mm3 (4.2-5.4); White Blood Count 10.9 K/mm3 (4.4-11.0)
--- NOTE | 2023-11-25 17:42 | RAD_ITS ---
STUDY: X-RAY CHEST REASON FOR EXAM: Female, 73 years old. Neuro deficit, acute, stroke suspected TECHNIQUE: Single AP portable view of the chest. COMPARISON: CT scan 08/28/2021. FINDINGS: Moderate lung volumes. Mild diffuse interstitial prominence consistent with mild fibrosis also present previously. No focal infiltrates. No gross effusions. Normal size heart. Normal mediastinum and jenae. Normal visualized pulmonary arteries. Normal visualized aortic arch and descending thoracic aorta. Normal visualized thoracic spine. There is degenerative osteoarthritis of the bilateral shoulders. There is no demonstrated abnormality of the visualized soft tissue structures of the upper abdomen. RAD/Chest 1 View IMPRESSION: Mild diffuse interstitial prominence consistent with mild fibrosis also present previously. No definite acute abnormalities. Electronically Signed: Morro Rader MD at 18:56 EDT ,
[2023-11-25 17:55] LABS: Partial Thromboplast Time 31.1 Seconds (24.1-36.2); Prothrombin Time (Protime)PT. 13.3 SECONDS (11.7-14.9)
[2023-11-25 18:01] LABS: Anion Gap 5 (5-15); BUN 13 mg/dL (7-18); Calcium,Total 9.5 mg/dL (8.5-10.1); Chloride 100 mmol/L (98-107); Creatinine, Serum 0.93 mg/dL (0.55-1.02); EST Glomerular Filtration Rate 63 mL/min (>60); Est Glom Filt Rate - Afr Amer 76 mL/min (>60); Estimated Creatinine Clearance 58.51 ml/min; Glucose 225 mg/dL (74-106); Potassium 3.4 mmol/L (3.5-5.1); Sodium Level 137 mmol/L (136-145); Troponin-I HS 7 pg/mL (3.0-54.0)
[2023-11-25] MEDS: Clopidogrel Bisulfate 300 MG Tablet PO (18:12)
--- NOTE | 2023-11-25 18:12 | HP.PCM.HOS_ITS ---
HPI - General General Date of Admission: 11/25/23 HPI Narrative VARGAS RODRIGUEZ, is a 73 F who presents to the hospital with word finding issues and aphasia. This started today and she had difficulty both remembering names as well as writing and reading. She had tried to text her daughter what was going on and that text was very disjointed. In the ER she has an NIH of 0 but she still feels that she has a word finding issues though she says it has been a little bit better. She denies any facial droop or numbness. No upper extremity or lower extremity weakness. No fevers or chills or signs of infection anywhere. [facility] Medical History PAC (premature atrial contraction) Dyspnea on exertion Chest pressure Vitamin B12 deficiency PVC (premature ventricular contraction) Chronic dyspnea Liver fibrosis Post-menopausal Alcohol use High cholesterol BiPAP (biphasic positive airway pressure) dependence DM type 2, goal HbA1c < 7% Recent weight loss Family history of breast cancer Intertrigo Left shoulder pain Right shoulder pain Chronic thoracic back pain Chronic neck pain Macromastia Gallstones Cataracts, bilateral Back problem Sleep apnea CLARY (obstructive sleep apnea) Tubular adenoma of colon P-ANCA titer positive Diverticular disease NAFLD (nonalcoholic fatty liver disease) Wears glasses Low iron Dietary restriction Difficulty swallowing History of hiatal hernia History of diverticulitis Shortness of breath on exertion History of edema History of echocardiogram History of stress test History of irregular heartbeat CPAP (continuous positive airway pressure) dependence Fatty liver Angioedema Vitamin D deficiency Nausea Heartburn Early satiety Diarrhea Anxiety Phantosmia Hypokalemia Hyperlipidemia Functional dyspepsia Obesity SOB (shortness of breath) Depression Diabetes GERD (gastroesophageal reflux disease) Non-smoker Sleep apnea Hypertension Morbid obesity Severe tongue swelling Home Medications ?Medication ?Instructions ?Recorded ?Last Taken ?Type pravastatin 20 mg tablet 20 mg PO DAILY cholesterol 10/20/17 10/21/20 History vitamin E mixed 400 unit capsule 800 unit PO HS 01/24/22 Unknown History hydrochlorothiazide 25 mg tablet 25 mg PO DAILY 01/23/23 Unknown History potassium chloride 20 mEq 20 meq PO DAILY 01/23/23 Unknown History tablet,extended release(part/cryst) (Klor-Con M) venlafaxine 75 mg capsule,extended 75 mg PO DAILY 01/23/23 Unknown History release 24 hr glipizide 5 mg tablet 10 mg PO .AM 03/22/23 Unknown History metformin 500 mg tablet 500 mg PO 4X/DAY 03/22/23 Unknown History clonidine HCl 0.1 mg tablet 0.1 mg PO BID bp 04/10/23 Unknown History metoprolol succinate 50 mg 50 mg PO DAILY 11/25/23 Unknown History tablet,extended release 24 hr Allergy/AdvReac Type Severity Reaction Status Date / Time aspirin Allergy Severe Tongue Verified 11/25/23 17:03 Swelling lisinopril Allergy Angioedema Verified 11/25/23 17:03 Family History Mother Myocardial infarction Abnormality of hormone Father Hypertension Cancer skin Sister Breast cancer Daughter History of blood clots Surgical History History of esophagogastroduodenoscopy (EGD) History of cataract surgery (~02/2021) History of tubal ligation Hx of colonoscopy History of tonsillectomy and adenoidectomy History of cholecystectomy History of appendectomy Social History Smoking Status: Never smoker alcohol intake: current alcohol intake frequency: holidays/special occasions only substance use type: does not use caffeine: Yes (diet pop) Type: carbonated beverages additional social history: Does Not Take Aspirin Does Take Ibuprofen As Needed ROS Constitutional Constitutional: Denies chills, fatigue, fever(s) or malaise Eyes Eyes: Denies blurry vision ENT HEENT: Denies headache(s) or nasal discharge Cardiovascular Cardiovascular: Denies chest pain, dyspnea on exertion or syncope Respiratory/Chest Respiratory/Chest: Denies cough, shortness of breath at rest or shortness of breath with exertion Gastrointestinal Gastrointestinal: Denies constipation, diarrhea, nausea or vomiting Genitourinary Genitourinary: Denies dysuria Neurologic Neurologic: Reports abnormal speech; Denies focal weakness, numbness or tremor(s) Psychiatric Psychiatric: Denies anxiety or depression Vital Signs Vital Signs Vital Signs: 11/25/23 16:50 11/25/23 17:20 11/25/23 17:23 Temperature 97.2 F L Temperature Source Temporal Pulse Rate 100 90 Respiratory Rate 16 12 Blood Pressure 217/133 H 181/92 H Blood Pressure Mean 161 121 Pulse Ox 100 94 Oxygen Delivery Method Room Air Room Air Room Air 11/25/23 17:30 11/25/23 18:00 Temperature Temperature Source Pulse Rate 80 75 Respiratory Rate 23 H 20 H Blood Pressure 178/106 H 190/99 H Blood Pressure Mean 130 129 Pulse Ox 93 93 Oxygen Delivery Method Room Air Room Air Weight Weight: 219 lb 3.2 oz Body Mass Index (BMI) 40.1 Physical Exam Narrative General: Alert, Oriented x3, Cooperative, No apparent distress HEENT: Atraumatic, PERRLA, EOMI, Normocephalic Oral: Moist Mucosa Neck: Supple, No JVD Lungs: Diminished, Normal air movement, No rhonchi, No wheeze, No rales Cardiovascular: Regular rate, Regular Rhythm, Normal S1, Normal S2, No murmurs Abdomen: Soft, Non Tender, Non-Distended, No Hepato-splenomegaly Extremities: No edema, Capillary Refill Less than 3 Seconds Skin: No rashes, No breakdown Musculoskeletal: No Tenderness to Palpation of Joints or Extremities Neurological: No focal neurological deficits, Motor Exam 5/5 strength throughout, Sensory exam intact to light touch and pain, NIH of 0 Psych/Mental Status: Normal Affect, Appropriate Results Lab / Micro Data 11/25/23 17:15 11/25/23 17:15 Labs: Laboratory Results - last 24 hr 11/25/23 16:54: POC Glucose 221 H 11/25/23 17:15: WBC 10.9, RBC 4.73, Hgb 13.7, Hct 41.7, MCV 88.2, MCH 29.0, MCHC 32.9, RDW Std Deviation 42.7, RDW Coeff of Leonora 13.2, Plt Count 325, MPV 9.9, Immature Gran % (Auto) 0.600, Neut % (Auto) 64.5, Lymph % (Auto) 23.4, [place] % (Auto) 8.5, Eos % (Auto) 2.0, Baso % (Auto) 1.0, Absolute Neuts (auto) 7.0, Absolute Lymphs (auto) 2.55, Nucleated RBC % 0, PT 13.3, INR 1.0, APTT 31.1, Sodium 137, Potassium 3.4 L, Chloride 100, Carbon Dioxide 32.0, Anion Gap 5, BUN 13, Creatinine 0.93, Estim Creat Clear Calc 58.51, Est GFR (MDRD) Af Amer 76, Est GFR (MDRD) Non-Af 63, BUN/Creatinine Ratio 14.0, Glucose 225 H, Calcium 9.5, Troponin I High Sens 7 Imaging Radiology Impression Brain CT 11/25/23 16:57 IMPRESSION: Negative Brain CT without contrast. N.B. : The above Results were Read Back by Morro Rader MD to Taran Bruce DO, and understanding confirmed on 11/25/2023 17:15:08 (ET). Electronically Signed: Morro Rader MD at 17:17 EDT , ADDENDUM: 11/25/23 1724 IMPRESSION: Negative Brain CT without contrast. N.B. : The above Results were Read Back by Morro Rader MD to Taran Bruce DO, and understanding confirmed on 11/25/2023 17:15:08 (ET). Electronically Signed: Morro Rader MD at 17:17 EDT Reading Location ID and State: [facility] / [place] , Service support , Head/Neck CTA 11/25/23 16:58 IMPRESSION: No acute abnormality. No large vessel occlusion. No hemodynamically significant stenosis. Tortuous carotid arteries. N.B. : The above Results were Read Back by Morro Rader MD to Taran Bruce DO and understanding confirmed on 11/25/2023 17:38:46 (ET). Electronically Signed: Morro Rader MD at 17:38 EDT , ADDENDUM: 11/25/23 1745 IMPRESSION: No acute abnormality. No large vessel occlusion. No hemodynamically significant stenosis. Tortuous carotid arteries. N.B. : The above Results were Read Back by Morro Rader MD to Taran Bruce DO, and understanding confirmed on 11/25/2023 17:38:46 (ET). Electronically Signed: Morro Rader MD at 17:38 EDT , Assessment & Plan Assessment/Plan (1) CVA (cerebral vascular accident): PLAN: Plan 1. CVA versus TIA ? Symptoms are resolving and her NIH is 0 ? Will obtain an MRI and continue stroke workup ? Allow permissive hypertension as needed hydralazine and labetalol per stroke protocol open ordered ? Continue with high-dose statin ? She is allergic to aspirin which she did receive the 300 mg loading dose of Plavix and will continue with daily dosing ? She had not echo back in April, will obtain a limited echo for bubble study on this admission 2. Essential HTN/HLD/PACs ? She has had extensive Holter monitoring as well as echocardiograms for her extra heartbeat felt to be a PAC ? Continue telemetry ? Will hold her clonidine as well as hydrochlorothiazide, metoprolol to allow for permissive hypertension for 24 hours ? Will transition her pravastatin to Lipitor ? She has angioedema with aspirin 3. DM2 ? Will hold her home medications ? Sign scale insulin ? Accu-Cheks ACHS ? Will monitor make adjustments as necessary 4. Anxiety/depression ? Stable ? Continue with Effexor DVT: Lovenox 75 minutes was spent on direct patient care, including documentation as well as chart review and collaboration with colleagues Charges/Coding Visit Charges Inpatient E&M: 61407 Init Hosp L3
--- NOTE | 2023-11-25 18:12 | ED.RN ---
Nihss to be completed only every 4hrs in ED per ED MD
[2023-11-25] MEDS: Morphine 2 MG/ML Syringe IV (22:18)
[2023-11-25 23:04] LABS: Bedside Glucose 128 mg/dL (74-106)
[2023-11-26] VITALS: BP 154/118; PULSE 79; RESP 16; TEMP 36.3; O2SAT 95
[2023-11-26 01:09] VITALS: BMI 39.6
[2023-11-26 01:14] VITALS: BMI 39.6
[2023-11-26 04:00] VITALS: BP 195/89; PULSE 76; RESP 16; TEMP 36.4; O2SAT 96
[2023-11-26 06:42] LABS: Bedside Glucose 192 mg/dL (74-106)
[2023-11-26] MEDS: Insulin Lispro 100 UNIT/ML INSULN.PEN SC ×2 (07:01→11:21)
[2023-11-26 07:02] LABS: Absolute Lymphocyte Count 2.08 X10^3/uL (0.83-4.51); Basophil# 0.07 X10^3/uL; Basophil% 0.7 % (0-1); Eosinophil# 0.11 X10^3/uL; Eosinophils% 1.1 % (0-5); Hemoglobin 13.4 g/dL (12.0-15.0); Lymphocyte # 2.08 X10^3/ul (0.83-4.51); Lymphocyte % 20.7 % (19-41); Mean Corp Hgb Conc 33.5 g/dL (32-36); Mean Corpuscular Hgb 29.3 pg (27.0-32.0); Mean Corpuscular Volume 87.3 fL (81-99); Mean Platelet Vol. 9.6 fl (6.2-12.0); Monocyte# 0.76 X10^3/uL; Monocyte% 7.6 % (0-10); NRBC Flagged by Analyzer 0 % (0-5); Neutrophil # 6.99 X10^3/uL (2.7-7.7); Neutrophil % 69.4 % (47-70); Platelet Count 298 K/mm3 (150-450); RBC Distribution Width CV 13.2 % (11.6-14.6); RBC Distribution Width SD 41.5 fl (35.1-43.9); Red Blood Count 4.58 M/mm3 (4.2-5.4); White Blood Count 10.1 K/mm3 (4.4-11.0)
[2023-11-26 07:37] LABS: Anion Gap 8 (5-15); BUN 11 mg/dL (7-18); BUN/Creat Ratio 14.9 RATIO (10-20); Calcium,Total 9.1 mg/dL (8.5-10.1); Chloride 98 mmol/L (98-107); Cholesterol 160 mg/dL (200); Creatinine, Serum 0.74 mg/dL (0.55-1.02); EST Glomerular Filtration Rate 82 mL/min (>60); Est Glom Filt Rate - Afr Amer 99 mL/min (>60); Estimated Creatinine Clearance 67.61 ml/min; Glucose 215 mg/dL (74-106); High Density Lipoprotein 51 mg/dL; Potassium 3.6 mmol/L (3.5-5.1); Sodium Level 133 mmol/L (136-145); Triglycerides 108 mg/dL; Very Low Density Lipoprotein 22 mg/dL (5-40)
[2023-11-26 08:00] VITALS: BP 170/99; PULSE 79; RESP 16; TEMP 36.6; O2SAT 94
[2023-11-26] MEDS: Clopidogrel Bisulfate 75 MG Tablet PO (08:44)
[2023-11-26] MEDS: Venlafaxine XR 75 MG Capsule PO (08:44)
[2023-11-26] MEDS: Enoxaparin 40 MG/0.4 ML Syringe SC (08:44)
--- NOTE | 2023-11-26 09:07 | PCM.PN.HOSP ---
Reason for Visit Reason for Visit: Diagnoses Cerebral infarction, unspecified (11/25/23) Subjective Subjective No further aphasia nor communication. Objective Data Objective Data Vital Signs: Vital Signs Temp Pulse Resp BP Pulse Ox O2 Del Method FiO2 36.6 C 79 16 170/99 H 94 Room Air 21 11/26/23 08:00 11/26/23 08:00 11/26/23 08:00 11/26/23 08:00 11/26/23 08:00 11/26/23 08:00 11/25/23 23:45 Oxygen Delivery Method Room Air Weight: 98.4 kg Body Mass Index (BMI) 39.6 Intake & Output: Intake and Output for Last 24 Hours 11/24/23 11/25/23 11/26/23 23:59 23:59 23:59 Intake Total 100 / 100 0 / 0 Balance 100 / 100 0 / 0 Lab / Micro Data 11/26/23 06:30 11/26/23 06:30 Labs: Laboratory Results - last 24 hr 11/25/23 16:54: POC Glucose 221 H 11/25/23 17:15: WBC 10.9, RBC 4.73, Hgb 13.7, Hct 41.7, MCV 88.2, MCH 29.0, MCHC 32.9, RDW Std Deviation 42.7, RDW Coeff of Leonora 13.2, Plt Count 325, MPV 9.9, Immature Gran % (Auto) 0.600, Neut % (Auto) 64.5, Lymph % (Auto) 23.4, [place] % (Auto) 8.5, Eos % (Auto) 2.0, Baso % (Auto) 1.0, Absolute Neuts (auto) 7.0, Absolute Lymphs (auto) 2.55, Nucleated RBC % 0, PT 13.3, INR 1.0, APTT 31.1, Sodium 137, Potassium 3.4 L, Chloride 100, Carbon Dioxide 32.0, Anion Gap 5, BUN 13, Creatinine 0.93, Estim Creat Clear Calc 58.51, Est GFR (MDRD) Af Amer 76, Est GFR (MDRD) Non-Af 63, BUN/Creatinine Ratio 14.0, Glucose 225 H, Calcium 9.5, Troponin I High Sens 7 11/25/23 22:24: POC Glucose 128 H 11/26/23 06:22: POC Glucose 192 H 11/26/23 06:30: WBC 10.1, RBC 4.58, Hgb 13.4, Hct 40.0, MCV 87.3, MCH 29.3, MCHC 33.5, RDW Std Deviation 41.5, RDW Coeff of Leonora 13.2, Plt Count 298, MPV 9.6, Immature Gran % (Auto) 0.500, Neut % (Auto) 69.4, Lymph % (Auto) 20.7, [place] % (Auto) 7.6, Eos % (Auto) 1.1, Baso % (Auto) 0.7, Absolute Neuts (auto) 7.0, Absolute Lymphs (auto) 2.08, Nucleated RBC % 0, Sodium 133 L, Potassium 3.6, Chloride 98, Carbon Dioxide 27.0, Anion Gap 8, BUN 11, Creatinine 0.74, Estim Creat Clear Calc 67.61, Est GFR (MDRD) Af Amer 99, Est GFR (MDRD) Non-Af 82, BUN/Creatinine Ratio 14.9, Glucose 215 H, Calcium 9.1, Triglycerides 108, Cholesterol 160, LDL Cholesterol 87, VLDL Cholesterol 22, HDL Cholesterol 51 Radiography Diagnostic Testing: Radiology Impression Brain CT 11/25/23 16:57 IMPRESSION: Negative Brain CT without contrast. N.B. : The above Results were Read Back by Morro Rader MD to Taran Bruce DO, and understanding confirmed on 11/25/2023 17:15:08 (ET). Electronically Signed: Morro Rader MD at 17:17 EDT , ADDENDUM: 11/25/23 1724 IMPRESSION: Negative Brain CT without contrast. N.B. : The above Results were Read Back by Morro Rader MD to Taran Bruce DO, and understanding confirmed on 11/25/2023 17:15:08 (ET). Electronically Signed: Morro Rader MD at 17:17 EDT , Head/Neck CTA 11/25/23 16:58 IMPRESSION: No acute abnormality. No large vessel occlusion. No hemodynamically significant stenosis. Tortuous carotid arteries. N.B. : The above Results were Read Back by Morro Rader MD to Taran Bruce DO, and understanding confirmed on 11/25/2023 17:38:46 (ET). Electronically Signed: Morro Rader MD at 17:38 EDT Reading Location ID and State: [facility] / [place] , Service support , ADDENDUM: 11/25/23 1745 IMPRESSION: No acute abnormality. No large vessel occlusion. No hemodynamically significant stenosis. Tortuous carotid arteries. N.B. : The above Results were Read Back by Morro Rader MD to Taran Bruce DO, and understanding confirmed on 11/25/2023 17:38:46 (ET). Electronically Signed: Morro Rader MD at 17:38 EDT Reading Location ID and State: [facility] / [place] , Service support , Chest X-Ray 11/25/23 17:42 IMPRESSION: Mild diffuse interstitial prominence consistent with mild fibrosis also present previously. No definite acute abnormalities. Electronically Signed: Morro Rader MD at 18:56 EDT Reading Location ID and State: [facility] / [place] , Service support , Physical Exam Const alert and no apparent distress HEENT head/scalp atraumatic and moist oral mucous membranes Resp normal respiratory effort, no retractions, no use of accessory muscles and clear to auscultation bilaterally Cardio regular rate, regular rhythm, S1 normal heart sound and S2 normal heart sound GI normal to inspection, nondistended, normoactive bowel sounds, soft to palpation, non-tender and non-distended Extremity normal to inspection Assessment & Plan Assessment/Plan (1) CVA (cerebral vascular accident): PLAN: Plan TIA head CT and CTA H/N, MRI brain negative continue clopidogrel. continue statin. Event monitor. Follow up with neurology as outpt. DC home.
--- NOTE | 2023-11-26 09:11 | ECHOD_ITS ---
Reason For Study: TIA/CVA Procedure This was a 2D Doppler, Color Flow transthoracic echocardiogram. Exam performed portable in patient room. Left Ventricle Normal LV size. Left ventricular systolic function is normal. The left ventricular ejection fraction is 65 %. No regional wall motion abnormalities noted. Right Ventricle Normal RV size. Normal systolic function. Atria Normal left atrium. Normal right atrium. Mitral Valve Normal mitral valve. Tricuspid Valve Normal tricuspid valve. Aortic Valve Trisinus/trileaflet aortic valve. Pulmonic Valve Normal pulmonic valve. Great Vessels Normal aortic root. The pulmonary artery is normal size. Normal inferior vena cava. Pericardium/Pleural No pericardial effusion. MMode/2D Measurements & Calculations LVIDd: 4.8 cm IVSd: 1.2 cm LVOT diam: 2.0 cm LVIDs: 2.5 cm LVPWd: 1.1 cm LVOT area: 3.1 cm2 RVDd: 3.2 cm FS: 48.0 % Ao root diam: 3.0 cm asc Aorta Diam: 3.6 cm LAV(MOD-bp): 48.3 ml LAV(MOD-bp) Indexed: 24.5 ml/m2 LAV(MOD-sp2): 47.7 ml LAV(MOD-sp4): 47.6 ml SV(MOD-sp4): 37.0 ml LVAd ap4: 20.6 cm2 LVAd ap2: 18.9 cm2 LVLd ap4: 6.7 cm LVLd ap2: 6.7 cm EDV(MOD-sp4): 51.8 ml EDV(MOD-sp2): 45.5 ml EDV(sp4-el): 54.1 ml EDV(sp2-el): 45.2 ml LVAs ap4: 9.2 cm2 LVAs ap2: 8.8 cm2 LVLs ap4: 5.6 cm LVLs ap2: 5.2 cm ESV(MOD-sp4): 14.8 ml ESV(MOD-sp2): 13.1 ml ESV(sp4-el): 13.0 ml ESV(sp2-el): 12.7 ml EF(MOD-sp4): 71.4 % EF(MOD-sp2): 71.3 % EF(sp4-el): 76.0 % SV(MOD-sp2): 32.4 ml SV(sp4-el): 41.[address] Junction: 2.7 cm LA A4 area: 18.1 cm2 LA dimension(2D): 4.2 cm RA A4 area: 12.5 cm2 TAPSE: 1.7 cm Time Measurements MV dec time: 0.23 sec Doppler Measurements & Calculations MV E max yoel: 56.6 cm/sec Lat Peak E' Yoel: 6.0 cm/sec Med Peak E' Yoel: 6.2 cm/sec MV A max yoel: 77.4 cm/sec E/E' lat: 9.4 E/E' med: 9.1 MV E/A: 0.73 Ao V2 max: 101.4 cm/sec LV V1 max: 94.7 cm/sec MV dec slope: 247.9 cm/sec2 Ao max P.1 mmHg LV V1 max P.6 mmHg Ao V2 mean: 69.0 cm/sec LV V1 mean P.2 mmHg Ao mean P.2 mmHg LV V1 mean: 70.7 cm/sec Ao V2 VTI: 21.5 cm LV V1 VTI: 19.8 cm AV (velocity ratio): 0.92 JEREMIAH(I,D): 2.8 cm2 JEREMIAH(V,D): 2.9 cm2 SV(LVOT): 61.0 ml PA V2 max: 67.8 cm/sec PA max PG (full): 0.15 mmHg ECHO/Echo Complete Interpretation Summary Normal LV size. Left ventricular systolic function is normal. The left ventricular ejection fraction is 65 %. Structurally normal valves. Ordering Physician: Tushar Martinez Referring Physician: Dejuan Chavez Performed By: Sheila, Mercedes, RDCS
--- NOTE | 2023-11-26 09:30 | MRI_ITS ---
STUDY: MRI BRAIN WITHOUT CONTRAST REASON FOR EXAM: Female, 73 years old. CVA, APHASIA TECHNIQUE: Standardized multiplanar fat and water weighted pulse sequences were obtained. COMPARISON: Head CT dated November 25, 2023 FINDINGS: There is mild cerebral atrophy with widening of the extra-axial spaces and ventricular dilatation. There are a limited number of small white matter hyperintensities, distributed throughout the deep white matter tracts of the cerebral hemispheres, consistent with mild chronic white matter ischemic changes. Normal T2* images of the brain without demonstrated susceptibility artifact. There is no demonstrated hemosiderin stain. There are no demyelinating plagues of the supratentorial brain, brainstem or cerebellum. There are no findings suspicious for multiple sclerosis (MS). There is no evidence for recent intracranial ischemia or other cause of cytotoxic edema on diffusion weighted imaging (DWI). Normal bilateral basal ganglia. Normal thalami. There is no extra-axial fluid accumulation. Normal flow voids within the major intracranial circulation suggesting patency by spin echo criteria. Normal sella turcica, pituitary gland, infundibular stalk, optic chiasm and hypothalamus. Normal tectal plate and pineal gland. Normal midbrain, diane and medulla. Normal cerebellum. Normal basal cisterns. Normal bilateral temporal bones. Normal bilateral internal auditory canals. No demonstrated orbital abnormality, within the constraints of a routine brain study. Normal visualized paranasal sinuses. Normal calvarium and skull base. Normal visualized soft tissue structures. Normal visualized upper cervical spine. MRI/Brain without Contrast IMPRESSION: Involutional changes of the brain, as described above. Electronically Signed: Padilla Burnett MD at 11:15 EDT ,
[2023-11-26] MEDS: Acetaminophen 325 MG Tablet 650 MG PO (11:20)
[2023-11-26 11:30] VITALS: BP 189/100; PULSE 75; RESP 18; TEMP 36.7; O2SAT 95
[2023-11-26 11:50] LABS: Bedside Glucose 192 mg/dL (74-106)
[2023-11-26 12:18] VITALS: BMI 39.6
--- NOTE | 2023-11-26 14:55 | CASEMGMT ---
RN JUS Assessment Face to Face with patient for initial transition planning/care coordination assessment. RN CM introduced self and role at [facility], pt voices understanding. Pt is A&Ox4 and is resting comfortably in bed and is calm. Care providers, pharmacy, and demographics verified. Admitting dx: CVA LACE Strata: 2 PCP: Dejuan Chavez Specialists: Friend (GI), Zeinab Avalos (Pulm), Chris (Derm) Preferred Pharmacy: [facility] Insurance: [employer] A[employer], [employer] Commercial Prescription Benefit: Yes LNOK: Karen Patrick (Chantel), Silvarosa Wood (Chantel) Living Arrangements: Pt 89 y/o mother lives with the pt in a single story condo with one small step to enter ADLs/IADLs: Ind Transportation: Self, Daughters, Friends DME: BiPAP (through [employer]) @ HS with no additional oxygen. BP Monitor. Pt states that she is a diabetic and takes metformin but does not have a BGM. Pt states that she would like one. CM to provide Rx. HHC/SNF: Denies Hx or needs Pt?s goal: Home Plan: Home with BGM and supplies. 6-Click is 24. Pt denies the need for HHC, OP Tx, SNF, or CCN/ pt Link. CM to follow up with the pt regarding BGM and supplies. Report given to BUSINESS PRACTICES OFFICER CM. Elena Dinh RN, CM
--- NOTE | 2023-11-26 15:01 | CASEMGMT ---
SW completed a PHQ 9 with patient as she may have had a Stroke or TIA. Patient scored a 0 which indicates no depression. Patient declined any resources. Lauren LIEBERMAN
[2023-11-26 15:22] VITALS: BMI 39.6
--- NOTE | 2023-11-26 15:41 | DS.PCM_ITS ---
Providers Date of Admission: 11/25/23 Primary Care Physician: Dr. Dejuan Chavez DO Reason For Visit: CVA Diagnosis Discharge Diagnosis (1) CVA (cerebral vascular accident): Status: Acute Code(s): I63.9 - Cerebral infarction, unspecified Plan TIA * head CT and CTA H/N, MRI brain negative * continue clopidogrel. continue statin. * Event monitor. Follow up with neurology as outpt. DC home. Medications at Discharge Home Medications vitamin E mixed 400 unit capsule 800 unit PO HS 01/24/22 hydrochlorothiazide 25 mg tablet 25 mg PO DAILY 01/23/23 potassium chloride 20 mEq tablet,extended release(part/cryst) (Klor-Con M) 20 meq PO DAILY 01/23/23 venlafaxine 75 mg capsule,extended release 24 hr 75 mg PO DAILY 01/23/23 glipizide 5 mg tablet 10 mg PO .AM 03/22/23 metformin 500 mg tablet 500 mg PO 4X/DAY 03/22/23 clonidine HCl 0.1 mg tablet 0.1 mg PO BID bp 04/10/23 metoprolol succinate 50 mg tablet,extended release 24 hr 50 mg PO DAILY 11/25/23 atorvastatin 80 mg tablet 80 mg PO QHS #30 tabs 11/26/23 clopidogrel 75 mg tablet 75 mg PO DAILY #30 tabs 11/26/23 Hospital Course Operations None Procedures 2-D Echocardiogram Summary of Care Provided Minutes Spent on Discharge: 32 Weight / BMI Weight Weight: 98.4 kg Body Mass Index (BMI) 39.6 ABG / Lab / Microbiology Data 11/26/23 06:30 11/26/23 06:30 Laboratory: Laboratory Results - last 24 hr 11/25/23 16:54: POC Glucose 221 H 11/25/23 17:15: WBC 10.9, RBC 4.73, Hgb 13.7, Hct 41.7, MCV 88.2, MCH 29.0, MCHC 32.9, RDW Std Deviation 42.7, RDW Coeff of Leonora 13.2, Plt Count 325, MPV 9.9, Immature Gran % (Auto) 0.600, Neut % (Auto) 64.5, Lymph % (Auto) 23.4, [place] % (Auto) 8.5, Eos % (Auto) 2.0, Baso % (Auto) 1.0, Absolute Neuts (auto) 7.0, Absolute Lymphs (auto) 2.55, Nucleated RBC % 0, PT 13.3, INR 1.0, APTT 31.1, Sodium 137, Potassium 3.4 L, Chloride 100, Carbon Dioxide 32.0, Anion Gap 5, BUN 13, Creatinine 0.93, Estim Creat Clear Calc 58.51, Est GFR (MDRD) Af Amer 76, Est GFR (MDRD) Non-Af 63, BUN/Creatinine Ratio 14.0, Glucose 225 H, Calcium 9.5, Troponin I High Sens 7 11/25/23 22:24: POC Glucose 128 H 11/26/23 06:22: POC Glucose 192 H 11/26/23 06:30: WBC 10.1, RBC 4.58, Hgb 13.4, Hct 40.0, MCV 87.3, MCH 29.3, MCHC 33.5, RDW Std Deviation 41.5, RDW Coeff of Leonora 13.2, Plt Count 298, MPV 9.6, Immature Gran % (Auto) 0.500, Neut % (Auto) 69.4, Lymph % (Auto) 20.7, [place] % (Auto) 7.6, Eos % (Auto) 1.1, Baso % (Auto) 0.7, Absolute Neuts (auto) 7.0, Absolute Lymphs (auto) 2.08, Nucleated RBC % 0, Sodium 133 L, Potassium 3.6, Chloride 98, Carbon Dioxide 27.0, Anion Gap 8, BUN 11, Creatinine 0.74, Estim Creat Clear Calc 67.61, Est GFR (MDRD) Af Amer 99, Est GFR (MDRD) Non-Af 82, BUN/Creatinine Ratio 14.9, Glucose 215 H, Calcium 9.1, Triglycerides 108, Cholesterol 160, LDL Cholesterol 87, VLDL Cholesterol 22, HDL Cholesterol 51 11/26/23 11:19: POC Glucose 192 H Radiography Diagnostic Testing: Radiology Impression Brain CT 11/25/23 16:57 IMPRESSION: Negative Brain CT without contrast. N.B. : The above Results were Read Back by Morro Rader MD to Taran Bruce DO, and understanding confirmed on 11/25/2023 17:15:08 (ET). Electronically Signed: Morro Rader MD at 17:17 EDT Reading Location ID and State: [facility] / [place] , Service support , ADDENDUM: 11/25/23 1724 IMPRESSION: Negative Brain CT without contrast. N.B. : The above Results were Read Back by Morro Rader MD to Taran Bruce DO, and understanding confirmed on 11/25/2023 17:15:08 (ET). Electronically Signed: Morro Rader MD at 17:17 EDT Reading Location ID and State: [facility] / [place] , Service support , Head/Neck CTA 11/25/23 16:58 IMPRESSION: No acute abnormality. No large vessel occlusion. No hemodynamically significant stenosis. Tortuous carotid arteries. N.B. : The above Results were Read Back by Morro Rader MD to Taran Bruce DO and understanding confirmed on 11/25/2023 17:38:46 (ET). Electronically Signed: Morro Rader MD at 17:38 EDT Reading Location ID and State: [facility] / [place] , Service support , ADDENDUM: 11/25/23 1745 IMPRESSION: No acute abnormality. No large vessel occlusion. No hemodynamically significant stenosis. Tortuous carotid arteries. N.B. : The above Results were Read Back by Morro Rader MD to Taran Bruce DO and understanding confirmed on 11/25/2023 17:38:46 (ET). Electronically Signed: Morro Rader MD at 17:38 EDT Reading Location ID and State: [facility] / [place] , Service support , Chest X-Ray 11/25/23 17:42 IMPRESSION: Mild diffuse interstitial prominence consistent with mild fibrosis also present previously. No definite acute abnormalities. Electronically Signed: Morro Rader MD at 18:56 EDT , Brain MRI 11/26/23 09:30 IMPRESSION: Involutional changes of the brain, as described above. Electronically Signed: Padilla Burnett MD at 11:15 EDT , D/C Instructions Discharge Diet: 2000 Calorie Control Diet Meaningful Use Info Meaningful Use Meaningful Use Diagnoses (Choose all that apply): Ischemic CVA CVA Therapy Assessed for PT,OT and/or ST?: Yes Ischemic Stroke Antithrombotic order at d/c?: Yes Dx of Atrial fib/flutter?: No Anticoagulant at discharge?: No Reason anticoagulant not ordered: Treatment not Indicated Statin Dosing Therapy Reference: STATIN DOSE THERAPY REFERENCE: * Patients > 75 years receive moderate or high dose statin therapy. * Patients 75 years or YOUNGER should receive HIGH intensity statin dose unless contraindicated. You will be required to document reason for non-treatment if statin daily dose does not meet guidelines. HIGH DOSE STATIN THERAPY DAILY Atorvastatin > than or = to 40 mg Rosuvastatin > than or = to 20 mg Amlodipine + Atorvastatin > than or = to 2.5/40 mg Ezetimibe + Simvastatin 10/80 mg Simvastatin 80mg Statins at discharge?: Yes If patient is 75 or younger, pt will be discharged on HIGH intensity statin.: Y es Primary Dx Acute Ischemic CVA?: Yes IV thrombolytic ordered during stay?: No Discharge Plan Admission Admit Date/Time: 11/25/23 18:03 Primary Reason for Your Visit: TIA Attending Provider: Tushar Martinez Primary Care Provider: Dejuan Chavez Consulting Providers: Tj Cedeño Instructions Additional Instructions / Restrictions: He had a was concerning for a TIA, mini stroke. Your stroke workup here was normal. Though that does not rule out the possibility of a mini stroke. Would like you to follow-up with neurology as outpatient. He will also need to have an event monitor to see if he have any heart rhythm issues. [facility] [place] [facility] [phone]. [facility] [place] [phone]. [facility] [place] [phone]. [facility] [phone]. [facility] [place] [phone] Discharge Orders/Prescriptions Prescriptions: New atorvastatin 80 mg Tablet 80 mg PO QHS Qty: 30 0RF clopidogrel 75 mg Tablet 75 mg PO DAILY Qty: 30 0RF Continued glipizide 5 mg tablet 10 mg PO .AM vitamin E mixed 400 unit capsule 800 unit PO HS clonidine HCl 0.1 mg tablet 0.1 mg PO BID Patient Comments: venlafaxine 75 mg capsule,extended release 24hr 75 mg PO DAILY hydrochlorothiazide 25 mg tablet 25 mg PO DAILY potassium chloride [Klor-Con M20] 20 mEq tablet,ER particles/crystals 20 meq PO DAILY metoprolol succinate 50 mg tablet extended release 24 hr 50 mg PO DAILY Held metformin 500 mg tablet 500 mg PO 4X/DAY Hold Instructions: Resume on 11/30/23. Discontinued pravastatin 20 MG tablet 20 mg PO DAILY Other Ambulatory Orders: 30 Day Event Recorder Preventi (Urgent) Timeframe: 1 Day Facility: [facility] - Location: Cardiovascular Services Ordered By: Dr. Tushar Martinez Referrals / Follow Up: Dejuan Chavez DO [Primary Care Provider] - Within 2 Weeks Disposition Disposition (needs filled in before D/C Order can be placed): Home, Self Care Charges/Coding Visit Charges Inpatient E&M: 41874 Disch Hosp >30min
[2023-11-26 15:53] VITALS: BP 151/93; PULSE 77; RESP 18; TEMP 36.8; O2SAT 96
--- NOTE | 2023-11-26 16:15 | CASEMGMT ---
Patient has order for discharge. No therapy recommended at discharge. RN CM in to discuss needs at discharge. Patient denies needs or help at discharge. Patient had no further questions or concerns.
== END 2023-11-26 17:04 | disposition home or self-care (01) | DRG 69 ==
LOC: ED 18:16 → PCU 18:22
PROVIDERS: Admitting Provider Family Medicine; Emergency Provider Emergency Medicine; PCP Family Medicine
DX: G45.9 Transient cerebral ischemic attack, unspecified (principal); E11.9 Type 2 diabetes mellitus without complications; I10 Essential (primary) hypertension; F32.A Depression, unspecified; E78.00 Pure hypercholesterolemia, unspecified; G47.33 Obstructive sleep apnea (adult) (pediatric); F41.9 Anxiety disorder, unspecified; I16.0 Hypertensive urgency; R29.700 NIHSS score 0; Z79.84 Long term (current) use of oral hypoglycemic drugs; Z87.891 Personal history of nicotine dependence; Z79.899 Other long term (current) drug therapy
CPT/HCPCS: 36415; 70450; 70496; 70498; 70551; 71045; 80048; 80061; 82962; 84484; 85025; 85610; 85730; 92523; 93005; 93306; 94762; 97802; 99285; Q9967

== ENCOUNTER 2024-03-05 13:46 | Emergency (ER) | payer MEDICARE, OTHER, SELFPAY ==
[2024-03-05 13:46] VITALS: BP 184/96; PULSE 100; RESP 18; TEMP 36.8; O2SAT 93; BMI 37.8
--- NOTE | 2024-03-05 14:35 | RAD_ITS ---
INDICATION: cough EXAMINATION/TECHNIQUE: X-RAY - XR Chest 2 Views COMPARISON: Prior study dated: 11/25/2023 FINDINGS: LINES/DEVICES: None. LUNGS: Prominent markings in left lung base unchanged probably chronic. No new infiltrate is seen. Mild elevation of the right hemidiaphragm. No evidence of pleural effusions. MEDIASTINUM AND CARDIOVASCULAR STRUCTURES: Cardiac silhouette not enlarged. Central airways and mediastinal contour are unremarkable. BONES AND SOFT TISSUES: Unremarkable. RAD/Chest PA and Lateral IMPRESSION: Chronic changes. No active pulmonary disease. Electronically Signed: Thomas Locke MD at 15:38 EST ,
--- NOTE | 2024-03-05 14:36 | EDS_ITS ---
HPI HPI - URI History of Present Illness Chief Complaint: Cold Sx Informant: patient Onset/Context/Timing Onset: Days Context: Gradual Onset Timing: Continuous Current Severity: Mild Maximum Severity: Mild Associated Symptoms Associated Symptoms: Positive for Nasal Congestion, Myalgias and Productive Cough (Yellow phlegm) Narrative Narrative: 73-year-old female history of diabetes. On Plavix. Says she had cough, URI symptoms sore throat for last 3 to 4 days. Cough of yellowish sputum. Mild nausea no vomiting or diarrhea. Subjective fever. Prior similar symptoms: Yes Recent Illness/Hospitalization: No ROS ROS ED ROS Narrative Cough. Body aches. Subjective fever. Sore throat. Constitutional Constitutional ED: Reports chills and fever(s) Eyes Eyes: Denies blurry vision ENT ENT ED: Reports sore throat; Denies ear pain or rhinorrhea Cardiovascular Cardiovascular: Denies chest pain or palpitations Respiratory/Chest Respiratory/Chest: Reports cough Gastrointestinal Gastrointestinal: Reports nausea; Denies abdominal pain, constipation, diarrhea, melena or vomiting Genitourinary Genitourinary ED: Denies dysuria or hematuria Musculoskeletal Musculoskeletal: Denies arthralgias Integumentary Denies abscess Neurologic Neurologic: Denies headache(s) Psychiatric Psychiatric: Denies anxiety Endocrine Endocrinology: Denies cold intolerance Hematologic/Lymphatic Hematologic/Lymphatic: Denies easy bleeding Allergic/Immunologic Allergic/Immunologic ED: Denies mouth swelling, tongue swelling or urticaria PFSH PFSH Medical History PAC (premature atrial contraction) Dyspnea on exertion Chest pressure Vitamin B12 deficiency PVC (premature ventricular contraction) Chronic dyspnea Liver fibrosis Post-menopausal Alcohol use High cholesterol BiPAP (biphasic positive airway pressure) dependence DM type 2, goal HbA1c < 7% Recent weight loss Family history of breast cancer Intertrigo Left shoulder pain Right shoulder pain Chronic thoracic back pain Chronic neck pain Macromastia Gallstones Cataracts, bilateral Back problem Sleep apnea CLARY (obstructive sleep apnea) Tubular adenoma of colon P-ANCA titer positive Diverticular disease NAFLD (nonalcoholic fatty liver disease) Wears glasses Low iron Dietary restriction Difficulty swallowing History of hiatal hernia History of diverticulitis Shortness of breath on exertion History of edema History of echocardiogram History of stress test History of irregular heartbeat CPAP (continuous positive airway pressure) dependence Fatty liver Angioedema Vitamin D deficiency Nausea Heartburn Early satiety Diarrhea Anxiety Phantosmia Hypokalemia Hyperlipidemia Functional dyspepsia Obesity SOB (shortness of breath) Depression Diabetes GERD (gastroesophageal reflux disease) Non-smoker Sleep apnea Hypertension Morbid obesity Severe tongue swelling Home Medications ?Medication ?Instructions ?Recorded ?Last Taken ?Type vitamin E mixed 400 unit capsule 800 unit PO HS 01/24/22 Unknown History hydrochlorothiazide 25 mg tablet 25 mg PO DAILY 01/23/23 Unknown History potassium chloride 20 mEq 20 meq PO DAILY 01/23/23 Unknown History tablet,extended release(part/cryst) (Klor-Con M) venlafaxine 75 mg capsule,extended 75 mg PO DAILY 01/23/23 Unknown History release 24 hr glipizide 5 mg tablet 10 mg PO .AM 03/22/23 Unknown History metformin 500 mg tablet 500 mg PO 4X/DAY 03/22/23 Unknown History clonidine HCl 0.1 mg tablet 0.1 mg PO DAILY bp 04/10/23 Unknown History metoprolol succinate 50 mg 50 mg PO DAILY 11/25/23 Unknown History tablet,extended release 24 hr atorvastatin 80 mg tablet 80 mg PO QHS #30 tabs 11/26/23 Unknown Rx clopidogrel 75 mg tablet 75 mg PO DAILY #30 tabs 11/26/23 Unknown Rx cholecalciferol (vitamin D3) 1,250 mcg PO QMONTH 03/05/24 Unknown History Allergy/AdvReac Type Severity Reaction Status Date / Time aspirin Allergy Severe Tongue Verified 03/05/24 13:48 Swelling lisinopril Allergy Angioedema Verified 03/05/24 13:48 Family History Mother Myocardial infarction Abnormality of hormone Father Hypertension Cancer skin Sister Breast cancer Daughter History of blood clots Surgical History H/O bilateral breast reduction surgery History of esophagogastroduodenoscopy (EGD) History of cataract surgery (~02/2021) History of tubal ligation Hx of colonoscopy History of tonsillectomy and adenoidectomy History of cholecystectomy History of appendectomy Social History Smoking Status: Never smoker alcohol intake: current alcohol intake frequency: holidays/special occasions only substance use type: does not use caffeine: Yes (diet pop) Type: carbonated beverages additional social history: Does Not Take Aspirin Does Take Ibuprofen As Needed EXAM Physical Exam Narrative Exam Narrative: 73-year-old female no acute distress vital signs stable afebrile. Pulse ox 93% on room air no signs hypoxia. H EENT exam unremarkable. Pupils round reactive light. Moist mucous membranes. Neck nontender. No JVD. Lungs clear to auscultation bilaterally. Dry cough. Heart regular rate and rhythm rate about 100 no murmur. Chest wall ribs nontender. Abdomen soft nontender. Moving all 4 extremities. 5-5 aircraft cabin cleaner strength. Calves are nontender without edema. Back nontender. Neurologically she is awake and alert. Answer questions following commands. Const Vital Signs: 03/05/24 13:46 03/05/24 14:21 03/05/24 15:57 Temperature 98.2 F Temperature Source Oral Pulse Rate 100 90 Respiratory Rate 18 15 Respiratory Effort Short of Breath Respiratory Pattern Normal Blood Pressure 184/96 H 179/84 H Blood Pressure Mean 125 115 Pulse Ox 93 94 Oxygen Delivery Method Room Air Room Air Positive well nourished and well developed; Negative for cachectic or contractures General Appearance ED: well developed and NAD; Negative for cachectic, contractures, cyanotic, diaphoretic or pallor Nutritional Appearance: Negative for cachectic HEENT Reports moist mucous membranes normocephalic and atraumatic Throat: posterior oropharynx normal Eyes PERRL and EOMs intact bilaterally General Eye ED: Negative for pale conjunctiva or scleral icterus Neck no lymphadenopathy, supple, no meningeal signs and no JVD Resp normal respiratory effort and clear to auscultation bilaterally Effort and Inspection: Negative for retractions Auscultation: Negative for rales, rhonchi or wheezes Cardio S1 normal heart sound, S2 normal heart sound and no murmurs Rate: regular rate Rhythm: regular rhythm GI non-tender, non-distended and no masses Palpation: soft; Negative for tender or guarding Back/Spine no CVA tenderness and normal ROM General Back: Negative for CVA tenderness Cervical Spine: Negative for cervical spine tenderness Thoracic Spine / Upper Back: Negative for thoracic spinal tenderness Lumbar Spine / Lower Back: Negative for lumbar spinal tenderness Sacrum: Negative for tenderness Extremity normal to inspection and full ROM General Extremety ED: Negative for cyanosis, tenderness or other findings General Extremity: Negative for cyanosis or other findings Neuro oriented x3 and CN's II-XII intact bilaterally Sensorium / Orientation: alert, oriented to person, oriented to place and oriented to time Motor Exam: strength 5/5 throughout Psych mental status grossly normal Appearance: Negative for other Attitude: No agitated Mood & Affect: Negative for depressed, anxious or tearful Skin General Skin Exam: Negative for jaundice or pallor Lesions: no lesions Rashes: no rashes Trauma: Negative for abrasion or laceration MDM MDM MDM Narrative Medical decision making narrative: 73-year-old URI pneumonia versus viral syndrome. Chest x-ray, labs and COVID and flu testing. Repeat exam resting comfortably at 3:30 pm awaiting lab work. Repeat exam unchanged patient doing well at 4:05 PM. COVID-positive. Fluids and rest. And self-care as noted. Follow-up with your doctor to ensure she is feeling better and her sodium is improving. History & Record Review Discussion w/independent historian: Patient Additional record(s) reviewed:: Prior outpatient record, Prior ED visit and Prior labs Lab Data Attestation: I reviewed the patient's lab results. Lab results narrative: CBC normal white count 9 H&H 14 and 42. Platelets 253. Chest x-ray unremarkable. No pneumonia. Electrolytes show sodium 126. Gap 9. Normal BUN of 14 creatinine 0.9. Glucose 262. COVID-positive. Flu negative. Labs: Laboratory Results - last 24 hr 03/05/24 14:45 WBC 9.9 RBC 4.97 Hgb 14.3 Hct 42.8 MCV 86.1 MCH 28.8 MCHC 33.4 RDW Std Deviation 40.7 RDW Coeff of Leonora 13.2 Plt Count 253 MPV 9.4 Immature Gran % (Auto) 0.300 Neut % (Auto) 79.7 H Lymph % (Auto) 6.7 L Woodson % (Auto) 12.4 H Eos % (Auto) 0.2 Baso % (Auto) 0.7 Absolute Neuts (auto) 7.9 H Absolute Lymphs (auto) 0.67 L Nucleated RBC % 0 Sodium 126 L Potassium 3.7 Chloride 91 L Carbon Dioxide 26.0 Anion Gap 9 BUN 14 Creatinine 0.92 Estim Creat Clear Calc 57.27 Est GFR (MDRD) Af Amer 77 Est GFR (MDRD) Non-Af 64 BUN/Creatinine Ratio 15.3 Glucose 262 H Calcium 8.9 Radiography Chest X-Ray - ED: 2 View, Read by ED Physician, Normal, Heart, Lungs, Mediastinum, Bony Structures, No Acute Disease and Chronic Changes Diagnostic Testing: Clinical Impression(s) from Imaging Studies Chest X-Ray 03/05/24 14:35 IMPRESSION: Chronic changes. No active pulmonary disease. Electronically Signed: Thomas Locke MD at 15:38 EST , Chest x-ray, 2 views, AP and lateral, interpreted by myself shows no acute abnormality. Normal cardiac silhouette. Normal lung camara. Elevated right hemidiaphragm. No pneumonia. Discharge Plan Triage Chief Complaint: Cold Sx ED Provider: Eleazar Oliveira Dx/Rx/DC Orders Clinical Impression: Viral URI, COVID, Acute hyponatremia Instructions: Human Coronaviruses, ED Hyponatremia, ED URI, Viral, No Abx (Adult) Prescriptions: No Action glipizide 5 mg tablet 10 mg PO .AM metformin 500 mg tablet 500 mg PO 4X/DAY vitamin E mixed 400 unit capsule 800 unit PO HS clonidine HCl 0.1 mg tablet 0.1 mg PO DAILY Patient Comments: venlafaxine 75 mg capsule,extended release 24hr 75 mg PO DAILY hydrochlorothiazide 25 mg tablet 25 mg PO DAILY potassium chloride [Klor-Con M20] 20 mEq tablet,ER particles/crystals 20 meq PO DAILY metoprolol succinate 50 mg tablet extended release 24 hr 50 mg PO DAILY atorvastatin 80 mg Tablet 80 mg PO QHS Qty: 30 0RF clopidogrel 75 mg Tablet 75 mg PO DAILY Qty: 30 0RF cholecalciferol (vitamin D3) 1,250 mcg PO QMONTH Primary Care Provider: Dejuan Chavez Referrals: Dejuan Chavez DO [Primary Care Provider] - 1 Week Activity Restrictions/Additional Instructions: Plenty of fluids and rest. You are COVID-positive. No pneumonia. Also your sodium level is low at 126. That should be rechecked in 1 to 2 weeks to ensure it is improving. Add salt to your food. Follow-up with your doctor to ensure you are improving. And to make sure your sodium level is going back up that will need to be rechecked with blood work. Print Language: Romanian Disposition Disposition: Acute Care Hospital
[2024-03-05 15:10] LABS: Absolute Lymphocyte Count 0.67 X10^3/uL (0.83-4.51); Absolute Neutrophil Count 7.9 X10^3/uL (2.0-7.7); Basophil# 0.07 X10^3/uL; Basophil% 0.7 % (0-1); Eosinophil# 0.02 X10^3/uL; Eosinophils% 0.2 % (0-5); Hematocrit 42.8 % (37-47); Hemoglobin 14.3 g/dL (12.0-15.0); Lymphocyte # 0.67 X10^3/ul (0.83-4.51); Lymphocyte % 6.7 % (19-41); Mean Corp Hgb Conc 33.4 g/dL (32-36); Mean Corpuscular Hgb 28.8 pg (27.0-32.0); Mean Corpuscular Volume 86.1 fL (81-99); Mean Platelet Vol. 9.4 fl (6.2-12.0); Monocyte# 1.23 X10^3/uL; Monocyte% 12.4 % (0-10); NRBC Flagged by Analyzer 0 % (0-5); Neutrophil # 7.92 X10^3/uL (2.7-7.7); Neutrophil % 79.7 % (47-70); Platelet Count 253 K/mm3 (150-450); RBC Distribution Width CV 13.2 % (11.6-14.6); RBC Distribution Width SD 40.7 fl (35.1-43.9); Red Blood Count 4.97 M/mm3 (4.2-5.4); White Blood Count 9.9 K/mm3 (4.4-11.0)
[2024-03-05 15:16] LABS: Anion Gap 9 (5-15); BUN 14 mg/dL (7-18); BUN/Creat Ratio 15.3 RATIO (10-20); Calcium,Total 8.9 mg/dL (8.5-10.1); Chloride 91 mmol/L (98-107); Creatinine, Serum 0.92 mg/dL (0.55-1.02); EST Glomerular Filtration Rate 64 mL/min (>60); Est Glom Filt Rate - Afr Amer 77 mL/min (>60); Estimated Creatinine Clearance 57.27 ml/min; Glucose 262 mg/dL (74-106); Potassium 3.7 mmol/L (3.5-5.1); Sodium Level 126 mmol/L (136-145)
[2024-03-05 15:57] VITALS: BP 179/84; PULSE 90; RESP 15; O2SAT 94
[2024-03-05 16:13] VITALS: BP 195/87; PULSE 91; RESP 20; TEMP 37.2; O2SAT 97
--- NOTE | 2024-03-05 16:14 | ED.RN ---
PER JC CORTEZ TO DISCHARGE PATIENT WITH BP 195/87. PT INSTRUCTED TO TAKE HOME BP MEDS PRESCRIBED.
== END 2024-03-05 16:18 | disposition home or self-care (01) ==
PROVIDERS: Emergency Provider Emergency Medicine; PCP Family Medicine; Visit Provider Emergency Medicine
DX: J06.9 Acute upper respiratory infection, unspecified (principal); E11.9 Type 2 diabetes mellitus without complications; U07.1 COVID-19; I10 Essential (primary) hypertension; E78.00 Pure hypercholesterolemia, unspecified; E87.1 Hypo-osmolality and hyponatremia; G47.33 Obstructive sleep apnea (adult) (pediatric); Z79.899 Other long term (current) drug therapy; Z79.84 Long term (current) use of oral hypoglycemic drugs; Z79.01 Long term (current) use of anticoagulants
CPT/HCPCS: 71046; 80048; 85025; 87631; 99284

== ENCOUNTER → 2024-03-24 | Outpatient (CLI) | payer MEDICARE, OTHER, SELFPAY ==
[2024-03-24 15:37] LABS: Anion Gap 5 (5-15); BUN 12 mg/dL (7-18); BUN/Creat Ratio 13.8 RATIO (10-20); Calcium,Total 9.3 mg/dL (8.5-10.1); Chloride 102 mmol/L (98-107); Creatinine, Serum 0.87 mg/dL (0.55-1.02); EST Glomerular Filtration Rate 67 mL/min (>60); Est Glom Filt Rate - Afr Amer 82 mL/min (>60); Glucose 216 mg/dL (74-106); Potassium 3.4 mmol/L (3.5-5.1); Sodium Level 139 mmol/L (136-145)
== END | disposition home or self-care (01) ==
LOC: BFHLAB 13:18
PROVIDERS: PCP Family Medicine; Referring Provider Family Medicine; Visit Provider Family Medicine
DX: E87.1 Hypo-osmolality and hyponatremia (principal)
CPT/HCPCS: 36415; 80048

== ENCOUNTER → 2024-06-19 | Outpatient (CLI) | payer MEDICARE, OTHER, SELFPAY ==
--- NOTE | 2024-06-19 13:03 | BI_ITS ---
EXAM: SCRN MAMM (CAD)W/JOAQUÍN BILAT 06/19/2024 CLINICAL HISTORY: F, Age 74 y/o , SCREENING. Family history of breast cancer in her sister and maternal aunt. Personal history of bilateral breast reduction in 08/2023. TECHNIQUE: Bilateral screening digital breast tomosynthesis with 2D and 3D images. Computer aided detection. COMPARISON: Prior exam(s) dated 06/19/2023. FINDINGS: TISSUE DENSITY: The breast tissue is composed of scattered area of fibroglandular density. Bilateral Breast Mammographic Findings: No significant masses, calcifications or other abnormalities are identified. BI/SCRN MAMM (CAD)W/JOAQUÍN BILAT IMPRESSION: Right Breast: BIRADS 1 NEGATIVE. Left Breast: BIRADS 1 NEGATIVE. OVERALL FINAL ASSESSMENT: BIRADS 1 NEGATIVE. RECOMMENDATION: Routine annual follow-up in 1 Year A letter with findings and recommendations will be mailed to the patient. Reading Location: [id number]
== END | disposition home or self-care (01) ==
LOC: OPBI 13:02
PROVIDERS: PCP Family Medicine; Referring Provider Family Medicine; Visit Provider Family Medicine
DX: Z12.31 Encounter for screening mammogram for malignant neoplasm of breast (principal)
CPT/HCPCS: 77063; 77067

== ENCOUNTER 2024-08-08 07:13 | Emergency (ER) | payer MEDICARE, OTHER, SELFPAY ==
[2024-08-08 07:14] VITALS: BP 151/120; PULSE 97; RESP 18; TEMP 36.4; O2SAT 98
--- NOTE | 2024-08-08 07:21 | EX.ED.DYSGE1 ---
HPI History of Present Illness Chief Complaint: Allergic Reaction Informant: patient Onset/Context/Timing Onset: Today Context: Sudden Onset Timing: Continuous Quality: Swollen Location: Tongue Worsened by: Nothing Relieved by: Nothing Narrative Narrative: Patient presents with tongue swelling that began today. Patient states she woke up with it. Patient states she was recently started on Augmentin for diverticulitis. Patient states she is allergic to aspirin which causes tongue swelling. Patient states she took a dose of naproxen last night. Patient states she is able to swallow her saliva. Patient denies any shortness of breath. Patient denies any cough. Patient denies any chest pain. Patient denies any nausea or vomiting. Patient denies any hives. Patient states she took 1 [id number] Benadryl tablet prior to arrival. Patient does not take any RONI inhibitor's or ARB's. [facility] Medical History COVID PAC (premature atrial contraction) Dyspnea on exertion Chest pressure Vitamin B12 deficiency PVC (premature ventricular contraction) Chronic dyspnea Liver fibrosis Post-menopausal Alcohol use High cholesterol BiPAP (biphasic positive airway pressure) dependence DM type 2, goal HbA1c < 7% Recent weight loss Family history of breast cancer Intertrigo Left shoulder pain Right shoulder pain Chronic thoracic back pain Chronic neck pain Macromastia Gallstones Cataracts, bilateral Back problem Sleep apnea CLARY (obstructive sleep apnea) Tubular adenoma of colon P-ANCA titer positive Diverticular disease NAFLD (nonalcoholic fatty liver disease) Wears glasses Low iron Dietary restriction Difficulty swallowing History of hiatal hernia History of diverticulitis Shortness of breath on exertion History of edema History of echocardiogram History of stress test History of irregular heartbeat CPAP (continuous positive airway pressure) dependence Fatty liver Angioedema Vitamin D deficiency Nausea Heartburn Early satiety Diarrhea Anxiety Phantosmia Hypokalemia Hyperlipidemia Functional dyspepsia Obesity SOB (shortness of breath) Depression Diabetes GERD (gastroesophageal reflux disease) Non-smoker Sleep apnea Hypertension Morbid obesity Severe tongue swelling Home Medications ?Medication ?Instructions ?Recorded ?Last Taken ?Type vitamin E mixed 400 unit capsule 800 unit PO HS 01/24/22 Unknown History hydrochlorothiazide 25 mg tablet 25 mg PO DAILY 01/23/23 Unknown History potassium chloride 20 mEq 20 meq PO DAILY 01/23/23 Unknown History tablet,extended release(part/cryst) (Klor-Con M) venlafaxine 75 mg capsule,extended 75 mg PO DAILY 01/23/23 Unknown History release 24 hr metoprolol succinate 50 mg 50 mg PO DAILY 11/25/23 Unknown History tablet,extended release 24 hr atorvastatin 80 mg tablet 80 mg PO QHS #30 tabs 11/26/23 Unknown Rx clopidogrel 75 mg tablet 75 mg PO DAILY #30 tabs 11/26/23 Unknown Rx cholecalciferol (vitamin D3) 1,250 mcg PO QMONTH 03/05/24 Unknown History tirzepatide 2.5 mg/0.5 mL 2.5 mg subcut QWEEK 07/30/24 Unknown History subcutaneous pen injector (Prietounjaro) amoxicillin 875 mg-potassium 1 tab PO BID 08/08/24 Unknown History clavulanate 125 mg tablet prednisone 20 mg tablet 60 mg (3 x 20 mg) PO DAILY #15 08/08/24 Unknown Rx TABLETS Allergy/AdvReac Type Severity Reaction Status Date / Time aspirin Allergy Severe Tongue Verified 07/30/24 10:41 Swelling lisinopril Allergy Angioedema Verified 07/30/24 10:41 Family History Mother Myocardial infarction Abnormality of hormone Father Hypertension Cancer skin Sister Breast cancer Daughter History of blood clots Surgical History H/O bilateral breast reduction surgery History of esophagogastroduodenoscopy (EGD) History of cataract surgery (~02/2021) History of tubal ligation Hx of colonoscopy History of tonsillectomy and adenoidectomy History of cholecystectomy History of appendectomy Social History Smoking Status: Never smoker alcohol intake: current alcohol intake frequency: holidays/special occasions only substance use type: does not use caffeine: Yes (diet pop) Type: carbonated beverages additional social history: Does Not Take Aspirin Does Take Ibuprofen As Needed ROS ROS ED Constitutional Constitutional ED: Denies chills or fever(s) Eyes Eyes: Denies blurry vision or change in vision ENT ENT ED: Denies rhinorrhea or sore throat Cardiovascular Cardiovascular: Denies chest pain or palpitations Respiratory/Chest Respiratory/Chest: Denies cough or dyspnea Gastrointestinal Gastrointestinal: Denies nausea or vomiting Genitourinary Genitourinary ED: Denies dysuria or hematuria Musculoskeletal Musculoskeletal: Denies back pain or neck pain Integumentary Denies abscess or rash Neurologic Neurologic: Denies headache(s) or weakness Allergic/Immunologic Allergic/Immunologic ED: Reports tongue swelling; Denies urticaria EXAM Physical Exam Const Vital Signs: 08/08/24 07:14 08/08/24 08:13 08/08/24 09:00 Temperature 97.6 F L Temperature Source Temporal Pulse Rate 97 66 68 Respiratory Rate 18 18 18 Blood Pressure 151/120 H 148/90 H 125/80 H Blood Pressure Mean 130 109 95 Pulse Ox 98 98 98 Oxygen Delivery Method Room Air Nasal Cannula Nasal Cannula Oxygen Flow Rate (L/min) 3 3 08/08/24 10:00 08/08/24 11:00 Temperature Temperature Source Pulse Rate 71 71 Respiratory Rate 18 18 Blood Pressure 116/95 H 129/67 H Blood Pressure Mean 102 87 Pulse Ox 98 98 Oxygen Delivery Method Nasal Cannula Nasal Cannula Oxygen Flow Rate (L/min) 3 3 Positive well nourished and well developed General Appearance ED: well developed and NAD HEENT Reports moist mucous membranes HEENT Narrative: There is edema of the tongue. There is no swelling of the lips. There is no pharyngeal edema noted. There is no erythema noted. Neck supple and no JVD Resp normal respiratory effort and clear to auscultation bilaterally Cardio regular rate and regular rhythm GI non-tender and non-distended Palpation: soft Neuro oriented x3, CN's II-XII intact bilaterally and no sensory deficits noted Sensorium / Orientation: alert Motor Exam: strength 5/5 throughout Psych mental status grossly normal MDM MDM MDM Narrative Medical decision making narrative: Differential diagnosis includes but is not limited to angioedema, and allergic reaction. CBC will be obtained to assess for leukocytosis and anemia. Basic metabolic profile will be obtained to assess for electrolyte abnormality renal function. History & Record Review Additional record(s) reviewed:: Prior ED visit and Prior labs Lab Data Attestation: I reviewed the patient's lab results. Lab results narrative: CBC was reviewed. There is a slight leukocytosis of 11.5. The remainder is within normal limits. Basic metabolic profile was reviewed. Glucose was elevated at 310. Potassium was low at 2.7. The remainder is within normal limits. Labs: Laboratory Results - last 24 hr 08/08/24 08/08/24 07:20 08:05 WBC 11.5 H RBC 5.13 Hgb 15.1 H Hct 44.0 MCV 85.8 MCH 29.4 MCHC 34.3 RDW Std Deviation 39.6 RDW Coeff of Leonora 12.6 Plt Count 315 MPV 9.7 Immature Gran % (Auto) 0.300 Neut % (Auto) 59.8 Lymph % (Auto) 26.5 Hayes % (Auto) 10.1 H Eos % (Auto) 2.4 Baso % (Auto) 0.9 Absolute Neuts (auto) 6.9 Absolute Lymphs (auto) 3.06 Nucleated RBC % 0 Sodium Cancelled 134 Potassium Cancelled 2.7 L* Chloride Cancelled 96 L Carbon Dioxide Cancelled 25.0 Anion Gap Cancelled 13 BUN Cancelled 10 Creatinine Cancelled 0.89 Estim Creat Clear Calc Cancelled 60.58 Est GFR (MDRD) Non-Af Cancelled 68 BUN/Creatinine Ratio Cancelled 11.3 Glucose Cancelled 310 H Calcium Cancelled 8.6 Treatment and Re-Evaluation :: Patient was given Solu-Medrol, Benadryl, and Pepcid. Patient was given a dose of oral potassium. Patient was observed here in the emergency department for 4 hours. Patient was feeling better on reevaluation. The tongue swelling has markedly improved. Patient was given a prescription for prednisone. Patient was instructed to avoid any anti-inflammatory medications such as aspirin, naproxen, ibuprofen, or Advil. Patient was instructed to take Tylenol as needed for pain. Patient was instructed to continue her Augmentin as prescribed. Patient was instructed to follow-up with her primary care physician in 3 to 5 days. Patient was instructed to return if worse in any way. Patient understood and was agreeable with plan. All questions were answered. Discharge Plan Triage Chief Complaint: Allergic Reaction ED Provider: Tushar Mack Dx/Rx/DC Orders Clinical Impression: Angioedema of tongue, Diabetes Instructions: ED General Allergic Reactions, ED Drug Reaction, Other Prescriptions: New prednisone 20 mg tablet 60 mg PO DAILY Qty: 15 0RF No Action vitamin E mixed 400 unit capsule 800 unit PO HS Mounjaro 2.5 mg/0.5 mL pen injector 2.5 mg subcut QWEEK venlafaxine 75 mg capsule,extended release 24hr 75 mg PO DAILY hydrochlorothiazide 25 mg tablet 25 mg PO DAILY potassium chloride [Klor-Con M20] 20 mEq tablet,ER particles/crystals 20 meq PO DAILY metoprolol succinate 50 mg tablet extended release 24 hr 50 mg PO DAILY atorvastatin 80 mg Tablet 80 mg PO QHS Qty: 30 0RF clopidogrel 75 mg Tablet 75 mg PO DAILY Qty: 30 0RF cholecalciferol (vitamin D3) 1,250 mcg PO QMONTH amoxicillin-pot clavulanate 875-125 mg tablet 1 tab PO BID Primary Care Provider: Dejuan Chavez Referrals: Dejuan Chavez DO [Primary Care Provider] - 3-5 Days Print Language: Sammarinese Disposition Disposition: Home, Self Care
[2024-08-08] MEDS: DiphenhydrAMINE 50 MG/ML Syringe 25 MG IV (07:26)
[2024-08-08] MEDS: MethylPREDNISolone 125 MG/2 ML Vial 80 MG IV (07:28)
[2024-08-08 07:33] LABS: Absolute Lymphocyte Count 3.06 X10^3/uL (0.83-4.51); Absolute Neutrophil Count 6.9 X10^3/uL (2.0-7.7); Basophil% 0.9 % (0-1); Eosinophil# 0.28 X10^3/uL; Eosinophils% 2.4 % (0-5); Hemoglobin 15.1 g/dL (12.0-15.0); Lymphocyte # 3.06 X10^3/ul (0.83-4.51); Lymphocyte % 26.5 % (19-41); Mean Corp Hgb Conc 34.3 g/dL (32-36); Mean Corpuscular Hgb 29.4 pg (27.0-32.0); Mean Corpuscular Volume 85.8 fL (81-99); Mean Platelet Vol. 9.7 fl (6.2-12.0); Monocyte# 1.16 X10^3/uL; Monocyte% 10.1 % (0-10); NRBC Flagged by Analyzer 0 % (0-5); Neutrophil % 59.8 % (47-70); Platelet Count 315 K/mm3 (150-450); RBC Distribution Width CV 12.6 % (11.6-14.6); RBC Distribution Width SD 39.6 fl (35.1-43.9); Red Blood Count 5.13 M/mm3 (4.2-5.4); White Blood Count 11.5 K/mm3 (4.4-11.0)
[2024-08-08 07:37] VITALS: BMI 40.5
[2024-08-08] MEDS: Famotidine 200 MG/20 ML MDV 20 MG in 0.9% Normal Saline (Pres. free 8 ML 300 MG IV (07:56)
[2024-08-08 08:13] VITALS: BP 148/90; PULSE 66; RESP 18; O2SAT 98
[2024-08-08 08:55] LABS: Anion Gap 13 (5-15); BUN 10 mg/dL (4-19); BUN/Creat Ratio 11.3 RATIO (10-20); Calcium,Total 8.6 mg/dL (7.6-11.0); Chloride 96 mmol/L (98-108); Creatinine, Serum 0.89 mg/dL (0.70-1.20); EST Glomerular Filtration Rate 68 (>60); Estimated Creatinine Clearance 60.58 ml/min (50-250); Glucose 310 mg/dL (70-99); Potassium 2.7 mmol/L (3.3-5.1); Sodium Level 134 mmol/L (133-145)
[2024-08-08 09:00] VITALS: BP 125/80; PULSE 68; RESP 18; O2SAT 98
[2024-08-08] MEDS: Potassium Chloride Oral Soln 20 MEQ/15 ML UDC 40 MEQ PO (09:12)
[2024-08-08 10:00] VITALS: BP 116/95; PULSE 71; RESP 18; O2SAT 98
--- NOTE | 2024-08-08 10:00 | CM.ED ---
Social Work Date of referral: 08/08/24 Reason for referral: Advanced Care Directives follow up needed. Referred by: Social Work Identification Patient provided consent for social work visit. sample worker introduced herself and requested bring in a copy of her Living Will/Advanced Care Directives which patient stated she would. sample worker educated patient that she can bring them in at her next appointment or drop them off when out/about in the community which patient stated she would. No other questions/concerns. Georgie Silva, INSTANTIZER OPERATOR, HAUL DRIVER
[2024-08-08 11:00] VITALS: BP 129/67; PULSE 71; RESP 18; O2SAT 98
[2024-08-08 11:25] VITALS: BP 143/90; PULSE 72; RESP 18; TEMP 36.6; O2SAT 98
== END 2024-08-08 11:29 | disposition home or self-care (01) ==
PROVIDERS: Emergency Provider Emergency Medicine; PCP Family Medicine; Visit Provider Emergency Medicine
DX: T78.3XXA Angioneurotic edema, initial encounter (principal); E11.9 Type 2 diabetes mellitus without complications; E78.00 Pure hypercholesterolemia, unspecified; I10 Essential (primary) hypertension; G47.33 Obstructive sleep apnea (adult) (pediatric); Z79.899 Other long term (current) drug therapy; Z70.2 Counseling related to sexual behavior and orientation of third party; X58.XXXA Exposure to other specified factors, initial encounter; Z86.16 Personal history of COVID-19
CPT/HCPCS: 80048; 85025; 96374; 96375; 99285; A4216

== ENCOUNTER → 2024-09-21 | Outpatient (CLI) | payer MEDICARE, OTHER, SELFPAY ==
[2024-09-21 13:01] LABS: Anion Gap 11 (5-15); BUN 14 mg/dL (4-19); BUN/Creat Ratio 16.9 RATIO (10-20); Calcium,Total 8.9 mg/dL (7.6-11.0); Carbon Dioxide 27.1 mmol/L (21.0-32.0); Chloride 99 mmol/L (98-108); Glucose 287 mg/dL (70-99); Potassium 3.5 mmol/L (3.3-5.1)
== END | disposition home or self-care (01) ==
LOC: BFHLAB 10:00
PROVIDERS: PCP Family Medicine; Visit Provider Family Medicine
DX: E11.9 Type 2 diabetes mellitus without complications (principal); E87.6 Hypokalemia
CPT/HCPCS: 36415; 80048; 83036

== ENCOUNTER → 2024-10-16 | Outpatient (CLI) | payer MEDICARE, OTHER, SELFPAY ==
[2024-10-16 13:20] VITALS: BP 175/74; PULSE 60; RESP 16; O2SAT 95; BMI 36.6
[2024-10-16 13:27] VITALS: PULSE 74
[2024-10-16] MEDS: Nitroglycerin SL (ED/IMG/CATH) 0.4 MG TABLET SL (13:27)
[2024-10-16 14:04] VITALS: BP 212/76; PULSE 65; RESP 18; O2SAT 97
--- NOTE | 2024-10-16 17:26 | CCTA.WCONT ---
CCTA w/Cont Coronary Arteries Date of Study:: 10/16/24 cp Coronary Calcium Scoring: High-resolution Computed Tomographic imaging of the chest was performed on [10/16/24 ], with particular attention paid to the coronary arteries. Intravenous contrast agent was administered per protocol and images reconstructed and displayed. LEFT MAIN CORONARY ARTERY: Arises from the left coronary And bifurcates the left anterior descending artery circumflex artery no significant plaquing is noted. [] LEFT ANTERIOR DESCENDING CORONARY ARTERY: Medium size vessel coursing towards the apex of the ventricle with no evidence of stenosis noted and no atherosclerotic plaquing present [] LEFT CIRCUMFLEX CORONARY ARTERY: Dominant vessel with no significant atherosclerotic plaquing present and no significant stenosis present. [] RIGHT CORONARY ARTERY: Nondominant right coronary artery with no significant stenosis Calcium Scoring Interpretation: Different methods to categorize the overall amount of coronary plaque. Overall amount CAC SIS Visual of coronary plaque P1 Mild -100 <2 1-2 vessels with mild amount of plaque P2 Moderate 101-300 3-4 1-2 vessels with moderate amount, 3 vessels with mild amount of plaque P3 Severe 301-999 5-7 3 vessels with moderate amount, 1 vessel with severe amount of plaque P4 Extensive >1000 >8 2-3 vessels with severe amount of plaque Conclusion: No significant atherosclerotic plaquing or stenosis present
== END | disposition home or self-care (01) ==
LOC: CT 12:59
PROVIDERS: PCP Family Medicine; Referring Provider Internal Medicine Cardiovascular Disease; Visit Provider Internal Medicine Cardiovascular Disease
DX: R07.89 Other chest pain (principal)
CPT/HCPCS: 75574; Q9967

== ENCOUNTER → 2025-01-12 | Outpatient (CLI) | payer MEDICARE, OTHER, SELFPAY ==
[2025-01-12 15:36] LABS: Cholesterol 127 mg/dL (<=200); Low Density Lipoprotein Calc. 67 mg/dL; Triglycerides 106 mg/dL; Very Low Density Lipoprotein 21 mg/dL (5-40); cholesterol:hdl ratio screen 3.18
[2025-01-12 15:49] LABS: Creatinine, Urine (random) 218.00 mg/dL (28.00-217.00); Microalbumin,Random Urine 56.1 mg/L (<20 mg/L)
== END | disposition home or self-care (01) ==
LOC: MTLAB 13:17
PROVIDERS: PCP Family Medicine; Referring Provider Family Medicine; Visit Provider Family Medicine
DX: E11.9 Type 2 diabetes mellitus without complications (principal)
CPT/HCPCS: 36415; 80061; 82043; 82570

== ENCOUNTER 2025-01-24 13:43 | Inpatient (IN) | payer MEDICARE, OTHER, SELFPAY ==
[2025-01-24] VITALS (12 sets, daily range): BP systolic 93–162; BP diastolic 65–108; PULSE 67–128; RESP 12–23; TEMP 36.4–36.6; O2SAT 94–98; BMI 38.1; BMI 36.6
--- NOTE | 2025-01-24 15:27 | EKG12_ITS ---
Test Reason : SYNCOPE
--- NOTE | 2025-01-24 15:27 | RAD_ITS ---
PROCEDURE: RAD/Chest PA and Lateral
--- NOTE | 2025-01-24 15:28 | EX.ED.DYSGE1 ---
HPI History of Present Illness Chief Complaint: Syncope Informant: patient Onset/Context/Timing Onset: Today Context: Sudden Onset Timing: Intermittent Quality: Dizzy, lightheaded Location: Generalized Worsened by: Movement, standing Relieved by: Rest Narrative Narrative: Patient presents with a syncopal episode that occurred today. Patient states she felt dizzy and lightheaded. Patient states she put her head on the table and then woke up on the floor. Patient states she tried to get up from the floor and then passed out again. Patient describes her dizziness as lightheadedness. Patient states it is worse with movement and better with rest. Patient states it comes and goes. Patient denies any chest pain or palpitations. Patient denies any nausea or vomiting. Patient denies any fevers or chills. [facility] Medical History COVID PAC (premature atrial contraction) Dyspnea on exertion Chest pressure Vitamin B12 deficiency PVC (premature ventricular contraction) Chronic dyspnea Liver fibrosis Post-menopausal Alcohol use High cholesterol BiPAP (biphasic positive airway pressure) dependence DM type 2, goal HbA1c < 7% Recent weight loss Family history of breast cancer Intertrigo Left shoulder pain Right shoulder pain Chronic thoracic back pain Chronic neck pain Macromastia Gallstones Cataracts, bilateral Back problem Sleep apnea CLARY (obstructive sleep apnea) Tubular adenoma of colon P-ANCA titer positive Diverticular disease NAFLD (nonalcoholic fatty liver disease) Wears glasses Low iron Dietary restriction Difficulty swallowing History of hiatal hernia History of diverticulitis Shortness of breath on exertion History of edema History of echocardiogram History of stress test History of irregular heartbeat CPAP (continuous positive airway pressure) dependence Fatty liver Angioedema Vitamin D deficiency Nausea Heartburn Early satiety Diarrhea Anxiety Phantosmia Hypokalemia Hyperlipidemia Functional dyspepsia Obesity SOB (shortness of breath) Depression Diabetes GERD (gastroesophageal reflux disease) Non-smoker Sleep apnea Hypertension Morbid obesity Severe tongue swelling Home Medications ?Medication ?Instructions ?Recorded ?Last Taken ?Type vitamin E mixed 400 unit capsule 800 unit PO HS 01/24/22 Unknown History hydrochlorothiazide 25 mg tablet 25 mg PO DAILY 01/23/23 Unknown History potassium chloride 20 mEq 20 meq PO DAILY 01/23/23 Unknown History tablet,extended release(part/cryst) (Klor-Con M) venlafaxine 75 mg capsule,extended 75 mg PO DAILY 01/23/23 Unknown History release 24 hr metoprolol succinate 50 mg 50 mg PO DAILY 11/25/23 Unknown History tablet,extended release 24 hr atorvastatin 80 mg tablet 80 mg PO QHS #30 tabs 11/26/23 Unknown Rx clopidogrel 75 mg tablet 75 mg PO DAILY #30 tabs 11/26/23 Unknown Rx cholecalciferol (vitamin D3) 1,250 mcg PO QMONTH 03/05/24 Unknown History insulin glargine 100 unit/mL (3 10 unit subcut DAILY 01/24/25 Unknown History mL) subcutaneous pen (Lantus Solostar U-100 Insulin) tirzepatide 5 mg/0.5 mL 5 mg subcut QWEEK 01/24/25 Unknown History subcutaneous pen injector (Mounjaro) Allergy/AdvReac Type Severity Reaction Status Date / Time aspirin Allergy Severe Tongue Verified 01/24/25 13:44 Swelling lisinopril Allergy Angioedema Verified 01/24/25 13:44 Family History Mother Myocardial infarction Abnormality of hormone Father Hypertension Cancer skin Sister Breast cancer Daughter History of blood clots Surgical History H/O bilateral breast reduction surgery History of esophagogastroduodenoscopy (EGD) History of cataract surgery (~02/2021) History of tubal ligation Hx of colonoscopy History of tonsillectomy and adenoidectomy History of cholecystectomy History of appendectomy Social History Smoking Status: Never smoker alcohol intake: current alcohol intake frequency: holidays/special occasions only substance use type: does not use caffeine: Yes (diet pop) Type: carbonated beverages additional social history: Does Not Take Aspirin Does Take Ibuprofen As Needed ROS ROS ED Constitutional Constitutional ED: Denies chills or fever(s) Eyes Eyes: Denies blurry vision or change in vision ENT ENT ED: Denies rhinorrhea or sore throat Cardiovascular Cardiovascular: Denies chest pain or palpitations Respiratory/Chest Respiratory/Chest: Denies cough or dyspnea Gastrointestinal Gastrointestinal: Denies nausea or vomiting Genitourinary Genitourinary ED: Denies dysuria or hematuria Musculoskeletal Musculoskeletal: Denies back pain or neck pain Integumentary Denies abscess or rash Neurologic Neurologic: Denies headache(s) or weakness Allergic/Immunologic Allergic/Immunologic ED: Denies mouth swelling or urticaria EXAM Physical Exam Const Vital Signs: 01/24/25 13:45 01/24/25 13:47 01/24/25 15:00 Temperature 97.6 F L Temperature Source Oral Pulse Rate 116 H 128 H Pulse Rate [Lying] Pulse Rate [Sitting (for 1 minute prior to obtaining)] Pulse Rate [Standing (for 1 minute prior to obtaining)] Respiratory Rate 16 12 Respiratory Effort Normal Non-Labored Blood Pressure 129/103 H 129/103 H Blood Pressure [Lying] Blood Pressure [Sitting (for 1 minute prior to obtaining)] Blood Pressure [Standing (for 1 minute prior to obtaining)] Blood Pressure Mean 111 111 Blood Pressure Mean [Lying] Blood Pressure Mean [Sitting (for 1 minute prior to obtaining)] Blood Pressure Mean [Standing (for 1 minute prior to obtaining)] Pulse Ox 98 97 Oxygen Delivery Method Room Air Room Air 01/24/25 15:37 01/24/25 15:47 01/24/25 15:58 Temperature Temperature Source Pulse Rate 124 H 67 Pulse Rate [Lying] 67 Pulse Rate [Sitting (for 1 minute prior to obtaining)] 102 H Pulse Rate [Standing (for 1 minute prior to obtaining)] 95 Respiratory Rate 23 H Respiratory Effort Blood Pressure 96/65 Blood Pressure [Lying] 106/73 Blood Pressure [Sitting (for 1 minute prior to obtaining)] 93/69 Blood Pressure [Standing (for 1 minute prior to obtaining)] 93/65 Blood Pressure Mean 75 Blood Pressure Mean [Lying] 84 Blood Pressure Mean [Sitting (for 1 minute prior to obtaining)] 77 Blood Pressure Mean [Standing (for 1 minute prior to obtaining)] 74 Pulse Ox 95 Oxygen Delivery Method Room Air 01/24/25 17:00 Temperature Temperature Source Pulse Rate 72 Pulse Rate [Lying] Pulse Rate [Sitting (for 1 minute prior to obtaining)] Pulse Rate [Standing (for 1 minute prior to obtaining)] Respiratory Rate 17 Respiratory Effort Blood Pressure 126/96 H Blood Pressure [Lying] Blood Pressure [Sitting (for 1 minute prior to obtaining)] Blood Pressure [Standing (for 1 minute prior to obtaining)] Blood Pressure Mean 106 Blood Pressure Mean [Lying] Blood Pressure Mean [Sitting (for 1 minute prior to obtaining)] Blood Pressure Mean [Standing (for 1 minute prior to obtaining)] Pulse Ox 95 Oxygen Delivery Method Room Air Positive well nourished and well developed General Appearance ED: well developed and NAD HEENT Reports moist mucous membranes Neck supple and no JVD Resp normal respiratory effort and clear to auscultation bilaterally Cardio Rate: tachycardic Rhythm: abnormal rhythm irregularly irregular GI non-tender and non-distended Palpation: soft Extremity normal to inspection General Extremety ED: Negative for edema or tenderness General Extremity: Negative for edema Neuro oriented x3, CN's II-XII intact bilaterally and no sensory deficits noted Sensorium / Orientation: alert Motor Exam: strength 5/5 throughout Psych mental status grossly normal MDM MDM MDM Narrative Medical decision making narrative: Differential diagnosis includes cardiac dysrhythmia, cardiac ischemia, vasovagal syncope, pneumonia, bronchitis, intracranial bleeding, stroke, and anxiety. EKG will be obtained to assess for cardiac dysrhythmia and cardiac ischemia. CT scan of the brain will be obtained to assess for intracranial bleeding and stroke. Chest x-ray will be obtained to assess for pneumonia and bronchitis. CBC will be obtained to assess for leukocytosis and anemia. Basic metabolic profile will be obtained to assess for electrolyte abnormality and renal function. PT with INR and PTT will be obtained to assess for coagulopathy. High-sensitivity troponin will be obtained to assess for cardiac ischemia. 2-hour repeat high-sensitivity troponin will be obtained to assess for ongoing cardiac ischemia. COVID-19, influenza, and RSV PCR will be obtained to assess for viral illness. History & Record Review Additional record(s) reviewed:: Prior outpatient record, Prior ED visit and Prior labs Lab Data Attestation: I reviewed the patient's lab results. Lab results narrative: CBC was reviewed and was within normal limits. Basic metabolic profile was reviewed. Glucose was mildly elevated at 159. BUN was slightly elevated at 20. The remainder is within normal limits. PT with INR and PTT were reviewed and were within normal limits. Initial high-sensitivity troponin was reviewed and was 13. 2-hour repeat high-sensitivity troponin was reviewed and was normal at 12. COVID-19 PCR was reviewed and was negative. Influenza PCR was reviewed and was negative for influenza A and influenza B. RSV PCR was reviewed and was negative. Labs: Laboratory Results - last 24 hr 01/24/25 01/24/25 15:50 17:30 WBC 10.6 RBC 5.07 Hgb 14.6 Hct 44.3 MCV 87.4 MCH 28.8 MCHC 33.0 RDW Std Deviation 42.6 RDW Coeff of Leonora 13.5 Plt Count 320 MPV 9.8 Immature Gran % (Auto) 0.300 Neut % (Auto) 66.0 Lymph % (Auto) 21.9 Hodgeman % (Auto) 9.9 Eos % (Auto) 0.9 Baso % (Auto) 1.0 Absolute Neuts (auto) 7.0 Absolute Lymphs (auto) 2.31 Nucleated RBC % 0 PT 13.2 INR 1.0 APTT 29.3 Sodium 140 Potassium 3.6 Chloride 102 Carbon Dioxide 27.7 Anion Gap 10 BUN 20 H Creatinine 0.99 Estim Creat Clear Calc 52.63 Est GFR (MDRD) Non-Af 59 L BUN/Creatinine Ratio 20.4 H Glucose 159 H Calcium 9.3 Troponin T High Sens 13 Troponin T Hi Sens 2 Hr 12 Radiography Chest X-Ray - ED: 2 View, Read by ED Physician, Read by Radiologist and No Acute Disease Diagnostic Testing: Clinical Impression(s) from Imaging Studies Chest X-Ray 01/24/25 15:27 IMPRESSION: No acute cardiopulmonary disease. Reading Location: [facility] Brain CT 01/24/25 15:55 IMPRESSION: No acute intracranial abnormality. Reading Location: [facility] PA and lateral chest x-ray was obtained. There are 2 views. On my independent interpretation, lung camara are clear. There is normal cardiac silhouette. Bony thorax is normal. There is no acute process noted. Radiologist also interpreted the x-ray and agrees. CT scan of the brain was obtained. There is no acute intracranial abnormality. This was interpreted by the radiologist and was also independently reviewed by myself. EKG Initial EKG: Attestation: I personally reviewed and interpreted this EKG as follows: Interpretation: Atrial Flutter (101) and Non-Specific ST Changes Comments: EKG was obtained. On my independent interpretation, it shows atrial fibrillation/flutter with a rate of 101. QRS interval was normal at 72 ms. QTc interval was normal at 425 ms. There is borderline left axis deviation at -2. There are nonspecific ST-T wave changes noted. Prior EKG tracings: available for review Prior: Changed (Compared to EKG dated 11/25/2023, the atrial fibrillation/flutter is new.) Treatment and Re-Evaluation :: Patient was given IV fluids. Patient was given a dose of Cardizem. Patient's heart rate improved but she remained in atrial fibrillation/flutter. Case was discussed with the hospitalist. He recommended contacting cardiology. Case was discussed with Dr. Paz from cardiology. He recommended admission to the hospital. He recommended starting patient on Eliquis. This was ordered. Case was discussed with the hospitalist. He will be in to evaluate the patient. Patient will be admitted. Patient and family understand and are agreeable with the plan. All questions were answered. Discharge Plan Triage Chief Complaint: Syncope ED Provider: Tushar Mack Dx/Rx/DC Orders Clinical Impression: Syncope and collapse, Atrial fibrillation/flutter, Diabetes, Hypertension Prescriptions: No Action vitamin E mixed 400 unit capsule 800 unit PO HS venlafaxine 75 mg capsule,extended release 24hr 75 mg PO DAILY hydrochlorothiazide 25 mg tablet 25 mg PO DAILY potassium chloride [Klor-Con M20] 20 mEq tablet,ER particles/crystals 20 meq PO DAILY metoprolol succinate 50 mg tablet extended release 24 hr 50 mg PO DAILY atorvastatin 80 mg Tablet 80 mg PO QHS Qty: 30 0RF clopidogrel 75 mg Tablet 75 mg PO DAILY Qty: 30 0RF cholecalciferol (vitamin D3) 1,250 mcg PO QMONTH Mounjaro 5 mg/0.5 mL pen injector 5 mg subcut QWEEK insulin glargine [Lantus Solostar U-100 Insulin] 100 unit/mL (3 mL) insulin pen 10 unit subcut DAILY Primary Care Provider: Dejuan Chavez Referrals: Dejuan Chavez DO [Primary Care Provider, Family Practice] Print Language: Guinean
[2025-01-24] MEDS: 0.9% Normal Saline (1000mL) 1,000 ML 1000 ML IV (15:38)
--- NOTE | 2025-01-24 15:55 | CT_ITS ---
PROCEDURE: CT/Brain/Head without Contrast
[2025-01-24 16:04] LABS: Hematocrit 44.3 % (37-47); Hemoglobin 14.6 g/dL (12.0-15.0); Immature Granulocytes Count 0.030 X10^3/uL (0.0-0.0); Mean Corp Hgb Conc 33.0 g/dL (32-36); Mean Corpuscular Volume 87.4 fL (81-99); Mean Platelet Vol. 9.8 fl (6.2-12.0); NRBC Flagged by Analyzer 0 % (0-5); Platelet Count 320 K/mm3 (150-450); RBC Distribution Width CV 13.5 % (11.6-14.6); RBC Distribution Width SD 42.6 fl (35.1-43.9); Red Blood Count 5.07 M/mm3 (4.2-5.4); White Blood Count 10.6 K/mm3 (4.4-11.0)
[2025-01-24 16:12] LABS: Partial Thromboplast Time 29.3 Seconds (24.1-36.2); Prothrombin Time (Protime)PT. 13.2 SECONDS (11.7-14.9)
[2025-01-24 16:37] LABS: Anion Gap 10 (5-15); BUN 20 mg/dL (4-19); BUN/Creat Ratio 20.4 RATIO (10-20); Calcium,Total 9.3 mg/dL (7.6-11.0); Carbon Dioxide 27.7 mmol/L (21.0-32.0); Chloride 102 mmol/L (98-108); Estimated Creatinine Clearance 52.63 ml/min (50-250); Glucose 159 mg/dL (70-99); Potassium 3.6 mmol/L (3.3-5.1)
[2025-01-24 16:49] LABS: Troponin T High Sensitivity 13 ng/L (<=14)
[2025-01-24 17:51] LABS: Troponin T High Sens 2 HR 12 ng/L (<=14)
--- NOTE | 2025-01-24 18:27 | PCM.HP.STD ---
HPI - General General Date of Admission: 01/24/25 Date of Service: 01/24/25 Chief Complaint: Syncope HPI Narrative VARGAS RODRIGUEZ, is a 74 F who presented to [facility] ED on 01/24/2025 with syncope. Medical history significant for class II obesity, CLARY, type 2 diabetes mellitus, nonobstructive carotid artery disease, hypertension, hyperlipidemia, and anxiety/depression. She lives at home with her mother who is 97. She reports a good functional status at baseline. She reports having a few presyncopal episodes yesterday and the symptoms resolved with her sitting down and putting her head down on the table. Today, she had another similar episode but she put her head down on the table and then passed out for period time. When she woke up, she tried to stand up but then passed out again. Does not report hitting her head on the ground. EMS then brought her in for further evaluation. In the ED she was mildly hypotensive to the 90s to 100 systolic and tachycardic to the low 100s. EKG showed A-fib/flutter with heart rate 101. Patient has no prior diagnosis of A-fib/flutter. She otherwise was afebrile and stable on room air at rest. CBC and BMP were benign. Troponins negative x 2. Chest x-ray and CT brain were unremarkable. ED physician discussed case with cardiology who recommended admitting the patient for further management. Hospitalist was then contacted for admission. I saw the patient at bedside in the ED. Patient was sitting back fairly comfortably in bed, conversing normally, in no acute distress. She denied any dizziness or lightheadedness currently. She denied any palpitations. She has chronic mild lower extremity swelling that is stable for her. Her last A1c was 12.4% in September. She reports taking her Lantus and Mounjaro as prescribed. She does report feeling thirsty frequently and having frequent urine output. She denies any recent illnesses. No other acute concerns currently. Will be admitted for further management. PENDING SALE TO [facility] Medical History COVID PAC (premature atrial contraction) Dyspnea on exertion Chest pressure Vitamin B12 deficiency PVC (premature ventricular contraction) Chronic dyspnea Liver fibrosis Post-menopausal Alcohol use High cholesterol BiPAP (biphasic positive airway pressure) dependence DM type 2, goal HbA1c < 7% Recent weight loss Family history of breast cancer Intertrigo Left shoulder pain Right shoulder pain Chronic thoracic back pain Chronic neck pain Macromastia Gallstones Cataracts, bilateral Back problem Sleep apnea CLARY (obstructive sleep apnea) Tubular adenoma of colon P-ANCA titer positive Diverticular disease NAFLD (nonalcoholic fatty liver disease) Wears glasses Low iron Dietary restriction Difficulty swallowing History of hiatal hernia History of diverticulitis Shortness of breath on exertion History of edema History of echocardiogram History of stress test History of irregular heartbeat CPAP (continuous positive airway pressure) dependence Fatty liver Angioedema Vitamin D deficiency Nausea Heartburn Early satiety Diarrhea Anxiety Phantosmia Hypokalemia Hyperlipidemia Functional dyspepsia Obesity SOB (shortness of breath) Depression Diabetes GERD (gastroesophageal reflux disease) Non-smoker Sleep apnea Hypertension Morbid obesity Severe tongue swelling Home Medications ?Medication ?Instructions ?Recorded ?Last Taken ?Type vitamin E mixed 400 unit capsule 800 unit PO HS 01/24/22 Unknown History hydrochlorothiazide 25 mg tablet 25 mg PO DAILY 01/23/23 Unknown History potassium chloride 20 mEq 20 meq PO DAILY 01/23/23 Unknown History tablet,extended release(part/cryst) (Klor-Con M) venlafaxine 75 mg capsule,extended 75 mg PO DAILY 01/23/23 Unknown History release 24 hr metoprolol succinate 50 mg 50 mg PO DAILY 11/25/23 Unknown History tablet,extended release 24 hr atorvastatin 80 mg tablet 80 mg PO QHS #30 tabs 11/26/23 Unknown Rx clopidogrel 75 mg tablet 75 mg PO DAILY #30 tabs 11/26/23 Unknown Rx cholecalciferol (vitamin D3) 1,250 mcg PO QMONTH 03/05/24 Unknown History insulin glargine 100 unit/mL (3 10 unit subcut DAILY 01/24/25 Unknown History mL) subcutaneous pen (Lantus Solostar U-100 Insulin) tirzepatide 5 mg/0.5 mL 5 mg subcut QWEEK 01/24/25 Unknown History subcutaneous pen injector (Prietounrosyro) Allergy/AdvReac Type Severity Reaction Status Date / Time aspirin Allergy Severe Tongue Verified 01/24/25 13:44 Swelling lisinopril Allergy Angioedema Verified 01/24/25 13:44 Family History Mother Myocardial infarction Abnormality of hormone Father Hypertension Cancer skin Sister Breast cancer Daughter History of blood clots Surgical History H/O bilateral breast reduction surgery History of esophagogastroduodenoscopy (EGD) History of cataract surgery (~02/2021) History of tubal ligation Hx of colonoscopy History of tonsillectomy and adenoidectomy History of cholecystectomy History of appendectomy Social History Smoking Status: Never smoker alcohol intake: current alcohol intake frequency: holidays/special occasions only substance use type: does not use caffeine: Yes (diet pop) Type: carbonated beverages additional social history: Does Not Take Aspirin Does Take Ibuprofen As Needed ROS Constitutional Constitutional: Denies chills, fatigue, fever(s) or weakness Eyes Eyes: Denies change in vision Cardiovascular Cardiovascular: Denies chest pain, dyspnea on exertion, edema, lightheadedness, orthopnea or palpitations Respiratory/Chest Respiratory/Chest: Denies cough, shortness of breath at rest or wheezing Gastrointestinal Gastrointestinal: Denies abdominal pain Genitourinary Genitourinary: Denies dysuria Musculoskeletal Musculoskeletal: Denies arthralgias or myalgias Neurologic Neurologic: Denies dizziness, focal weakness, headache(s), numbness or tingling Vital Signs Vital Signs Vital Signs: 01/24/25 13:45 01/24/25 13:47 01/24/25 15:00 Temperature 97.6 F L Temperature Source Oral Pulse Rate 116 H 128 H Pulse Rate [Lying] Pulse Rate [Sitting (for 1 minute prior to obtaining)] Pulse Rate [Standing (for 1 minute prior to obtaining)] Respiratory Rate 16 12 Respiratory Effort Normal Non-Labored Blood Pressure 129/103 H 129/103 H Blood Pressure [Lying] Blood Pressure [Sitting (for 1 minute prior to obtaining)] Blood Pressure [Standing (for 1 minute prior to obtaining)] Blood Pressure Mean 111 111 Blood Pressure Mean [Lying] Blood Pressure Mean [Sitting (for 1 minute prior to obtaining)] Blood Pressure Mean [Standing (for 1 minute prior to obtaining)] Pulse Ox 98 97 Oxygen Delivery Method Room Air Room Air 01/24/25 15:37 01/24/25 15:47 01/24/25 15:58 Temperature Temperature Source Pulse Rate 124 H 67 Pulse Rate [Lying] 67 Pulse Rate [Sitting (for 1 minute prior to obtaining)] 102 H Pulse Rate [Standing (for 1 minute prior to obtaining)] 95 Respiratory Rate 23 H Respiratory Effort Blood Pressure 96/65 Blood Pressure [Lying] 106/73 Blood Pressure [Sitting (for 1 minute prior to obtaining)] 93/69 Blood Pressure [Standing (for 1 minute prior to obtaining)] 93/65 Blood Pressure Mean 75 Blood Pressure Mean [Lying] 84 Blood Pressure Mean [Sitting (for 1 minute prior to obtaining)] 77 Blood Pressure Mean [Standing (for 1 minute prior to obtaining)] 74 Pulse Ox 95 Oxygen Delivery Method Room Air 01/24/25 17:00 Temperature Temperature Source Pulse Rate 72 Pulse Rate [Lying] Pulse Rate [Sitting (for 1 minute prior to obtaining)] Pulse Rate [Standing (for 1 minute prior to obtaining)] Respiratory Rate 17 Respiratory Effort Blood Pressure 126/96 H Blood Pressure [Lying] Blood Pressure [Sitting (for 1 minute prior to obtaining)] Blood Pressure [Standing (for 1 minute prior to obtaining)] Blood Pressure Mean 106 Blood Pressure Mean [Lying] Blood Pressure Mean [Sitting (for 1 minute prior to obtaining)] Blood Pressure Mean [Standing (for 1 minute prior to obtaining)] Pulse Ox 95 Oxygen Delivery Method Room Air Weight Weight: 94.6 kg Body Mass Index (BMI) 38.1 Physical Exam Const alert, oriented x3, no apparent distress and average body habitus Constitutional Narrative: Pleasant elderly female, class II obesity, sitting back comfortably in bed, conversing normally, in no acute distress. General Appearance: cooperative and comfortable HEENT normocephalic, head/scalp atraumatic, hearing grossly normal bilaterally, nasal mucous membranes and turbinates normal and moist oral mucous membranes Eyes PERRL, EOMs intact bilaterally and conjunctivae normal Neck full ROM Chest inspection of chest normal Resp normal respiratory effort, normal air movement, no use of accessory muscles and clear to auscultation bilaterally Cardio no murmurs and peripheral pulses 2+ throughout Cardio Narrative: A-fib/flutter, rate controlled. GI normal to inspection, nondistended, normoactive bowel sounds, soft to palpation, non-tender and non-distended Back/Spine normal ROM Extremity normal to inspection and full ROM Extremity Narrative: +1 lower extremity edema bilaterally, chronic. Skin no rashes or lesions noted Psych mental status grossly normal Results Lab / Micro Data 01/24/25 15:50 01/24/25 15:50 Labs: Laboratory Results - last 24 hr 01/24/25 15:50: WBC 10.6, RBC 5.07, Hgb 14.6, Hct 44.3, MCV 87.4, MCH 28.8, MCHC 33.0, RDW Std Deviation 42.6, RDW Coeff of Leonora 13.5, Plt Count 320, MPV 9.8, Immature Gran % (Auto) 0.300, Neut % (Auto) 66.0, Lymph % (Auto) 21.9, Garland % (Auto) 9.9, Eos % (Auto) 0.9, Baso % (Auto) 1.0, Absolute Neuts (auto) 7.0, Absolute Lymphs (auto) 2.31, Nucleated RBC % 0, PT 13.2, INR 1.0, APTT 29.3, Sodium 140, Potassium 3.6, Chloride 102, Carbon Dioxide 27.7, Anion Gap 10, BUN 20 H, Creatinine 0.99, Estim Creat Clear Calc 52.63, Est GFR (MDRD) Non-Af 59 L, BUN/Creatinine Ratio 20.4 H, Glucose 159 H, Calcium 9.3, Troponin T High Sens 13 01/24/25 17:30: Troponin T Hi Sens 2 Hr 12 Micro: Microbiology 01/24/25 15:40 Mucosa - Nose SARS-CoV-2, Influenza & RSV (PCR) - Final Imaging Radiology Impression Chest X-Ray 01/24/25 15:27 IMPRESSION: No acute cardiopulmonary disease. Reading Location: [id number] Brain CT 01/24/25 15:55 IMPRESSION: No acute intracranial abnormality. Reading Location: [id number] Assessment & Plan Assessment/Plan (1) Syncope and collapse: (2) Atrial fibrillation/flutter: PLAN: Plan Patient is a 74-year-old female who presented to [facility] ED on 01/24/2025 with syncope. 1. Syncope ? Admit under inpatient status to PCU. Cardiology consulted. Suspect multifactorial due to dehydration in setting of poorly controlled diabetes and home hydrochlorothiazide along with decreased preload due to new onset A-fib/flutter. Orthostatics negative but blood pressure did drop from the 100s over 70s lying down to the 90s over 60s with sitting and standing. Last echo in 12/09 showed EF 65%, no valvular issues, no concerning findings. Repeat echo ordered. Given 1 L of fluids in the ED, will give another 1 L of fluids overnight. Further management as below. Appreciate cardiology recommendations. 2. New onset A-fib/flutter ? Cardiology consulted. Follows with outpatient cardiology as below. EKG with A-fib/flutter with rate 101 in the ED. Given IV Cardizem bolus with rate improvement to the 70s but remained in A-fib. Given normal EF on last echo as above, will change home Toprol to Lopressor 25 mg twice daily. Will start Eliquis 5 mg twice daily as well. Echo ordered as above. Appreciate cardiology recs. 3. Poorly controlled type 2 diabetes mellitus ? Last A1c 12.4% in September. Repeat A1c ordered. Glucose 159 on admit. Patient does not check blood sugars frequently at home. Will increase to Lantus 10 units twice daily and start Humalog 5 units with meals plus sliding scale insulin. Patient is only on Lantus and tirzepatide at home; could consider discussing metformin and other oral diabetes medications that she could take on discharge if she is not willing to start prandial insulin. 4. Nonobstructive carotid artery disease, hypertension, hyperlipidemia ? Follows with cardiology, last office visit in July. Hypotensive in the ED as above. Treating with p.o. Lopressor as above. Will hold home hydrochlorothiazide. Given new literature on increased bleeding risk with dual therapy with DOAC and antiplatelet agent, will hold Plavix as we are starting Eliquis as above. Continue home statin. Will defer to cardiology on further medication management. 5. Anxiety/depression ? Stable. Continue home venlafaxine. 6. Class II obesity with CLARY ? BMI 36 on admit. Complicates hospital course and care. Continue home PAP therapy at night. DVT prophylaxis: Not indicated, on Eliquis CODE STATUS: Full code, verified Expected disposition: Home, 2 to 3 days Total clinical time spent by myself addressing the patient's medical issues, reviewing all the data, and collaborating with patient's care team: 78 minutes. Charges/Coding Visit Charges Inpatient E&M: 26874 Init Hosp L3
[2025-01-24] MEDS: APIXABAN 5 MG TABLET 10 MG PO (18:43)
--- NOTE | 2025-01-24 19:21 | ECHOCS_ITS ---
Reason For Study ECHO/Echo Complete W/ Contrast
[2025-01-24 19:53] LABS: Troponin T High Sens 4 HR 11 ng/L (<=14)
[2025-01-24] MEDS: Insulin Glargine-YFGN 100 UNIT/ML Pen 10 UNIT SC (19:53)
[2025-01-24] MEDS: 0.9% Saline Lock 10 ML Syringe IV (19:54)
[2025-01-24] MEDS: Lactated Ringers 1,000 ML 100 ML IV (19:54)
[2025-01-24] MEDS: MELATONIN 3 MG TABLET PO (23:37)
[2025-01-25] VITALS (7 sets, daily range): BP systolic 114–154; BP diastolic 98–113; PULSE 86–98; RESP 16–18; TEMP 35.6–36.6; O2SAT 93–95
--- NOTE | 2025-01-25 08:51 | PCM.CONS.C ---
Assessment & Plan Assessment/Plan (1) Syncope and collapse: PLAN: Patient reports that she started getting dizzy every time she tried to get up and moved to do anything on Saturday and this progressed to where she had a syncopal spell on Saturday. She did fall and is sore on her left shoulder and right rib cage. X-rays failed to show any significant abnormalities on the CT scan or chest x-ray. The patient was also found to be in atrial fibrillation with a heart rate of 110 bpm on her ECG in the emergency department. Troponins were negative. She was placed on metoprolol and her heart rate has remained in the 100 bpm range. She has also hydrated with saline overnight and has been up twice without any dizziness. It appears that her syncopal spell was probably multifactorial she has less than optimally treated diabetes with a hemoglobin A1c of 8.9, she was tachycardic in atrial fibrillation. She has no known prior cardiac history. She had she had a negative coronary CT angiogram October 16, 2024 when it appears that she was in sinus rhythm at that time. Recommend continue to monitor the patient on telemetry will increase beta-kavin therapy given blood pressure and heart rate. (2) Atrial fibrillation/flutter: PLAN: Is uncertain when the patient went into atrial fibs flutter. 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 She did not feel any palpitations nor was she aware of her heart rate. The patient was not in atrial fibrillation or if she was she was in a slow rate October 16, [address] she had coronary CT angiography done. Will increase metoprolol to tartrate to 50 mg twice daily and increase to 3 times daily dosing range if heart rate not controlled. The patient is currently on Eliquis 5 mg twice daily her clopidogrel has been appropriately held. The patient has been rehydrated with saline. Her dizziness has resolved and she is now up around in the room twice without any symptoms. Await 2D echocardiogram to determine final medication recommendations. Given the fact we are not certain when she went into atrial fibs would recommend 4-6 weeks of oral anticoagulation therapy before direct-current cardioversion. Will titrate medications of rate control and then consider discharge with close follow-up in ambulatory setting. 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 Apparently the patient had only been on oral medications but has been started on insulin since admission. Further treatment options will be determined by the primary service. PLAN: Plan 1. Obtain 2D echocardiogram. 2. Increase metoprolol to 50 mg twice daily. 3. Eliquis 5 mg twice daily given the patient's age and weight. 4. Further recommendations to follow once results of the titration of medications and echo are available. HPI Consult Data Date of Consult: 01/25/25 HPI Narrative Reason for Consultation: Syncope and atrial fibs/flutter HPI Narrative: VARGAS RODRIGUEZ, is a 74 F who presents with a syncopal spell where she fell to the floor and bruised her left shoulder and right rib cage yesterday. The patient was able to get up off the floor on her own. This had been preceded by progressive dizziness over the 24 hours prior to the event. Patient noted that on Saturday every time she got up and tried to move or do anything she was very dizzy was set her head down on the counter and it would slowly pass. The patient denied any palpitations she denied any shortness of breath or chest discomfort. The patient denies any lower extremity edema. She does not have any change in medications to her knowledge. She was on medicines for blood pressure and diabetic therapy. She does report that her hemoglobin A1c runs high it was 8.9 on admission yesterday. Her troponins were negative x 3 sets and her ECG was consistent with atrial fibs flutter at [address]-T wave changes. Overnight the patient was hydrated with IV fluids and she was up and around in the room twice last night without any dizziness. Patient's heart rate continues to run 100?110 on telemetry in atrial fibrillation. The patient has no idea how long she has been in atrial fibrillation she thinks has been over 6 months since she had an ECG done. However the patient did have a coronary CTA done October 2024 which was negative for any significant coronary artery plaques. At that time her heart rate was under 70 bpm and is highly unlikely she was in atrial fibrillation. This was mean that likely her atrial fibrillation started sometime after October 16, 2024. [facility] Medical History COVID PAC (premature atrial contraction) Dyspnea on exertion Chest pressure Vitamin B12 deficiency PVC (premature ventricular contraction) Chronic dyspnea Liver fibrosis Post-menopausal Alcohol use High cholesterol BiPAP (biphasic positive airway pressure) dependence DM type 2, goal HbA1c < 7% Recent weight loss Family history of breast cancer Intertrigo Left shoulder pain Right shoulder pain Chronic thoracic back pain Chronic neck pain Macromastia Gallstones Cataracts, bilateral Back problem Sleep apnea CLARY (obstructive sleep apnea) Tubular adenoma of colon P-ANCA titer positive Diverticular disease NAFLD (nonalcoholic fatty liver disease) Wears glasses Low iron Dietary restriction Difficulty swallowing History of hiatal hernia History of diverticulitis Shortness of breath on exertion History of edema History of echocardiogram History of stress test History of irregular heartbeat CPAP (continuous positive airway pressure) dependence Fatty liver Angioedema Vitamin D deficiency Nausea Heartburn Early satiety Diarrhea Anxiety Phantosmia Hypokalemia Hyperlipidemia Functional dyspepsia Obesity SOB (shortness of breath) Depression Diabetes GERD (gastroesophageal reflux disease) Non-smoker Sleep apnea Hypertension Morbid obesity Severe tongue swelling Home Medications ?Medication ?Instructions ?Recorded ?Last Taken ?Type vitamin E mixed 400 unit capsule 800 unit PO HS 01/24/22 Unknown History hydrochlorothiazide 25 mg tablet 25 mg PO DAILY 01/23/23 Unknown History potassium chloride 20 mEq 20 meq PO DAILY 01/23/23 Unknown History tablet,extended release(part/cryst) (Klor-Con M) venlafaxine 75 mg capsule,extended 75 mg PO DAILY 01/23/23 Unknown History release 24 hr metoprolol succinate 50 mg 50 mg PO DAILY 11/25/23 Unknown History tablet,extended release 24 hr atorvastatin 80 mg tablet 80 mg PO QHS #30 tabs 11/26/23 Unknown Rx clopidogrel 75 mg tablet 75 mg PO DAILY #30 tabs 11/26/23 Unknown Rx cholecalciferol (vitamin D3) 1,250 mcg PO QMONTH 03/05/24 Unknown History insulin glargine 100 unit/mL (3 10 unit subcut DAILY 01/24/25 Unknown History mL) subcutaneous pen (Lantus Solostar U-100 Insulin) tirzepatide 5 mg/0.5 mL 5 mg subcut QWEEK 01/24/25 Unknown History subcutaneous pen injector (Dior) Allergy/AdvReac Type Severity Reaction Status Date / Time aspirin Allergy Severe Tongue Verified 01/24/25 13:44 Swelling lisinopril Allergy Angioedema Verified 01/24/25 13:44 Family History Mother Myocardial infarction Abnormality of hormone Father Hypertension Cancer skin Sister Breast cancer Daughter History of blood clots Surgical History H/O bilateral breast reduction surgery History of esophagogastroduodenoscopy (EGD) History of cataract surgery (~02/2021) History of tubal ligation Hx of colonoscopy History of tonsillectomy and adenoidectomy History of cholecystectomy History of appendectomy Social History Smoking Status: Never smoker alcohol intake: current alcohol intake frequency: holidays/special occasions only substance use type: does not use caffeine: Yes (diet pop) Type: carbonated beverages additional social history: Does Not Take Aspirin Does Take Ibuprofen As Needed ROS Constitutional Constitutional: Reports as per HPI Eyes Eyes: Reports systems reviewed and no addt'l complaints, except as documented ENT HEENT: Reports systems reviewed and no addt'l complaints, except as documented Cardiovascular Cardiovascular: Reports as per HPI Respiratory/Chest Respiratory/Chest: Reports as per HPI Gastrointestinal Gastrointestinal: Reports systems reviewed and no addt'l complaints, except as documented Genitourinary Genitourinary: Reports systems reviewed and no addt'l complaints, except as documented Musculoskeletal Musculoskeletal: Reports as per HPI Integumentary Integumentary: Reports systems reviewed and no addt'l complaints, except as documented Neurologic Neurologic: Reports as per HPI Psychiatric Psychiatric: Reports systems reviewed and no addt'l complaints, except as documented Endocrine Endocrinology: Reports as per HPI Hematologic/Lymphatic Hematologic/Lymphatic: Reports as per HPI Allergic/Immunologic Allergic/Immunologic: Reports systems reviewed and no addt'l complaints, except as documented Physical Exam Narrative Patient resting company in her common position in bed. Const alert and oriented x3 HEENT normocephalic Eyes EOMs intact bilaterally Neck no JVD and no carotid bruits Chest Chest Narrative: Increased AP diameter Resp normal respiratory effort and clear to auscultation bilaterally Cardio Cardio Narrative: Distant heart tones Rate: tachycardic Rhythm: abnormal rhythm irregularly irregular Heart Sounds: S1 normal and S2 normal; Negative for click, gallop or murmur Extremity no pedal edema Neuro Neuro Narrative: Alert and oriented x 3 Psych mental status grossly normal Charges/Coding Visit Charges Inpatient E&M: 47562 Init Hosp L3 Objective Data Vital Signs: Vital Signs Temp Pulse Resp BP Pulse Ox O2 Del Method 97.5 F L 98 16 154/113 H 95 Room Air 01/25/25 07:00 01/25/25 07:32 01/25/25 07:00 01/25/25 07:32 01/25/25 07:00 01/25/25 07:00 Oxygen Delivery Method Room Air Weight: 199 lb 15.348 oz Body Mass Index (BMI) 36.6 Intake & Output: Intake and Output for Last 24 Hours 01/23/25 01/24/25 01/25/25 23:59 23:59 23:59 Intake Total 1000 / 1000 890 / 890 Balance 1000 / 1000 890 / 890 Lab / Micro Data Attestation: I reviewed the patient's lab results. 01/24/25 15:50 01/24/25 15:50 Labs: Laboratory Results - last 24 hr 01/24/25 15:50: WBC 10.6, RBC 5.07, Hgb 14.6, Hct 44.3, MCV 87.4, MCH 28.8, MCHC 33.0, RDW Std Deviation 42.6, RDW Coeff of Leonora 13.5, Plt Count 320, MPV 9.8, Immature Gran % (Auto) 0.300, Neut % (Auto) 66.0, Lymph % (Auto) 21.9, Montgomery % (Auto) 9.9, Eos % (Auto) 0.9, Baso % (Auto) 1.0, Absolute Neuts (auto) 7.0, Absolute Lymphs (auto) 2.31, Nucleated RBC % 0, PT 13.2, INR 1.0, APTT 29.3, Sodium 140, Potassium 3.6, Chloride 102, Carbon Dioxide 27.7, Anion Gap 10, BUN 20 H, Creatinine 0.99, Estim Creat Clear Calc 52.63, Est GFR (MDRD) Non-Af 59 L, BUN/Creatinine Ratio 20.4 H, Glucose 159 H, Calcium 9.3, Troponin T High Sens 13 01/24/25 15:59: Hemoglobin A1c 8.9 H 01/24/25 17:30: Troponin T Hi Sens 2 Hr 12 01/24/25 19:28: Troponin T Hi Sens 4Hr 11 01/24/25 19:44: POC Glucose 133 H 01/25/25 07:17: POC Glucose 120 H Micro: Microbiology 01/24/25 15:40 Mucosa - Nose SARS-CoV-2, Influenza & RSV (PCR) - Final Rhythm Strip Rhythm Strip: A-fib Rate: 105 Cardiology Labs/Tests 01/24/25 15:50: WBC 10.6, RBC 5.07, Hgb 14.6, Hct 44.3, MCV 87.4, MCH 28.8, MCHC 33.0, Plt Count 320, MPV 9.8, Immature Gran % (Auto) 0.300, Neut % (Auto) 66.0, Lymph % (Auto) 21.9, Montgomery % (Auto) 9.9, Eos % (Auto) 0.9, Baso % (Auto) 1.0, Absolute Neuts (auto) 7.0, Nucleated RBC % 0, PT 13.2, INR 1.0, APTT 29.3, Sodium 140, Potassium 3.6, Chloride 102, Carbon Dioxide 27.7, Anion Gap 10, BUN 20 H, Creatinine 0.99, Est GFR (MDRD) Non-Af 59 L, BUN/Creatinine Ratio 20.4 H, Glucose 159 H, Calcium 9.3 01/24/25 15:59: Hemoglobin A1c 8.9 H Rhythm: EKG: ECHO: Stress Test: Cardiac Cath: PCI: CT Surgery: Holter monitor: EPS: PPM: CXR: Chest CT Scan: Radiography Diagnostic Testing: Radiology Impression Chest X-Ray 01/24/25 15:27 IMPRESSION: No acute cardiopulmonary disease. Reading Location: [facility] Brain CT 01/24/25 15:55 IMPRESSION: No acute intracranial abnormality. Reading Location: [facility] [place] Risk Score for UA/STEMI Assesmment (YES = 1) Risk Stratification Applicable: No
--- NOTE | 2025-01-25 10:30 | CASEMGMT ---
RN CM Face to Face with patient for initial transition planning/care coordination assessment. RN CM introduced self and role at [facility]. Patient lying in bed, alert and oriented. Patient willing to participate in assessment and is able to answer all questions appropriately. Care providers, pharmacy, and demographics verified. Strata: 3 PCP: Scott Specialists: Gigi, technical editor; Friend, GI Preferred [facility]acy: [facility] Insurance: MCR, [employer] Prescription Benefit: yes Living Will/HPOA: yes, daughters Karen Patrick, and Silva Wood LNOK: daughters Living Arrangements: Patient lives with her mother in a single story condo with 1 step to enter. Patient is independent at home. Transportation: self, daughters DME/HHC: Patient has cane, raised toilet, shower chair, grab bars, glucometer, bipap, and BP cuff at home. No previous HHC or SNF. Patient wishes to discharge home, denies need for home health at this time. Patient states she has no further needs or concerns at this time. CM to follow for discharge planning needs that may arise. Disposition Plan: Patient to discharge home with family support and follow-up plans in place. Starr LANE, RN, CM
[2025-01-25] MEDS: APIXABAN 5 MG TABLET PO (10:42)
[2025-01-25] MEDS: Insulin Glargine-YFGN 100 UNIT/ML Pen 10 UNIT SC (10:42)
--- NOTE | 2025-01-25 14:53 | DCINST_ITS ---
Discharge Instructions
--- NOTE | 2025-01-25 14:53 | PCM.DC ---
Discharge Instructions DC O2, CPAP, BIPAP needs Home O2 Discharge instructions: No Dressing / Incision Discharge Activity: Return to Normal Activity Dressing / Incision Call your doctor if you observe: Fever of 101 or Higher, Shortness of breath, Dizziness, Fainting spells, Swelling in the ankles, Chest pain and Increased palpitations (irregular heartbeat) Follow Up Care Test Results: Test results from this visit will be discussed in further detail at your follow-up appointment, if applicable. Discharge Plan Admission Admit Date/Time: 01/24/25 18:27 Attending Provider: Tj Cedeño Primary Care Provider: Dejuan Chavez Consulting Providers: Joshua Paz; Lex Jack Instructions Patient Instructions: AFib Dc Discharge Orders/Prescriptions Prescriptions: New metoprolol tartrate 50 mg Tablet 50 mg PO BID 30 Days Qty: 60 0RF Eliquis 5 mg Tablet 5 mg PO BID 30 Days Qty: 60 0RF Continued vitamin E mixed 400 unit capsule 800 unit PO HS venlafaxine 75 mg capsule,extended release 24hr 75 mg PO DAILY potassium chloride [Klor-Con M20] 20 mEq tablet,ER particles/crystals 20 meq PO DAILY atorvastatin 80 mg Tablet 80 mg PO QHS Qty: 30 0RF cholecalciferol (vitamin D3) 1,250 mcg PO QMONTH Mounjaro 5 mg/0.5 mL pen injector 5 mg subcut QWEEK insulin glargine [Lantus Solostar U-100 Insulin] 100 unit/mL (3 mL) insulin pen 10 unit subcut DAILY Held hydrochlorothiazide 25 mg tablet 25 mg PO DAILY Hold Instructions: Resume on 02/05/25. clopidogrel 75 mg Tablet 75 mg PO DAILY Qty: 30 0RF Hold Instructions: Resume on 02/05/25. Discontinued metoprolol succinate 50 mg tablet extended release 24 hr 50 mg PO DAILY Referrals / Follow Up: Radhames Alas MD [Med Staff - Active Staff, Cardiology] - Within 1 Week Referral Note: Per Dr. Alas, she needs to be seen at the end of this week or early next week Dejuan Chavez DO [Primary Care Provider, Family Practice] - Within 1 Week Disposition Disposition (needs filled in before D/C Order can be placed): Home, Self Care
--- NOTE | 2025-01-25 15:36 | CASEMGMT ---
Patient is discharging on Eliquis. KATIE LUU called [facility] to inquire about copay for Eliquis. Per pharmacist, $0 copay for Eliquis.
--- NOTE | 2025-01-25 16:51 | PCM.DC.SUM ---
Providers Date of Admission: 01/24/25 Primary Care Physician: Dr. Dejuan Chavez, Consultations 01/24/25 19:21 Consult: Cardiology Routine Consulting Provider: Joshua Paz Reason for Consult: syncope, new onset afib/flutter EMERGENT Consult: No MD Notified: Yes Date Notified: 01/25/25 Time Notified: 06:53 Method of Notification: Text Reason For Visit: SYNCOPE NEW ONSET AFIB/FLUTTER Diagnosis Discharge Diagnosis (1) Syncope and collapse: Status: Acute Code(s): R55 - Syncope and collapse (2) Atrial fibrillation/flutter: Status: Acute Code(s): I48.91 - Unspecified atrial fibrillation; I48.92 - Unspecified atrial flutter (3) Diabetes: Status: Acute Code(s): E11.9 - Type 2 diabetes mellitus without complications Qualifiers: Diabetes mellitus type: type 2 Diabetes mellitus fci insulin use: unspecified local [employer] insulin use status Diabetes mellitus complication status: without complication Qualified Code(s): E11.9 - Type 2 diabetes mellitus without complications Medications at Discharge Home Medications vitamin E mixed 400 unit capsule 800 unit PO HS 01/24/22 hydrochlorothiazide 25 mg tablet 25 mg PO DAILY 01/23/23 Held on 01/25/25. Instructions: Resume on 02/05/25. potassium chloride 20 mEq tablet,extended release(part/cryst) (Klor-Con M) 20 meq PO DAILY 01/23/23 venlafaxine 75 mg capsule,extended release 24 hr 75 mg PO DAILY 01/23/23 atorvastatin 80 mg tablet 80 mg PO QHS #30 tabs 11/26/23 clopidogrel 75 mg tablet 75 mg PO DAILY #30 tabs 11/26/23 Held on 01/25/25. Instructions: Resume on 02/05/25. cholecalciferol (vitamin D3) 1,250 mcg PO QMONTH 03/05/24 insulin glargine 100 unit/mL (3 mL) subcutaneous pen (Lantus Solostar U-100 Insulin) 10 unit subcut DAILY 01/24/25 tirzepatide 5 mg/0.5 mL subcutaneous pen injector (Mounjaro) 5 mg subcut QWEEK 01/24/25 apixaban 5 mg tablet (Eliquis) 5 mg PO BID 30 days #60 tabs 01/25/25 metoprolol tartrate 50 mg tablet 50 mg PO BID 30 days #60 tabs 01/25/25 Hospital Course Operations None Procedures 2-D Echocardiogram Summary of Care Provided Minutes Spent on Discharge: 37 Hospital Course: Per HPI: VARGAS RODRIGUEZ, is a 74 F who presented to [facility] ED on 01/24/2025 with syncope. Medical history significant for class II obesity, CLARY, type 2 diabetes mellitus, nonobstructive carotid artery disease, hypertension, hyperlipidemia, and anxiety/depression. She lives at home with her mother who is 97. She reports a good functional status at baseline. She reports having a few presyncopal episodes yesterday and the symptoms resolved with her sitting down and putting her head down on the table. Today, she had another similar episode but she put her head down on the table and then passed out for period time. When she woke up, she tried to stand up but then passed out again. Does not report hitting her head on the ground. EMS then brought her in for further evaluation. In the ED she was mildly hypotensive to the 90s to 100 systolic and tachycardic to the low 100s. EKG showed A-fib/flutter with heart rate 101. Patient has no prior diagnosis of A-fib/flutter. She otherwise was afebrile and stable on room air at rest. CBC and BMP were benign. Troponins negative x 2. Chest x-ray and CT brain were unremarkable. ED physician discussed case with cardiology who recommended admitting the patient for further management. Hospitalist was then contacted for admission. I saw the patient at bedside in the ED. Patient was sitting back fairly comfortably in bed, conversing normally, in no acute distress. She denied any dizziness or lightheadedness currently. She denied any palpitations. She has chronic mild lower extremity swelling that is stable for her. Her last A1c was 12.4% in September. She reports taking her Lantus and Mounjaro as prescribed. She does report feeling thirsty frequently and having frequent urine output. She denies any recent illnesses. No other acute concerns currently. Will be admitted for further management. Hospital Course: 1. Syncope secondary to new onset A-fib?74-year-old female presented to the hospital with syncope. She feels much better today, she did receive some IV fluids for her borderline hypotension yesterday and was started on rate control medications which have helped with her new onset A-fib, her echocardiogram demonstrates an EF of 65% with mildly dilated left atrium. She was started on Eliquis at 5 mg p.o. twice daily and her metoprolol was changed to 50 mg p.o. twice daily, she did tolerate the first dose. I discussed with her the possibility for discharge today and she expressed understanding of the risk and benefits of going home and would like to go home today. I discussed the discharge with cardiology as well and they recommended outpatient follow-up in a week. Will hold her Plavix secondary to the initiation of Eliquis pending evaluation by cardiology and they can restarted at their discretion. Given the changes in her blood pressure medication and the fact that she came in with syncope I also held her hydrochlorothiazide, if she continues to tolerate her blood pressures on the metoprolol we do not have to make any further adjustments and she can likely restart it. 2. Anxiety, depression, nonobstructive carotid disease, essential hypertension, hyperlipidemia, poorly controlled type 2 diabetes are all chronic medical conditions which complicate her care. Her home medications were continued where appropriate Physical Exam Narrative General: Alert, Oriented x3, Cooperative, No apparent distress HEENT: Atraumatic, PERRLA, EOMI, Normocephalic Oral: Moist Mucosa Neck: Supple, No JVD Lungs: Diminished, Normal air movement, No rhonchi, No wheeze, No rales Cardiovascular: Irregular rate and rhythm, Normal S1, Normal S2, No murmurs Abdomen: Soft, Non Tender, Non-Distended, No Hepato-splenomegaly Extremities: Trace edema, Capillary Refill Less than 3 Seconds Skin: No rashes, No breakdown Musculoskeletal: No Tenderness to Palpation of Joints or Extremities Neurological: No focal neurological deficits, moves all extremities Psych/Mental Status: Normal Affect, Appropriate Weight / BMI Weight Weight: 199 lb 15.348 oz Body Mass Index (BMI) 36.6 ABG / Lab / Microbiology Data 01/24/25 15:50 01/24/25 15:50 Laboratory: Laboratory Results - last 24 hr 01/24/25 15:59: Hemoglobin A1c 8.9 H 01/24/25 17:30: Troponin T Hi Sens 2 Hr 12 01/24/25 19:28: Troponin T Hi Sens 4Hr 11 01/24/25 19:44: POC Glucose 133 H 01/25/25 07:17: POC Glucose 120 H 01/25/25 11:22: POC Glucose 164 H 01/25/25 12:13: POC Glucose 185 H Microbiology: Microbiology 01/24/25 15:40 Mucosa - Nose SARS-CoV-2, Influenza & RSV (PCR) - Final Radiography Diagnostic Testing: Radiology Impression Chest X-Ray 01/24/25 15:27 IMPRESSION: No acute cardiopulmonary disease. Reading Location: [facility] Echocardiogram 01/24/25 19:21 Interpretation Summary The study was technically difficult. Mild concentric left ventricular hypertrophy. The left ventricular ejection fraction is 65 %. Unable to assess diastolic dysfunction due to arrhythmia. The left atrium is mildly enlarged. Ordering Physician: Lex Jack Performed By: Noé Victoria RCS D/C Instructions Call your doctor if you observe: Fever of 101 or Higher, Shortness of breath, Dizziness, Fainting spells, Swelling in the ankles, Chest pain and Increased palpitations (irregular heartbeat) DC O2, CPAP, BIPAP Needs Home O2 Discharge instructions: No Meaningful Use Info Meaningful Use Meaningful Use Diagnoses (Choose all that apply): None applicable Discharge Plan Admission Admit Date/Time: 01/24/25 18:27 Attending Provider: Tj Cedeño Primary Care Provider: Dejuan Chavez Consulting Providers: Joshua Paz; Lex Jack Instructions Patient Instructions: AFib Dc Discharge Orders/Prescriptions Prescriptions: New metoprolol tartrate 50 mg Tablet 50 mg PO BID 30 Days Qty: 60 0RF Eliquis 5 mg Tablet 5 mg PO BID 30 Days Qty: 60 0RF Continued vitamin E mixed 400 unit capsule 800 unit PO HS venlafaxine 75 mg capsule,extended release 24hr 75 mg PO DAILY potassium chloride [Klor-Con M20] 20 mEq tablet,ER particles/crystals 20 meq PO DAILY atorvastatin 80 mg Tablet 80 mg PO QHS Qty: 30 0RF cholecalciferol (vitamin D3) 1,250 mcg PO QMONTH Mounjaro 5 mg/0.5 mL pen injector 5 mg subcut QWEEK insulin glargine [Lantus Solostar U-100 Insulin] 100 unit/mL (3 mL) insulin pen 10 unit subcut DAILY Held hydrochlorothiazide 25 mg tablet 25 mg PO DAILY Hold Instructions: Resume on 02/05/25. clopidogrel 75 mg Tablet 75 mg PO DAILY Qty: 30 0RF Hold Instructions: Resume on 02/05/25. Discontinued metoprolol succinate 50 mg tablet extended release 24 hr 50 mg PO DAILY Referrals / Follow Up: Radhames Alas MD [Med Staff - Active Staff, Cardiology] - Within 1 Week Referral Note: Per Dr. Alas, she needs to be seen at the end of this week or early next week Dejuan Chavez DO [Primary Care Provider, Family Practice] - Within 1 Week Disposition Disposition (needs filled in before D/C Order can be placed): Home, Self Care Charges/Coding Visit Charges Inpatient E&M: 39486 Disch Hosp >30min
== END 2025-01-25 15:57 | disposition home or self-care (01) | DRG 310 ==
LOC: ED 18:32 → PCU 18:53
PROVIDERS: Admitting Provider Hospitalist; Emergency Provider Emergency Medicine; PCP Family Medicine; Visit Provider Family Medicine
DX: I48.91 Unspecified atrial fibrillation (principal); E11.65 Type 2 diabetes mellitus with hyperglycemia; I10 Essential (primary) hypertension; F32.A Depression, unspecified; E66.812 Obesity, class 2; G47.33 Obstructive sleep apnea (adult) (pediatric); F41.9 Anxiety disorder, unspecified; I48.92 Unspecified atrial flutter; Z79.4 Long term (current) use of insulin; I25.10 Atherosclerotic heart disease of native coronary artery without angina pectoris; E78.5 Hyperlipidemia, unspecified; Z68.36 Body mass index [BMI] 36.0-36.9, adult; Z86.16 Personal history of COVID-19; Z79.899 Other long term (current) drug therapy
CPT/HCPCS: 36415; 70450; 71046; 80048; 82962; 83036; 84484; 85025; 85610; 85730; 87631; 93005; 93306; 99285; Q9957; A4216; C8929